=== PATIENT | female | born 1945 | race Caucasian/White ===

== ENCOUNTER 2017-09-24 14:22 | Emergency (ER) | payer OTHER, SELFPAY ==
[2017-09-24 14:41] VITALS: BP 136/58; PULSE 63; RESP 16; TEMP 36.3; O2SAT 96; BMI 37.5
--- NOTE | 2017-09-24 15:21 | ED.NEUROSD ---
HPI - Neuro Symptoms/Deficit General Chief Complaint: Neuro Symptoms/Deficit Stated Complaint: EXTREME SWELLING LOWER LIMBS,SOB,DIZZY,LOSS OF BAL Time Seen by Provider: 09/24/17 15:19 Source: patient Mode of arrival: ambulatory Limitations: no limitations History of Present Illness HPI Narrative: 71-year-old female with a history of multiple medical problems here for evaluation of several issues. Patient states that over the past several days she has had increasing lower extremity swelling. She has a diagnosis of diastolic heart failure. Is on 160 mg of Lasix at bedtime. She denies any chest pain. Denies any shortness of breath. Does state that she has had a 10 lb weight gain within the past week. Patient also states that she is here for 3 separate episodes. She states that yesterday she was leaving her primary doctor's office at the [place] when she was walking around her car and felt very ?unsteady ?unsure whether not she was having vertigo at that time. She states that she felt like she was going to fall over. Did not fall. Recorded no other symptoms at the time. Unsure exactly how long the symptoms lasted. She states that this morning she had 1 further episode very similar to this 1 and also had 1 other episodes where she did have vertigo. Related Data Home Medications Medication Instructions Recorded Confirmed insulin glargine [Lantus U-100 30 unit SQ HS #0 08/18/11 09/24/17 Insulin] lisinopril 20 mg PO QDAY #0 08/18/11 09/24/17 Lubricant Eye 1 applic OPHTHALMIC (EYE) BEDTIME 09/24/17 09/24/17 acetaminophen 650 mg PO Q4H PRN MDD 4000 mg 09/24/17 09/24/17 albuterol sulfate 2 puff INHALATION Q4H PRN 09/24/17 09/24/17 apixaban 5 mg PO BID 09/24/17 09/24/17 chlorhexidine gluconate 15 ml PO BID 09/24/17 09/24/17 clindamycin HCl 600 mg PO .ONCE 09/24/17 09/24/17 clobetasol 1 applic TOPICAL BID PRN 09/24/17 09/24/17 diltiazem HCl 30 mg PO Q6H 09/24/17 09/24/17 ferrous sulfate 7.5 ml PO QPM 09/24/17 09/24/17 fluoride (sodium) 1 applic DENTAL BEDTIME 09/24/17 09/24/17 folic acid 1 mg PO QPM 09/24/17 09/24/17 furosemide 160 mg PO QPM 09/24/17 09/24/17 hydrophilic 1 applic TOPICAL QID PRN 09/24/17 09/24/17 hydroxyzine pamoate 25 mg PO Q4H PRN 09/24/17 09/24/17 lansoprazole 1 tab PO BIDAC 09/24/17 09/24/17 loperamide 1 dose PO PRN PRN MDD 8 caps 09/24/17 09/24/17 magnesium oxide 420 mg PO QPM 09/24/17 09/24/17 methotrexate sodium (PF) 0.3 ml SUB-Q WEEKLY 09/24/17 09/24/17 polyvinyl alcohol [Artificial 1 - 2 drp OPHTHALMIC (EYE) QID PRN 09/24/17 09/24/17 Tears (polyvin alc)] tacrolimus 1 applic TOPICAL BID 09/24/17 09/24/17 vits A and D-white pet-lanolin [A 1 applic TOPICAL DAILY PRN 09/24/17 09/24/17 and D (willie, pet)] Allergies Allergy/AdvReac Type Severity Reaction Status Date / Time adhesive [ADHESIVE] Allergy Mild Unverified 07/16/17 12:18 aspirin [ASPIRIN] Allergy Mild Unverified 07/16/17 12:18 meperidine [From DEMEROL] Allergy Mild Unverified 07/16/17 12:18 metoprolol [METOPROLOL] Allergy Mild Unverified 07/16/17 12:18 pioglitazone [From ACTOS] Allergy Mild Unverified 07/16/17 12:18 prochlorperazine Allergy Mild Unverified 07/16/17 12:18 [From COMPAZINE] rosiglitazone [From AVANDIA] Allergy Mild Unverified 07/16/17 12:18 sulfamethoxazole Allergy Mild Unverified 07/16/17 12:18 [From BACTRIM] trimethoprim [From BACTRIM] Allergy Mild Unverified 07/16/17 12:18 venom-honey bee Allergy Mild Unverified 07/16/17 12:18 [BEE VENOM (HONEY BEE)] pseudoephedrine Allergy Unknown Unverified 07/16/17 12:18 [From ACTIFED] triprolidine [From ACTIFED] Allergy Unknown Unverified 07/16/17 12:18 PORK Allergy Unknown Uncoded 07/16/17 12:18 Review of Systems Constitutional Denies chills, Denies fever(s), Denies headache(s), Denies lethargy and Denies weakness ENT Ears, Nose, Mouth, and Throat: Reports vertigo, Reports dizziness, Denies headache(s), Reports tinnitus (Chronic), Denies sinus pressure, Denies sore throat and Denies throat swelling Cardiovascular Denies chest pain, Reports pedal edema, Reports edema, Denies irregular heart rhythm, Denies leg ulcers, Reports leg edema, Denies palpitations and Denies dyspnea Respiratory Denies chest congestion, Denies cough, Denies dyspnea and Denies wheezing Gastrointestinal Gastrointestinal: Denies constipation, Denies diarrhea, Denies nausea and Denies vomiting Neurologic Reports vertigo, Reports dizziness, Denies headache(s) and Denies weakness Endocrine Denies palpitations Allergic/Immunologic Denies throat swelling and Denies wheezing [facility] Social History Smoking Status: Never smoker Exam Initial Vital Signs Initial Vital Signs: Vital Signs Temperature 97.4 F L 09/24/17 14:41 Pulse Rate 63 09/24/17 14:41 Respiratory Rate 16 09/24/17 14:41 Blood Pressure 136/58 H 09/24/17 14:41 Pulse Oximetry 96 09/24/17 14:41 Const General: cooperative and well developed Nutritional Appearance: well nourished Orientation: alert, awake, oriented x3 and not confused [facility] Head: normocephalic and atraumatic Ears: external ears normal and TM's normal bilaterally Nose: external nose normal and No nasal discharge Face and sinus: sinuses nontender, face symmetric, no sinus tenderness and No dry mucous membranes Mouth: oral mucosae normal and moist mucous membranes Teeth and gingiva: dentition normal Throat: tonsils normal and uvula midline Resp Effort & Inspection: normal respiratory effort, able to speak in complete sentences, no respiratory distress and no use of accessory muscles Auscultation: clear to auscultation bilaterally, no rales, no rhonchi and no wheezes Cardio Rate: regular rate Rhythm: regular rhythm Heart Sounds: no click, no gallops, no murmurs and no rubs Pulses: normal peripheral pulses Back/Spine/Pelvis Back: No CVA tenderness Neuro General: alert, oriented x3, gait normal and no focal motor deficits Cranial Nerves: CN's II-XI intact bilaterally Cognition: normal cognition Speech: speech normal Gait: normal gait Motor: muscle tone normal throughout Sensory Exam: no sensory deficits noted Extrem Other: Patient with 3+ bilateral pitting edema right greater than left from toes to knees Course Orders Ordered: ED Orders 09/24/17 15:19 EKG-12 Lead Stat 09/24/17 15:23 XR chest 1V Stat 09/24/17 15:31 B Type Natriuretic Peptide Stat Basic Metabolic Panel Stat Complete Blood Count AUTO DIFF Stat Troponin I Stat Vital Signs - 8 hr 09/24/17 14:41 09/24/17 15:46 09/24/17 16:05 Temperature 97.4 F L Pulse Rate 63 58 L 60 Respiratory Rate 16 11 L 15 Blood Pressure 136/58 H Blood Pressure [Right Arm] 129/53 H 144/60 H Pulse Oximetry 96 99 99 09/24/17 17:00 Temperature Pulse Rate 55 L Respiratory Rate 12 Blood Pressure Blood Pressure [Right Arm] 120/50 L Pulse Oximetry 97 MDM - Neuro Symptoms/Deficit Lab Data Attestation: I reviewed the patient's lab results. Result diagrams: 09/24/17 15:31 09/24/17 15:31 Lab Results 09/24/17 09/24/17 Range/Units 15:31 15:31 WBC 6.6 (4.5-11.0) X10^3/uL RBC 3.37 L (4.0-5.2) X10^6/uL Hgb 9.3 L (12.0-16.0) g/dL Hct 29.1 L (36-46) % MCV 86.3 (80-100) fL MCH 27.7 (26-34) PG MCHC 32.1 (30-36) % RDW 14.9 H (11.6-14.8) % Plt Count 290 (150-400) X10^3/uL Neut % (Auto) 52.5 (50-75) % Lymph % (Auto) 36.9 (25-40) % [place] % (Auto) 8.1 (3-14) % Eos % (Auto) 2.0 (2-4) % Baso % (Auto) 0.5 (0-2) % Neut # (Auto) 3400 (7679-9056) /uL Sodium 133 L (137-145) mmol/L Potassium 4.8 (3.4-5.1) mmol/L Chloride 96 L (98-107) mmol/L Carbon Dioxide 26 (22-32) mmol/L BUN 46 H (7-17) mg/dL Creatinine 1.20 H (0.52-1.04) mg/dL Estimated GFR 44.2 L (>60) mL/min BUN/Creatinine Ratio 38.3 H (6-22) Glucose 139 H (80-110) mg/dL Calcium 9.2 (8.4-10.2) mg/dL Troponin I < 0.012 (0.01-0.034) ng/mL B-Natriuretic Peptide 159.0 H (<100) Imaging Data Chest x-ray: Radiologist's impression: PROCEDURE: XR CHEST 1V INDICATIONS: Shortness of breath history of congestive heart failure TECHNIQUE: One view of the chest was acquired. COMPARISON: [facility], CHEST 1 VIEW, 04/04/2017, 10:10. FINDINGS: Surgical changes and devices: None. Lungs and pleura: No pleural effusions or pneumothorax. Lungs are free of pneumonia but there is a chronic mild degree of interstitial prominence. Mediastinum: Mediastinal contours appear normal. Heart size is normal. Bones and chest wall: No suspicious bony lesions. Overlying soft tissues appear unremarkable. IMPRESSION: Mild interstitial prominence, no pneumonia found. Dictated by: Erik Nelson M.D. on 09/24/2017 at 15:44 ECG Data Attestation: I personally reviewed and interpreted this ECG as follows: Prior ECG tracings: available for review Interpretation: Time 1519 hr Sinus rhythm First degree AV block Ventricular rate is 61 Normal axis Normal interval Normal QRS No ST T wave changes Unchanged from comparison EKG dated 04/04/2017 MDM Narrative Medical decision making narrative: Patient with a normal neurologic exam here in the emergency department. Does have bilateral lower extremity swelling which she reports as a 10 lb weight gain over the past week however has no respiratory distress and no chest pain clinically is not in heart failure. We did discuss this with the patient. Decision was made to increase the patient's Lasix to 40 mg in the morning in her normal 160 mg in the evening. Her neurologic symptoms are not consistent with a CVA. Not consistent with a TIA. Had a normal neurologic exam here. Do suspect vertigo since she clearly describes this as 1 of her episodes that she had. She does have a follow-up appoint with her primary doctor on Friday. She was given return precautions. She expressed understanding and agreement with plan. Discharge Plan Departure Patient Disposition: Home, Self-Care Clinical Impression: Edema, Vertigo, Lightheadedness Discharge Date/Time: 09/24/17 17:46 Interventions: ED Discharge Assessment Last Done: 09/24/17 17:41 Instructions: Edema (Alternative Therapy), DI for Dependent Edema Activity Restrictions/Additional Instructions: Recommend that you increase her Lasix to 40 mg in the morning and 160 mg in the evening like we discussed. Keep your appointment that she have with her primary doctor on Friday. Return to the emergency department for any new or worsening symptoms Prescriptions: No Action lisinopril 20 MG tablet 20 mg PO QDAY Qty: 0 RF: 0 insulin glargine [Lantus U-100 Insulin] 100 UNIT/1 ML solution 30 unit SQ HS Qty: 0 RF: 0 acetaminophen 325 mg Tablet 650 mg PO Q4H MDD 4000 mg PRN (Reason: Pain, Moderate) RF: 0 magnesium oxide 420 mg Tablet 420 mg PO QPM RF: 0 clindamycin HCl 300 mg Capsule 600 mg PO .ONCE RF: 0 loperamide 2 mg Capsule 1 dose PO PRN MDD 8 caps PRN (Reason: Diarrhea) RF: 0 hydrophilic Ointment 1 applic TOPICAL QID PRN (Reason: Dry Skin) RF: 0 polyvinyl alcohol [Artificial Tears (polyvin alc)] 1.4 % Drops 1 - 2 drp ophthalmic (eye) QID PRN (Reason: Dry Eyes) RF: 0 furosemide 80 mg Tablet 160 mg PO QPM RF: 0 tacrolimus 0.1 % Ointment 1 applic TOPICAL BID RF: 0 folic acid 1 mg Tablet 1 mg PO QPM RF: 0 clobetasol 0.05 % Ointment 1 applic TOPICAL BID PRN (Reason: Rash) RF: 0 albuterol sulfate 90 mcg/actuation Hfa Aerosol Inhaler 2 puff Inhalation Q4H PRN (Reason: Shortness Of Breath) RF: 0 diltiazem HCl 30 mg Tablet 30 mg PO Q6H RF: 0 fluoride (sodium) 1.1 % Gel 1 applic Dental BEDTIME RF: 0 hydroxyzine pamoate 25 mg Capsule 25 mg PO Q4H PRN (Reason: anxiety or sleep) RF: 0 methotrexate sodium (PF) 25 mg/mL Solution 0.3 ml Sub-Q WEEKLY RF: 0 lansoprazole 30 mg Tablet,Disintegrat, Delay Rel 1 tab PO BIDAC RF: 0 chlorhexidine gluconate 0.12 % Mouthwash 15 ml PO BID RF: 0 vits A and D-white pet-lanolin [A and D (willie, pet)] Ointment 1 applic Topical DAILY PRN (Reason: Dry Skin) RF: 0 apixaban 5 mg Tablet 5 mg PO BID RF: 0 ferrous sulfate 220 mg (44 mg iron)/5 mL Elixir 7.5 ml PO QPM RF: 0 Lubricant Eye ointment 1 applic ophthalmic (eye) BEDTIME RF: 0
[2017-09-24 15:46] VITALS: BP 129/53; PULSE 58; RESP 11; O2SAT 99
[2017-09-24 15:50] LABS: Add Manual Diff / Slide Review NO; Basophils Percent Auto 0.5 % (0-2); Hematocrit 29.1 % (36-46); Hemoglobin 9.3 g/dL (12.0-16.0); Lymphocytes Percent Auto 36.9 % (25-40); Mean Corpuscular HGB Conc 32.1 % (30-36); Mean Corpuscular Hemoglobin 27.7 PG (26-34); Mean Corpuscular Volume 86.3 fL (80-100); Monocytes Percent Auto 8.1 % (3-14); Neutrophils Absolute Auto 3400 /uL (3000-5900); Neutrophils Percent Auto 52.5 % (50-75); Platelet Count 290 X10^3/uL (150-400); Red Blood Cell Count 3.37 X10^6/uL (4.0-5.2); Red Cell Distribution Width 14.9 % (11.6-14.8); White Blood Cell Count 6.6 X10^3/uL (4.5-11.0)
--- NOTE | 2017-09-24 15:54 | PC.NURSE ---
Pt recently dx'd with afib and pneumonia. Yesterday began to feel dizzy. This morning woke up with room spinning and increased difficulty with gait. She has an abnormal gait as baseline, which she uses a walker for. However, she states today it is worse and she almost fell in the bathroom. She also reports a 6lb weight gain overnight and SOB yesterday. Today she does have SOB with exertion and cough.
[2017-09-24 15:56] LABS: BUN Creatinine Ratio 38.3 (6-22); Blood Urea Nitrogen 46 mg/dL (7-17); Calcium 9.2 mg/dL (8.4-10.2); Carbon Dioxide 26 mmol/L (22-32); Chloride 96 mmol/L (98-107); Estimated Glomerular Filt Rate 44.2 mL/min (>60); Glucose 139 mg/dL (80-110); HEMOLYSIS < 15 (0-50); Potassium 4.8 mmol/L (3.4-5.1); Sodium 133 mmol/L (137-145)
[2017-09-24 16:05] VITALS: BP 144/60; PULSE 60; RESP 15; O2SAT 99
[2017-09-24 16:08] LABS: Troponin I < 0.012 ng/mL (0.01-0.034)
[2017-09-24 17:00] VITALS: BP 120/50; PULSE 55; RESP 12; O2SAT 97
== END 2017-09-24 17:46 | disposition home or self-care (01) ==
PROVIDERS: Emergency Provider Emergency Medicine; PCP Internal Medicine
DX: R60.9 Edema, unspecified (principal); R42 Dizziness and giddiness
CPT/HCPCS: 36591; 71045; 80048; 83880; 84484; 85025; 93005; 93010; 99283; 99285; 99291

== ENCOUNTER 2017-11-05 13:48 | Emergency (ER) | payer OTHER, SELFPAY ==
[2017-11-05] VITALS (8 sets, daily range): BP systolic 102–123; BP diastolic 41–60; PULSE 65–129; RESP 16–18; O2SAT 96–99; BMI 36.3
--- NOTE | 2017-11-05 13:58 | ED_ITS ---
HPI - General Adult General Chief complaint: Arrhythmia/Palpitations Stated complaint: HEART AND AFIB ISSUES Time Seen by Provider: 11/05/17 13:57 Source: patient Mode of arrival: ambulatory Limitations: no limitations History of Present Illness HPI narrative: 72-year-old female here for evaluation of palpitations and not feeling well. States that this is been off and on for some time but worsening over the past day or so. No chest pain but does have some shortness of breath. States she does have a history of atrial fibrillation. Has been on diltiazem in the past but has stopped secondary to swelling in her lower extremities. She is on anticoagulation states she does take it 2 times a day and has been taking it has not missed a dose. She stated that she did take her diltiazem this morning because she was feeling the palpitations. Came into the emergency department for evaluation. Related Data Home Medications Medication Instructions Recorded Confirmed insulin glargine [Lantus U-100 30 unit SQ HS #0 08/18/11 11/05/17 Insulin] lisinopril 20 mg PO QDAY #0 08/18/11 11/05/17 Lubricant Eye 1 applic OPHTHALMIC (EYE) BEDTIME 09/24/17 11/05/17 acetaminophen 650 mg PO Q4H PRN MDD 4000 mg 09/24/17 11/05/17 albuterol sulfate 2 puff INHALATION Q4H PRN 09/24/17 11/05/17 apixaban 5 mg PO BID 09/24/17 11/05/17 chlorhexidine gluconate 15 ml PO BID 09/24/17 11/05/17 clindamycin HCl 600 mg PO .ONCE 09/24/17 11/05/17 clobetasol 1 applic TOPICAL BID PRN 09/24/17 11/05/17 diltiazem HCl 30 mg PO Q6H 09/24/17 11/05/17 ferrous sulfate 7.5 ml PO QPM 09/24/17 11/05/17 fluoride (sodium) 1 applic DENTAL BEDTIME 09/24/17 11/05/17 folic acid 1 mg PO DAILY 09/24/17 11/05/17 furosemide 160 mg PO QAM 09/24/17 11/05/17 lansoprazole 1 tab PO BIDAC 09/24/17 11/05/17 magnesium oxide 420 mg PO QPM 09/24/17 11/05/17 tacrolimus 1 applic TOPICAL BID 09/24/17 11/05/17 vits A and D-white pet-lanolin [A 1 applic TOPICAL DAILY PRN 09/24/17 11/05/17 and D (willie, pet)] carboxymethylcellulose sodium 1 - 2 drp OPHTHALMIC (EYE) QID 11/05/17 11/05/17 cholecalciferol (vitamin D3) 4,000 unit PO DAILY 11/05/17 11/05/17 [Vitamin D3] coenzyme Q10 1 cap PO DAILY 11/05/17 11/05/17 cyanocobalamin (vitamin B-12) 5,000 mcg PO DAILY 11/05/17 11/05/17 cyclosporine 5 ml PO TID 11/05/17 11/05/17 dextrose 15 g PO PRN PRN 11/05/17 11/05/17 metformin 500 mg PO BID 11/05/17 11/05/17 methotrexate sodium 7.5 mg PO QWEEK 11/05/17 11/05/17 metronidazole 500 mg PO BID 11/05/17 11/05/17 multivitamin with minerals 1 cap PO DAILY 11/05/17 11/05/17 nitroglycerin [Nitrostat] 0.4 mg SUBLINGUAL Q5-15M PRN 11/05/17 11/05/17 Allergies Allergy/AdvReac Type Severity Reaction Status Date / Time adhesive [ADHESIVE] Allergy Mild Verified 11/05/17 17:49 aspirin [ASPIRIN] Allergy Mild Verified 11/05/17 17:49 meperidine [From DEMEROL] Allergy Mild Verified 11/05/17 17:49 metoprolol [METOPROLOL] Allergy Mild Verified 11/05/17 17:49 pioglitazone [From ACTOS] Allergy Mild Verified 11/05/17 17:49 prochlorperazine Allergy Mild Verified 11/05/17 17:49 [From COMPAZINE] rosiglitazone [From AVANDIA] Allergy Mild Verified 11/05/17 17:49 sulfamethoxazole Allergy Mild Verified 11/05/17 17:49 [From BACTRIM] trimethoprim [From BACTRIM] Allergy Mild Verified 11/05/17 17:49 venom-honey bee Allergy Mild Verified 11/05/17 17:49 [BEE VENOM (HONEY BEE)] pseudoephedrine Allergy Unknown Verified 11/05/17 17:49 [From ACTIFED] triprolidine [From ACTIFED] Allergy Unknown Verified 11/05/17 17:49 PORK Allergy Unknown Uncoded 11/05/17 17:49 iv contrast Allergy Uncoded 11/05/17 17:49 Review of Systems Constitutional Denies chills and Reports fatigue ENT Ears, Nose, Mouth, and Throat: Denies vertigo and Denies dizziness Cardiovascular Denies chest pain, Reports rapid heart rate, Reports palpitations and Reports dyspnea Respiratory Denies chest congestion, Denies cough and Reports dyspnea Gastrointestinal Gastrointestinal: Denies diarrhea, Denies nausea and Denies vomiting Genitourinary Denies difficulty voiding and Denies dysuria Musculoskeletal Denies myalgias and Denies arthralgias Integumentary/Breasts Denies lesions and Denies rash Neurologic Denies vertigo and Denies dizziness Endocrine Reports fatigue and Reports palpitations Hematologic/Lymphatic Reports easy bleeding ( On anticoagulation) and Denies easy bruising [facility] Medical History Atrial fibrillation (Acute) Social History Smoking Status: Never smoker Comment: reviewed patient's past medical surgical family and social history Exam Initial Vital Signs Initial Vital Signs: Vital Signs Pulse Rate 74 11/05/17 13:48 Respiratory Rate 18 11/05/17 13:48 Blood Pressure 123/60 H 11/05/17 13:48 Pulse Oximetry 96 11/05/17 13:48 Const General: cooperative, healthy appearing, comfortable, well developed, well groomed and No acute distress Orientation: alert, awake and oriented x3 HENNM Head: normal to inspection and normocephalic Resp Effort & Inspection: normal respiratory effort Auscultation: clear to auscultation bilaterally Cardio Rate: tachycardic Rhythm: regular rhythm Pulses: radial pulses present GI Inspection: non-distended Palpation: soft Skin Lesions: no lesions Rashes: no rashes Neuro General: alert, awake and oriented x3 Cognition: normal cognition Speech: speech normal Motor: muscle tone normal throughout Sensory Exam: no sensory deficits noted Extrem Other: bilateral lower extremity swelling otherwise no gross deformities Psych Appearance: grossly normal and well kempt Course Orders Ordered: ED Orders 11/05/17 14:05 B Type Natriuretic Peptide Stat Complete Blood Count AUTO DIFF Stat Comprehensive Metabolic Panel Stat Lipase Stat Magnesium Stat Partial Thromboplastin Time Stat Phosphorous Stat Prothrombin Time INR Stat Troponin I Stat 11/05/17 14:12 XR chest 1V Stat Discontinued Medications Diltiazem HCl (Cardizem) 10 mg IV NOW ONE Stop: 11/05/17 14:28 Last Admin: 11/05/17 16:22 Dose: Sodium Chloride (Normal Saline 0.9%) 1,000 mls @ 500 mls/hr IV BOLUS ONE Stop: 11/05/17 16:08 Last Infusion: 11/05/17 16:31 Dose: 0 mls/hr Admin: 11/05/17 14:23 Dose: 500 mls/hr Diltiazem HCl 125 mg/ Dextrose 125 mls @ 5 mls/hr IV TITRATE URVASHI; Protocol Last Admin: 11/05/17 16:23 Dose: Vital Signs - 8 hr 11/05/17 13:48 11/05/17 14:00 11/05/17 15:09 Pulse Rate 74 129 H 74 Respiratory Rate 18 18 18 Blood Pressure 123/60 H Blood Pressure [Left Arm] 123/60 H 116/43 L Pulse Oximetry 96 99 96 11/05/17 16:22 11/05/17 16:23 11/05/17 16:33 Pulse Rate 67 67 68 Respiratory Rate 16 Blood Pressure 116/52 L 116/57 L Blood Pressure [Left Arm] 104/54 L Pulse Oximetry 97 11/05/17 16:49 11/05/17 17:51 Pulse Rate 84 65 Respiratory Rate 18 16 Blood Pressure 102/41 L Blood Pressure [Left Arm] 104/54 L Pulse Oximetry 98 97 Medical Decision Making [facility] Narrative Medical decision making narrative: Patient with a history of atrial fibrillation. She is on anticoagulation. She did take a diltiazem pill before arriving here to the emergency department. Initial EKG shows atrial flutter versus sinus tachycardia. It was a regular rhythm. Chest x-ray is unremarkable. Prior to administration of any medication here in the emergency department the patient converted back to sinus rhythm. This was confirmed the repeat EKG. Patient states she felt much better after converting. Will discharge the patient home. She will take her diltiazem every 6 hr as directed by her allocations clerk. She is also going to continue on her anticoagulation. She was given return precautions. She was instructed she needed to contact her primary doctor and her allocations clerk for follow-up. She expressed understanding and agreement with plan. Lab Data Lab results reviewed: Yes I reviewed the patient's lab results. Result diagrams: 11/05/17 14:05 11/05/17 14:05 Lab Results 11/05/17 11/05/17 11/05/17 Range/Units 14:05 14:05 14:05 WBC 10.1 (4.5-11.0) X10^3/uL RBC 4.04 (4.0-5.2) X10^6/uL Hgb 11.3 L (12.0-16.0) g/dL Hct 34.2 L (36-46) % MCV 84.6 (80-100) fL MCH 28.1 (26-34) PG MCHC 33.2 (30-36) % RDW 14.8 (11.6-14.8) % Plt Count 307 (150-400) X10^3/uL Neut % (Auto) 65.9 (50-75) % Lymph % (Auto) 27.7 (25-40) % Crosby % (Auto) 5.2 (3-14) % Eos % (Auto) 0.7 L (2-4) % Baso % (Auto) 0.5 (0-2) % Neut # (Auto) 6600 H (2274-8455) /uL PT 14.9 H (10.1-12.7) SECONDS INR 1.4 H (0.9-1.3) APTT 30 (26.4-36.2) SECONDS Sodium (137-145) mmol/L Potassium (3.4-5.1) mmol/L Chloride (98-107) mmol/L Carbon Dioxide (22-32) mmol/L BUN (7-17) mg/dL Creatinine (0.52-1.04) mg/dL Estimated GFR (>60) mL/min BUN/Creatinine Ratio (6-22) Glucose (80-110) mg/dL Calcium (8.4-10.2) mg/dL Phosphorus (2.8-4.1) mg/dL Magnesium (1.6-2.3) mg/dL Total Bilirubin (0.2-1.3) mg/dL AST (14-36) IU/L ALT (9-52) IU/L Alkaline Phosphatase (38-126) U/L Troponin I (0.01-0.034) ng/mL B-Natriuretic Peptide 169.0 H (<100) Total Protein (6.3-8.2) g/dL Albumin (3.5-5.0) g/dL Globulin (1.7-4.1) g/dL Albumin/Globulin Ratio (1.0-2.8) Lipase (23-300) U/L 11/05/17 Range/Units 14:05 WBC (4.5-11.0) X10^3/uL RBC (4.0-5.2) X10^6/uL Hgb (12.0-16.0) g/dL Hct (36-46) % MCV (80-100) fL MCH (26-34) PG MCHC (30-36) % RDW (11.6-14.8) % Plt Count (150-400) X10^3/uL Neut % (Auto) (50-75) % Lymph % (Auto) (25-40) % Crosby % (Auto) (3-14) % Eos % (Auto) (2-4) % Baso % (Auto) (0-2) % Neut # (Auto) (2631-9342) /uL PT (10.1-12.7) SECONDS INR (0.9-1.3) APTT (26.4-36.2) SECONDS Sodium 137 (137-145) mmol/L Potassium 3.4 (3.4-5.1) mmol/L Chloride 96 L (98-107) mmol/L Carbon Dioxide 27 (22-32) mmol/L BUN 31 H (7-17) mg/dL Creatinine 1.10 H (0.52-1.04) mg/dL Estimated GFR 48.7 L (>60) mL/min BUN/Creatinine Ratio 28.2 H (6-22) Glucose 229 H (80-110) mg/dL Calcium 9.6 (8.4-10.2) mg/dL Phosphorus 4.7 H (2.8-4.1) mg/dL Magnesium 1.4 L (1.6-2.3) mg/dL Total Bilirubin 0.4 (0.2-1.3) mg/dL AST 23 (14-36) IU/L ALT 19 (9-52) IU/L Alkaline Phosphatase 60 (38-126) U/L Troponin I < 0.012 (0.01-0.034) ng/mL B-Natriuretic Peptide (<100) Total Protein 7.5 (6.3-8.2) g/dL Albumin 4.3 (3.5-5.0) g/dL Globulin 3.2 (1.7-4.1) g/dL Albumin/Globulin Ratio 1.3 (1.0-2.8) Lipase 148 (23-300) U/L Imaging Data Chest x-ray: Radiologist's impression: PROCEDURE: XR CHEST 1V INDICATIONS: palpitations TECHNIQUE: One view of the chest was acquired. COMPARISON: [facility], , XR CHEST 1V, 09/24/2017, 15:32. [facility], , CHEST 1 VIEW, 04/04/2017, 10:10. FINDINGS: Surgical changes and devices: None. Lungs and pleura: No pleural effusions or pneumothorax. Lungs are clear except for mild interstitial prominence previously present. Mediastinum: Mediastinal contours appear normal. Heart size is normal. Bones and chest wall: No suspicious bony lesions. Overlying soft tissues appear unremarkable. IMPRESSION: No sign of CHF, mild chronic interstitial prominence within the lung parenchyma which may reflect prior smoking history. Dictated by: Erik Nelson M.D. on 11/05/2017 at 14:40 Approved by: Erik Nelson M.D. on 11/05/2017 at 14:40 ECG Data Attestation: I personally reviewed and interpreted this ECG as follows: Prior ECG tracings: not available for review Interpretation: EKG time 1354 hr atrial flutter ventricular rate of 124 Normal axis Normal QRS QTC [address] T wave changes repeat EKG timed 1514 hr sinus rhythm ventricular rate is 66 normal axis Normal QRS QTC of 416 milliseconds first degree AV block Discharge Plan Departure Patient Disposition: Home, Self-Care Clinical Impression: Atrial flutter Discharge Date/Time: 11/05/17 17:52 Interventions: ED Discharge Assessment Last Done: 11/05/17 17:51 Instructions: Atrial Flutter Activity Restrictions/Additional Instructions: continue all of your medications likely discussed. Contact your primary care doctor and/or allocations clerk to discuss continued medications. Return to the emergency department for any new or worsening symptoms Prescriptions: No Action lisinopril 20 MG tablet 20 mg PO QDAY Qty: 0 RF: 0 insulin glargine [Lantus U-100 Insulin] 100 UNIT/1 ML solution 30 unit SQ HS Qty: 0 RF: 0 acetaminophen 325 mg Tablet 650 mg PO Q4H MDD 4000 mg PRN (Reason: Pain, Moderate) RF: 0 magnesium oxide 420 mg Tablet 420 mg PO QPM RF: 0 clindamycin HCl 300 mg Capsule 600 mg PO .ONCE RF: 0 furosemide 80 mg Tablet 160 mg PO QAM RF: 0 tacrolimus 0.1 % Ointment 1 applic TOPICAL BID RF: 0 folic acid 1 mg Tablet 1 mg PO DAILY RF: 0 clobetasol 0.05 % Ointment 1 applic TOPICAL BID PRN (Reason: Rash) RF: 0 albuterol sulfate 90 mcg/actuation Hfa Aerosol Inhaler 2 puff Inhalation Q4H PRN (Reason: Shortness Of Breath) RF: 0 diltiazem HCl 30 mg Tablet 30 mg PO Q6H RF: 0 fluoride (sodium) 1.1 % Gel 1 applic Dental BEDTIME RF: 0 lansoprazole 30 mg Tablet,Disintegrat, Delay Rel 1 tab PO BIDAC RF: 0 chlorhexidine gluconate 0.12 % Mouthwash 15 ml PO BID RF: 0 vits A and D-white pet-lanolin [A and D (willie, pet)] Ointment 1 applic Topical DAILY PRN (Reason: Dry Skin) RF: 0 apixaban 5 mg Tablet 5 mg PO BID RF: 0 ferrous sulfate 220 mg (44 mg iron)/5 mL Elixir 7.5 ml PO QPM RF: 0 Lubricant Eye ointment 1 applic ophthalmic (eye) BEDTIME RF: 0 dextrose 40 % Gel 15 g PO PRN PRN (Reason: BS<70) RF: 0 cyclosporine 100 mg/mL Solution 5 ml PO TID RF: 0 carboxymethylcellulose sodium 0.5 % Dropperette 1 - 2 drp ophthalmic (eye) QID RF: 0 metformin 500 mg Tablet 500 mg PO BID RF: 0 cyanocobalamin (vitamin B-12) 1,000 mcg Tablet 5,000 mcg PO DAILY RF: 0 metronidazole 500 mg Tablet 500 mg PO BID RF: 0 methotrexate sodium 2.5 mg Tablet 7.5 mg PO QWEEK RF: 0 nitroglycerin [Nitrostat] 0.4 mg Tablet, Sublingual 0.4 mg SUBLINGUAL Q5-15M PRN (Reason: Chest Pain) RF: 0 multivitamin with minerals Capsule 1 cap PO DAILY RF: 0 cholecalciferol (vitamin D3) [Vitamin D3] 4,000 unit Capsule 4,000 unit PO DAILY RF: 0 coenzyme Q10 1 cap PO DAILY RF: 0
--- NOTE | 2017-11-05 14:12 | DI.RAD.S_ITS ---
PROCEDURE: XR CHEST 1V INDICATIONS: palpitations TECHNIQUE: One view of the chest was acquired. COMPARISON: [facility], , XR CHEST 1V, 09/24/2017, 15:32. [facility], CR, CHEST 1 VIEW, 04/04/2017, 10:10. FINDINGS: Surgical changes and devices: None. Lungs and pleura: No pleural effusions or pneumothorax. Lungs are clear except for mild interstitial prominence previously present. Mediastinum: Mediastinal contours appear normal. Heart size is normal. Bones and chest wall: No suspicious bony lesions. Overlying soft tissues appear unremarkable. IMPRESSION: No sign of CHF, mild chronic interstitial prominence within the lung parenchyma which may reflect prior smoking history. Dictated by: Erik Nelson M.D. on 11/05/2017 at 14:40 Approved by: Erik Nelson M.D. on 11/05/2017 at 14:40
[2017-11-05 14:23] LABS: Add Manual Diff / Slide Review NO; Basophils Percent Auto 0.5 % (0-2); Eosinophils Percent Auto 0.7 % (2-4); Hematocrit 34.2 % (36-46); Hemoglobin 11.3 g/dL (12.0-16.0); Lymphocytes Percent Auto 27.7 % (25-40); Mean Corpuscular HGB Conc 33.2 % (30-36); Mean Corpuscular Hemoglobin 28.1 PG (26-34); Mean Corpuscular Volume 84.6 fL (80-100); Monocytes Percent Auto 5.2 % (3-14); Neutrophils Absolute Auto 6600 /uL (3000-5900); Neutrophils Percent Auto 65.9 % (50-75); Platelet Count 307 X10^3/uL (150-400); Red Blood Cell Count 4.04 X10^6/uL (4.0-5.2); Red Cell Distribution Width 14.8 % (11.6-14.8); White Blood Cell Count 10.1 X10^3/uL (4.5-11.0)
[2017-11-05] MEDS: SODIUM CHLORIDE 0.9% 1,000 ML 500 ML IV (14:23)
[2017-11-05 14:28] LABS: INR 1.4 (0.9-1.3); Prothrombin Time 14.9 SECONDS (10.1-12.7)
[2017-11-05 14:29] LABS: PTT Partial Thromboplastin Tim 30 SECONDS (26.4-36.2)
[2017-11-05 14:31] LABS: Alanine Aminotransferase 19 IU/L (9-52); Albumin 4.3 g/dL (3.5-5.0); Albumin Globulin Ratio 1.3 (1.0-2.8); Alkaline Phosphatase 60 U/L (38-126); Aspartate Aminotransferase 23 IU/L (14-36); BUN Creatinine Ratio 28.2 (6-22); Bilirubin Total 0.4 mg/dL (0.2-1.3); Blood Urea Nitrogen 31 mg/dL (7-17); Calcium 9.6 mg/dL (8.4-10.2); Carbon Dioxide 27 mmol/L (22-32); Chloride 96 mmol/L (98-107); Estimated Glomerular Filt Rate 48.7 mL/min (>60); Globulin 3.2 g/dL (1.7-4.1); Glucose 229 mg/dL (80-110); HEMOLYSIS < 15 (0-50); Lipase 148 U/L (23-300); Magnesium 1.4 mg/dL (1.6-2.3); Phosphorous 4.7 mg/dL (2.8-4.1); Potassium 3.4 mmol/L (3.4-5.1); Sodium 137 mmol/L (137-145); Total Protein 7.5 g/dL (6.3-8.2)
[2017-11-05 14:47] LABS: Troponin I < 0.012 ng/mL (0.01-0.034)
--- NOTE | 2017-11-05 16:35 | PC.NURSE ---
went to give the patient diltiazem and checked patients heart rate, rhythm and blood pressure and noticed that she converted to a NSR before the medication was given. EKG was ordered to confirm.
== END 2017-11-05 17:52 | disposition home or self-care (01) ==
PROVIDERS: Emergency Provider Emergency Medicine; PCP Internal Medicine
DX: I48.92 Unspecified atrial flutter (principal)
CPT/HCPCS: 36591; 71045; 80053; 83690; 83735; 83880; 84100; 84484; 85025; 85610; 85730; 93005; 93010; 96360; 96361; 99283; 99285

== ENCOUNTER → 2017-12-05 13:56 | Outpatient (CLI) | payer OTHER, SELFPAY ==
--- NOTE | 2017-12-05 | DI.MG.S_ITS ---
BILATERAL DIGITAL SCREENING MAMMOGRAM 3D/2D WITH CAD: 12/05/2017 CLINICAL: Routine screening. Family history of breast cancer. Comparison is made to exams dated: 08/09/2016 mammogram, 03/21/2015 mammogram, and 01/07/2013 mammogram - [facility]. The tissue of both breasts is predominantly fatty. Current study was also evaluated with a Computer Aided Detection (CAD) system. No significant masses, calcifications, or other findings are seen in either breast. There has been no significant interval change. IMPRESSION: NEGATIVE There is no mammographic evidence of malignancy. A 1 year screening mammogram is recommended. This exam was interpreted at Station ID: [id number]. NOTE: For mammograms, a report in lay terms will be sent to the patient. Approximately 15% of breast malignancies will not be visualized mammographically. In the management of a palpable breast mass, a negative mammogram must not discourage biopsy of a clinically suspicious lesion. Electronically Signed By: Thomas mina/erica:12/05/2017 16:34:41 letter sent: Normal Exam ACR BI-RADS Category 1: Negative [id number]
== END ==
PROVIDERS: PCP Internal Medicine; Visit Provider Internal Medicine
DX: Z12.31 Encounter for screening mammogram for malignant neoplasm of breast (principal); Z80.3 Family history of malignant neoplasm of breast
CPT/HCPCS: 77063; 77067

== ENCOUNTER 2018-04-15 19:56 | Emergency (ER) | payer OTHER, SELFPAY ==
[2018-04-15 20:00] VITALS: BP 127/56; PULSE 70; RESP 20; TEMP 36.7; O2SAT 96
[2018-04-15 20:32] VITALS: BP 135/52; PULSE 71; RESP 13; O2SAT 96
[2018-04-15 20:33] VITALS: BP 127/56; PULSE 71; RESP 13; TEMP 36.7; O2SAT 96
[2018-04-15 20:34] LABS: Add Manual Diff / Slide Review NO; Basophils Percent Auto 0.4 % (0-2); Eosinophils Percent Auto 1.7 % (2-4); Hematocrit 31.3 % (36-46); Hemoglobin 10.4 g/dL (12.0-16.0); Lymphocytes Percent Auto 27.3 % (25-40); Mean Corpuscular HGB Conc 33.3 % (30-36); Mean Corpuscular Hemoglobin 30.8 PG (26-34); Mean Corpuscular Volume 92.4 fL (80-100); Monocytes Percent Auto 6.4 % (3-14); Neutrophils Absolute Auto 5300 /uL (1500-7000); Neutrophils Percent Auto 64.2 % (50-75); Platelet Count 296 X10^3/uL (150-400); Red Blood Cell Count 3.39 X10^6/uL (4.0-5.2); Red Cell Distribution Width 17.5 % (11.6-14.8); White Blood Cell Count 8.3 X10^3/uL (4.5-11.0)
[2018-04-15 20:39] LABS: INR 1.2 (0.9-1.3); Prothrombin Time 14.1 SECONDS (10.1-12.7)
[2018-04-15 20:44] LABS: Alanine Aminotransferase 21 IU/L (9-52); Albumin 4.5 g/dL (3.5-5.0); Albumin Globulin Ratio 1.3 (1.0-2.8); Alkaline Phosphatase 55 U/L (38-126); Aspartate Aminotransferase 24 IU/L (14-36); BUN Creatinine Ratio 39.2 (6-22); Bilirubin Total 0.4 mg/dL (0.2-1.3); Blood Urea Nitrogen 51 mg/dL (7-17); Calcium 9.2 mg/dL (8.4-10.2); Carbon Dioxide 26 mmol/L (22-32); Chloride 82 mmol/L (98-107); Estimated Glomerular Filt Rate 40.2 mL/min (>60); Globulin 3.4 g/dL (1.7-4.1); Glucose 181 mg/dL (80-110); HEMOLYSIS < 15 (0-50); Potassium 3.7 mmol/L (3.4-5.1); Sodium 122 mmol/L (137-145); Total Protein 7.9 g/dL (6.3-8.2)
[2018-04-15 21:00] VITALS: BP 124/49; PULSE 70; RESP 12; O2SAT 100
[2018-04-15 22:00] VITALS: BP 151/48; PULSE 68; RESP 17; O2SAT 98
[2018-04-15 23:00] VITALS: BP 127/71; PULSE 70; RESP 15; O2SAT 98
--- NOTE | 2018-04-18 18:13 | ED_ITS ---
HPI - Recheck/Abnormal Lab/Rx General Chief Complaint: Recheck/Abnormal Lab/Rx Stated Complaint: ABNORMAL LAB RESULTS Time Seen by Provider: 04/15/18 20:24 Source: patient and family Mode of arrival: ambulatory Limitations: no limitations History of Present Illness HPI narrative: Patient comes to the emergency department after being sent by her primary care physician for hyponatremia. Patient has been on metolazone for diuresis, and her primary care physician, with whom I spoke prior to the patient's arrival, believes is the culprit. Patient had a normal sodium about a month ago, but levels were found to be steadily dropping over the last month to their the level yesterday of 121. Patient's primary care physician stated to me that she spoke with the patient on the phone earlier, the patient seems somewhat confused, and she was concerned that this may be from the hyponatremia. Patient states that when her primary care physician called, she had been in the middle of a nap and was soundly asleep prior to answering the phone. The patient's brother, who is present, states the patient does not seem confused at this time. Patient states that she has been on the metolazone because of refractory lower extremity edema. Patient states that she has not had any trouble with pulmonary edema, and has not had any shortness of breath or chest pain. Patient denies seizure activity. She states she has felt somewhat tired lately, but does have her live-in granddaughter at home to help her. Patient states that she did hold her dose of metolazone today, and that the levels of sodium were drawn yesterday. Patient denies any other recent signs of illness. She states she has not felt any worse since holding the metolazone. She states her edema is about as it has been. No other complaints at this time. Patient does note that she has an appointment with her electronic resources librarian tomorrow morning. Related Data Home Medications Medication Instructions Recorded Confirmed insulin glargine [Lantus U-100 30 unit SQ HS #0 08/18/11 11/05/17 Insulin] lisinopril 20 mg PO QDAY #0 08/18/11 11/05/17 Lubricant Eye 1 applic OPHTHALMIC (EYE) BEDTIME 09/24/17 11/05/17 acetaminophen 650 mg PO Q4H PRN MDD 4000 mg 09/24/17 11/05/17 albuterol sulfate 2 puff INHALATION Q4H PRN 09/24/17 11/05/17 apixaban 5 mg PO BID 09/24/17 11/05/17 chlorhexidine gluconate 15 ml PO BID 09/24/17 11/05/17 clindamycin HCl 600 mg PO .ONCE 09/24/17 11/05/17 clobetasol 1 applic TOPICAL BID PRN 09/24/17 11/05/17 diltiazem HCl 30 mg PO Q6H 09/24/17 11/05/17 ferrous sulfate 7.5 ml PO QPM 09/24/17 11/05/17 fluoride (sodium) 1 applic DENTAL BEDTIME 09/24/17 11/05/17 folic acid 1 mg PO DAILY 09/24/17 11/05/17 furosemide 160 mg PO QAM 09/24/17 11/05/17 lansoprazole 1 tab PO BIDAC 09/24/17 11/05/17 magnesium oxide 420 mg PO QPM 09/24/17 11/05/17 tacrolimus 1 applic TOPICAL BID 09/24/17 11/05/17 vits A and D-white pet-lanolin [A 1 applic TOPICAL DAILY PRN 09/24/17 11/05/17 and D (willie, pet)] carboxymethylcellulose sodium 1 - 2 drp OPHTHALMIC (EYE) QID 11/05/17 11/05/17 cholecalciferol (vitamin D3) 4,000 unit PO DAILY 11/05/17 11/05/17 [Vitamin D3] coenzyme Q10 1 cap PO DAILY 11/05/17 11/05/17 cyanocobalamin (vitamin B-12) 5,000 mcg PO DAILY 11/05/17 11/05/17 cyclosporine 5 ml PO TID 11/05/17 11/05/17 dextrose 15 g PO PRN PRN 11/05/17 11/05/17 metformin 500 mg PO BID 11/05/17 11/05/17 methotrexate sodium 7.5 mg PO QWEEK 11/05/17 11/05/17 metronidazole 500 mg PO BID 11/05/17 11/05/17 multivitamin with minerals 1 cap PO DAILY 11/05/17 11/05/17 nitroglycerin [Nitrostat] 0.4 mg SUBLINGUAL Q5-15M PRN 11/05/17 11/05/17 Allergies Allergy/AdvReac Type Severity Reaction Status Date / Time adhesive [ADHESIVE] Allergy Mild Verified 11/05/17 17:49 aspirin [ASPIRIN] Allergy Mild Verified 11/05/17 17:49 meperidine [From DEMEROL] Allergy Mild Verified 11/05/17 17:49 metoprolol [METOPROLOL] Allergy Mild Verified 11/05/17 17:49 pioglitazone [From ACTOS] Allergy Mild Verified 11/05/17 17:49 prochlorperazine Allergy Mild Verified 11/05/17 17:49 [From COMPAZINE] rosiglitazone [From AVANDIA] Allergy Mild Verified 11/05/17 17:49 sulfamethoxazole Allergy Mild Verified 11/05/17 17:49 [From BACTRIM] trimethoprim [From BACTRIM] Allergy Mild Verified 11/05/17 17:49 venom-honey bee Allergy Mild Verified 11/05/17 17:49 [BEE VENOM (HONEY BEE)] pseudoephedrine Allergy Unknown Verified 11/05/17 17:49 [From ACTIFED] triprolidine [From ACTIFED] Allergy Unknown Verified 11/05/17 17:49 PORK Allergy Unknown Uncoded 11/05/17 17:49 iv contrast Allergy Uncoded 11/05/17 17:49 Review of Systems Constitutional Denies chills, Denies fever(s), Denies lethargy and Denies weakness Eyes Denies change in vision, Denies eye discharge, Denies irritation and Denies loss of vision ENT Ears, Nose, Mouth, and Throat: Denies change in voice, Denies neck pain and Denies sore throat Cardiovascular Denies chest pain, Denies irregular heart rhythm, Denies lightheadedness, Denies palpitations, Denies dyspnea, Denies dyspnea on exertion and Denies orthopnea Respiratory Denies cough, Denies dyspnea, Denies dyspnea on exertion and Denies wheezing Gastrointestinal Gastrointestinal: Denies abdominal pain, Denies change in bowel habits, Denies diarrhea, Denies nausea and Denies vomiting Genitourinary Denies hematuria, Denies flank pain, Denies urinary incontinence and Denies urinary urgency Musculoskeletal Denies neck pain Comments: Lower extremity edema Integumentary/Breasts Denies pruritus, Denies erythema, Denies rash and Denies wounds Neurologic Denies confusion, Denies loss of vision and Denies weakness Psychiatric Denies anxiety, Denies confusion, Denies depression, Denies homicidal ideation and Denies suicidal ideation Endocrine Denies palpitations Hematologic/Lymphatic Denies easy bruising Allergic/Immunologic Denies wheezing [facility] Medical History Hyponatremia (Acute) Atrial fibrillation (Acute) Viral gastroenteritis (Acute) Diarrhea (Acute) Laceration of right great toe (Acute) Palpitations (Acute) Surgical History No pertinent past surgical history (Acute) Social History Smoking Status: Never smoker Exam Initial Vital Signs Initial Vital Signs: Vital Signs Temperature 98.0 F 04/15/18 20:00 Pulse Rate 70 04/15/18 20:00 Respiratory Rate 20 04/15/18 20:00 Blood Pressure 127/56 L 04/15/18 20:00 Pulse Oximetry 96 04/15/18 20:00 Const General: cooperative and well developed Nutritional Appearance: well nourished Orientation: alert, awake, oriented x3 and not confused [facility] Head: normocephalic and atraumatic Ears: external ears normal Nose: external nose normal and No nasal discharge Face and sinus: face symmetric and No dry mucous membranes Mouth: oral mucosae normal and moist mucous membranes Teeth and gingiva: dentition normal Eyes General: appearance normal, both eyes and all related structures Eyelids: eyelids normal Conjunctivae: conjunctivae normal Sclera: sclerae normal Pupils: PERRL EOM: EOM intact bilaterally Neck Neck: normal visual inspection, trachea midline, No lymphadenopathy, No midline deformity and No JVD Lymphatic: No lymphedema Chest Chest: normal inspection of the chest Resp Effort & Inspection: normal respiratory effort, able to speak in complete sentences, no respiratory distress and no use of accessory muscles Auscultation: clear to auscultation bilaterally, no rales, no rhonchi and no wheezes Cardio Rate: regular rate Rhythm: regular rhythm Heart Sounds: no click, no gallops, no murmurs and no rubs Pulses: normal peripheral pulses GI Inspection: non-distended Palpation: soft, no hepatosplenomegaly, No guarding, No pulsatile mass and No tender Auscultation: normal bowel sounds Back/Spine/Pelvis Back: No CVA tenderness Cervical Spine: cervical ROM normal and No pain with cervical ROM Thoracic/Lumbar Spine: thoracic and lumbar spine normal to inspection Skin General: no rashes or lesions noted, No jaundice and No petechiae Neuro General: alert, oriented x3, gait normal and no focal motor deficits Speech: speech normal Extrem General: full ROM and no calf tenderness Other: Patient has marked, mildly pitting edema of her bilateral lower extremities. No erythema. Psych Appearance: well kempt Mental Status: mental status grossly normal Attitude: cooperative Thought Content: normal and suicidality Judgment: judgment good Course Course Narrative: Patient was fairly well-appearing at the time of her visit to the emergency department, and was alert and appropriate on my exam. She was able to give a very clear and coherent history of symptoms and other issues. She I did review her past medical records, and found that it had been noted before that the patient was not able to get down to appointments with her primary care physician very often, secondary to the driving distance. As such, the patient's electronic resources librarian, Dr. Hodan Leiva, was handling much of her care. I did recheck the patient's BMP here in the emergency department, and her sodium was found to have come up to 122. Patient's creatinine was slightly higher at 1.3 than her usual levels around 1.1, but I did not feel that this was a significant elevation, as long as it does not continue to trend up. I discussed with the patient that at this point, although she is quite hyponatremic, she is not having seizures, and her sodium is coming up with the withholding of metolazone. As such, I do feel it would be reasonable for her to go home tonight, under the supervision of her granddaughter, and be seen by her electronic resources librarian tomorrow. In fact, given all the circumstances, I feel this would be most appropriate, and she can discuss with the electronic resources librarian other options for management of her edema, and can have her sodium rechecked then. However, I have left the door open for admission, should the patient feel uncomfortable with this plan. The patient and her brother discussed the situation, and they both felt that home management was the option they preferred at this time, as patient would like to go see her electronic resources librarian tomorrow. We have discussed that she should continue to hold her medicines until further notice, and we have also discussed the usual indications for return. Orders Ordered: ED Orders 04/15/18 20:10 CMP [Comprehensive Metabolic Panel] Stat Complete Blood Count AUTO DIFF Stat PT [Prothrombin Time INR] Stat Vital Signs - 8 hr 04/15/18 20:00 04/15/18 20:32 04/15/18 20:33 Temperature 98.0 F 98.0 F Pulse Rate 70 71 71 Respiratory Rate 20 13 13 Blood Pressure 127/56 L 127/56 L Blood Pressure [Left Arm] 135/52 L Pulse Oximetry 96 96 96 04/15/18 21:00 04/15/18 22:00 Temperature Pulse Rate 70 68 Respiratory Rate 12 17 Blood Pressure Blood Pressure [Left Arm] 124/49 L 151/48 H Pulse Oximetry 100 98 MDM - Recheck/Abnormal Lab/Rx Medical Records Attestation: I reviewed the patient's medical records. Lab Data Attestation: I reviewed the patient's lab results. Result diagrams: 04/15/18 20:10 04/15/18 20:10 Lab Results 04/15/18 04/15/18 04/15/18 Range/Units 20:10 20:10 20:10 WBC 8.3 (4.5-11.0) X10^3/uL RBC 3.39 L (4.0-5.2) X10^6/uL Hgb 10.4 L (12.0-16.0) g/dL Hct 31.3 L (36-46) % MCV 92.4 (80-100) fL MCH 30.8 (26-34) PG MCHC 33.3 (30-36) % RDW 17.5 H (11.6-14.8) % Plt Count 296 (150-400) X10^3/uL Neut % (Auto) 64.2 (50-75) % Lymph % (Auto) 27.3 (25-40) % [place] % (Auto) 6.4 (3-14) % Eos % (Auto) 1.7 L (2-4) % Baso % (Auto) 0.4 (0-2) % Neut # (Auto) 5300 (3681-3663) /uL PT 14.1 H (10.1-12.7) SECONDS INR 1.2 (0.9-1.3) Sodium 122 L (137-145) mmol/L Potassium 3.7 (3.4-5.1) mmol/L Chloride 82 L (98-107) mmol/L Carbon Dioxide 26 (22-32) mmol/L BUN 51 H (7-17) mg/dL Creatinine 1.30 H (0.52-1.04) mg/dL Estimated GFR 40.2 L (>60) mL/min BUN/Creatinine Ratio 39.2 H (6-22) Glucose 181 H (80-110) mg/dL Calcium 9.2 (8.4-10.2) mg/dL Total Bilirubin 0.4 (0.2-1.3) mg/dL AST 24 (14-36) IU/L ALT 21 (9-52) IU/L Alkaline Phosphatase 55 (38-126) U/L Total Protein 7.9 (6.3-8.2) g/dL Albumin 4.5 (3.5-5.0) g/dL Globulin 3.4 (1.7-4.1) g/dL Albumin/Globulin Ratio 1.3 (1.0-2.8) Discharge Plan Departure Patient Disposition: Home Clinical Impression: Hyponatremia Discharge Date/Time: 04/15/18 23:00 Interventions: ED Discharge Assessment Last Done: 04/15/18 23:00 Instructions: DI for Hyponatremia Prescriptions: No Action lisinopril 20 MG tablet 20 mg PO QDAY Qty: 0 RF: 0 insulin glargine [Lantus U-100 Insulin] 100 UNIT/1 ML solution 30 unit SQ HS Qty: 0 RF: 0 acetaminophen 325 mg Tablet 650 mg PO Q4H MDD 4000 mg PRN (Reason: Pain, Moderate) RF: 0 magnesium oxide 420 mg Tablet 420 mg PO QPM RF: 0 clindamycin HCl 300 mg Capsule 600 mg PO .ONCE RF: 0 furosemide 80 mg Tablet 160 mg PO QAM RF: 0 tacrolimus 0.1 % Ointment 1 applic TOPICAL BID RF: 0 folic acid 1 mg Tablet 1 mg PO DAILY RF: 0 clobetasol 0.05 % Ointment 1 applic TOPICAL BID PRN (Reason: Rash) RF: 0 albuterol sulfate 90 mcg/actuation Hfa Aerosol Inhaler 2 puff Inhalation Q4H PRN (Reason: Shortness Of Breath) RF: 0 diltiazem HCl 30 mg Tablet 30 mg PO Q6H RF: 0 fluoride (sodium) 1.1 % Gel 1 applic Dental BEDTIME RF: 0 lansoprazole 30 mg Tablet,Disintegrat, Delay Rel 1 tab PO BIDAC RF: 0 chlorhexidine gluconate 0.12 % Mouthwash 15 ml PO BID RF: 0 vits A and D-white pet-lanolin [A and D (willie, pet)] Ointment 1 applic Topical DAILY PRN (Reason: Dry Skin) RF: 0 apixaban 5 mg Tablet 5 mg PO BID RF: 0 ferrous sulfate 220 mg (44 mg iron)/5 mL Elixir 7.5 ml PO QPM RF: 0 Lubricant Eye ointment 1 applic ophthalmic (eye) BEDTIME RF: 0 dextrose 40 % Gel 15 g PO PRN PRN (Reason: BS<70) RF: 0 cyclosporine 100 mg/mL Solution 5 ml PO TID RF: 0 carboxymethylcellulose sodium 0.5 % Dropperette 1 - 2 drp ophthalmic (eye) QID RF: 0 metformin 500 mg Tablet 500 mg PO BID RF: 0 cyanocobalamin (vitamin B-12) 1,000 mcg Tablet 5,000 mcg PO DAILY RF: 0 metronidazole 500 mg Tablet 500 mg PO BID RF: 0 methotrexate sodium 2.5 mg Tablet 7.5 mg PO QWEEK RF: 0 nitroglycerin [Nitrostat] 0.4 mg Tablet, Sublingual 0.4 mg SUBLINGUAL Q5-15M PRN (Reason: Chest Pain) RF: 0 multivitamin with minerals Capsule 1 cap PO DAILY RF: 0 cholecalciferol (vitamin D3) [Vitamin D3] 4,000 unit Capsule 4,000 unit PO DAILY RF: 0 coenzyme Q10 1 cap PO DAILY RF: 0 Referrals: Geri Herrera MD [Primary Care Provider] - Hodan Leiva MD [Physician] -
== END 2018-04-15 23:00 | disposition home or self-care (01) ==
PROVIDERS: Emergency Provider Emergency Medicine; Family Provider Internal Medicine; PCP Internal Medicine
DX: E87.1 Hypo-osmolality and hyponatremia (principal)
CPT/HCPCS: 36591; 80053; 85025; 85610; 99283

== ENCOUNTER → 2018-04-27 12:30 | Outpatient (CLI) | payer OTHER, SELFPAY ==
[2018-04-27 13:33] LABS: Blood Urea Nitrogen 21 mg/dL (7-17); Calcium 9.6 mg/dL (8.4-10.2); Carbon Dioxide 27 mmol/L (22-32); Chloride 106 mmol/L (98-107); Estimated Glomerular Filt Rate 54.3 mL/min (>60); Glucose 136 mg/dL (80-110); HEMOLYSIS < 15 (0-50); Potassium 4.8 mmol/L (3.4-5.1); Sodium 141 mmol/L (137-145)
== END ==
PROVIDERS: PCP Internal Medicine; Visit Provider Physician Assistant
DX: N17.9 Acute kidney failure, unspecified (principal)
CPT/HCPCS: 36415; 80048

== ENCOUNTER → 2018-05-19 13:59 | Outpatient (CLI) | payer OTHER, SELFPAY ==
[2018-05-19 15:02] LABS: Blood Urea Nitrogen 20 mg/dL (7-17); Calcium 9.5 mg/dL (8.4-10.2); Carbon Dioxide 30 mmol/L (22-32); Chloride 98 mmol/L (98-107); Estimated Glomerular Filt Rate 54.3 mL/min (>60); Glucose 200 mg/dL (80-110); HEMOLYSIS < 15 (0-50); Potassium 4.9 mmol/L (3.4-5.1); Sodium 139 mmol/L (137-145)
[2018-05-19 15:04] LABS: Add Manual Diff / Slide Review NO; Basophils Absolute Auto 0 /uL (0-100); Basophils Percent Auto 0.4 % (0-2); Eosinophils Absolute Auto 100 /uL (0-450); Eosinophils Percent Auto 2.1 % (2-4); Hematocrit 29.3 % (36-46); Hemoglobin 9.6 g/dL (12.0-16.0); Lymphocytes Absolute Auto 1800 /uL (1100-4500); Lymphocytes Percent Auto 26.3 % (25-40); Mean Corpuscular HGB Conc 32.7 % (30-36); Mean Corpuscular Hemoglobin 30.4 PG (26-34); Mean Corpuscular Volume 92.9 fL (80-100); Monocytes Absolute Auto 300 /uL (0-900); Monocytes Percent Auto 4.9 % (3-14); Neutrophils Absolute Auto 4600 /uL (1500-7000); Neutrophils Percent Auto 66.3 % (50-75); Platelet Count 259 X10^3/uL (150-400); Red Blood Cell Count 3.16 X10^6/uL (4.0-5.2); Red Cell Distribution Width 16.7 % (11.6-14.8); White Blood Cell Count 6.9 X10^3/uL (4.5-11.0)
== END ==
PROVIDERS: PCP Internal Medicine; Visit Provider Nurse Practitioner
DX: E22.2 Syndrome of inappropriate secretion of antidiuretic hormone (principal); T50.1X5 Adverse effect of loop [high-ceiling] diuretics
CPT/HCPCS: 36415; 80048; 85025

== ENCOUNTER → 2018-05-29 10:34 | Outpatient (CLI) | payer OTHER, SELFPAY ==
[2018-05-29 12:51] LABS: Blood Urea Nitrogen 20 mg/dL (7-17); Calcium 9.6 mg/dL (8.4-10.2); Carbon Dioxide 28 mmol/L (22-32); Chloride 97 mmol/L (98-107); Estimated Glomerular Filt Rate 54.3 mL/min (>60); Glucose 191 mg/dL (80-110); HEMOLYSIS < 15 (0-50); Sodium 135 mmol/L (137-145)
[2018-05-29 12:55] LABS: Potassium 5.4 mmol/L (3.4-5.1)
== END ==
PROVIDERS: PCP Internal Medicine; Visit Provider Nurse Practitioner
DX: E87.1 Hypo-osmolality and hyponatremia (principal)
CPT/HCPCS: 36415; 80048

== ENCOUNTER → 2018-06-11 14:00 | Outpatient (CLI) | payer OTHER, SELFPAY ==
[2018-06-11 16:10] LABS: Blood Urea Nitrogen 22 mg/dL (7-17); Calcium 9.6 mg/dL (8.4-10.2); Carbon Dioxide 29 mmol/L (22-32); Chloride 99 mmol/L (98-107); Estimated Glomerular Filt Rate 48.7 mL/min (>60); Glucose 179 mg/dL (80-110); HEMOLYSIS < 15 (0-50); Sodium 138 mmol/L (137-145)
[2018-06-11 16:14] LABS: Potassium 5.4 mmol/L (3.4-5.1)
== END ==
PROVIDERS: PCP Internal Medicine; Visit Provider Internal Medicine
DX: I10 Essential (primary) hypertension (principal)
CPT/HCPCS: 36415; 80048

== ENCOUNTER → 2019-04-06 13:45 | Outpatient (CLI) | payer OTHER, SELFPAY ==
--- NOTE | 2019-04-06 | DI.MG.S_ITS ---
BILATERAL DIGITAL SCREENING MAMMOGRAM 3D/2D WITH CAD: 04/06/2019 CLINICAL: Routine screening. Family history of breast cancer. Comparison is made to exams dated: 12/05/2017 mammogram, 08/09/2016 mammogram, 03/21/2015 mammogram, 01/07/2013 mammogram, and 02/13/2011 mammogram - [facility]. The tissue of both breasts is predominantly fatty. Current study was also evaluated with a Computer Aided Detection (CAD) system. There are benign vascular calcifications in both breasts. There also is a biopsy clip in the right breast. No significant masses, calcifications, or other findings are seen in either breast. There has been no significant interval change. IMPRESSION: There is no mammographic evidence of malignancy. A 1 year screening mammogram is recommended. This exam was interpreted at Station ID: [id number]. NOTE: For mammograms, a report in lay terms will be sent to the patient. Approximately 15% of breast malignancies will not be visualized mammographically. In the management of a palpable breast mass, a negative mammogram must not discourage biopsy of a clinically suspicious lesion. Electronically Signed By: Dylan lynn/erica:04/09/2019 08:33:19 letter sent: Normal Exam ACR BI-RADS Category 2: Benign Finding(s) 3342F
== END ==
PROVIDERS: PCP Internal Medicine; Visit Provider Internal Medicine
DX: Z12.31 Encounter for screening mammogram for malignant neoplasm of breast (principal); Z80.3 Family history of malignant neoplasm of breast
CPT/HCPCS: 77063; 77067

== ENCOUNTER → 2019-05-13 13:05 | Outpatient (CLI) | payer OTHER, SELFPAY ==
--- NOTE | 2019-05-13 13:11 | DI.RAD.S_ITS ---
PROCEDURE: XR WRIST RT MIN 3V INDICATIONS: R wrist injury TECHNIQUE: 4 views of the wrist were acquired. COMPARISON: None. FINDINGS: Bones: No fractures or dislocations. No suspicious bony lesions. Diffuse degenerative changes and sclerosing throughout the carpus. First MCP joint degeneration. Periarticular calcific foci adjacent to the third metacarpal head, and ulnocarpal chondrocalcinosis. IMPRESSION: No acute fracture. Chronic periarticular calcifications which could be related to gout, among other possibilities Chondrocalcinosis, and with marginal lucencies seen at the MCP joints raises the possibility of CPPD arthropathy Dictated by: Harrison Osborn M.D. on 05/13/2019 at 14:23 Approved by: Harrison Osborn M.D. on 05/13/2019 at 14:26
== END ==
PROVIDERS: PCP Internal Medicine; Referring Provider Nurse Practitioner; Visit Provider Nurse Practitioner
DX: S69.91XA Unspecified injury of right wrist, hand and finger(s), initial encounter (principal); M11.231 Other chondrocalcinosis, right wrist; X58.XXXA Exposure to other specified factors, initial encounter
CPT/HCPCS: 73110

== ENCOUNTER → 2019-06-20 16:12 | Outpatient (CLI) | payer OTHER, SELFPAY ==
[2019-06-20 17:12] LABS: Influenza A - CEPHEID Flu A NEGATIVE (NEGATIVE); Influenza B - CEPHEID Flu B NEGATIVE (NEGATIVE)
[2019-06-27 12:22] LABS: COVID19 Sendout Not Detected (Not Detected)
== END ==
PROVIDERS: PCP Internal Medicine; Visit Provider Physician Assistant
DX: R68.89 Other general symptoms and signs (principal)
CPT/HCPCS: 87502; 87635

== ENCOUNTER → 2019-09-13 15:08 | Outpatient (CLI) | payer OTHER, SELFPAY ==
[2019-09-13 16:04] LABS: Add Manual Diff / Slide Review NO; Basophils Absolute Auto 0 /uL (0-100); Basophils Percent Auto 0.5 % (0-2); Eosinophils Absolute Auto 100 /uL (0-450); Eosinophils Percent Auto 1.5 % (2-4); Hematocrit 34.8 % (36-46); Hemoglobin 11.6 g/dL (12.0-16.0); Lymphocytes Absolute Auto 3200 /uL (1100-4500); Mean Corpuscular HGB Conc 33.4 % (30-36); Mean Corpuscular Hemoglobin 28.9 PG (26-34); Mean Corpuscular Volume 86.7 fL (80-100); Monocytes Absolute Auto 800 /uL (0-900); Monocytes Percent Auto 8.3 % (3-14); Neutrophils Absolute Auto 5100 /uL (1500-7000); Neutrophils Percent Auto 54.7 % (50-75); Platelet Count 272 X10^3/uL (150-400); Red Blood Cell Count 4.02 X10^6/uL (4.0-5.2); Red Cell Distribution Width 14.3 % (11.6-14.8); White Blood Cell Count 9.3 X10^3/uL (4.5-11.0)
[2019-09-13 16:28] LABS: Creatinine Urine Random 133.1 mg/dL
[2019-09-13 16:32] LABS: Albumin 4.3 g/dL (3.5-5.0); BUN Creatinine Ratio 26.6 (6-22); Blood Urea Nitrogen 37 mg/dL (7-17); Calcium 9.8 mg/dL (8.4-10.2); Carbon Dioxide 26 mmol/L (22-32); Chloride 102 mmol/L (98-107); Estimated Glomerular Filt Rate 37.1 mL/min (>60); Glucose 157 mg/dL (80-110); HEMOLYSIS < 15 (0-50); Phosphorous 4.7 mg/dL (2.8-4.1); Potassium 5.3 mmol/L (3.4-5.1); Sodium 136 mmol/L (137-145); Uric Acid 7.6 mg/dL (2.5-6.2)
[2019-09-13 16:34] LABS: Microalbumi Creatinin Ratio Ur 22.5 ug/mg CR (<30)
[2019-09-13 16:46] LABS: Vitamin D 25 Hydroxy (D3) 39.1 ng/mL (30.0-100.0)
[2019-09-14 10:40] LABS: Parathyroid Hormone Int 78 pg/mL (15-65)
== END ==
PROVIDERS: PCP Internal Medicine; Referring Provider Internal Medicine Nephrology; Visit Provider Internal Medicine Nephrology
DX: N18.3 Chronic kidney disease, stage 3 (moderate) (principal)
CPT/HCPCS: 36415; 80069; 82043; 82306; 82570; 83970; 84550; 85025

== ENCOUNTER → 2020-02-09 09:19 | Outpatient (CLI) | payer OTHER, SELFPAY ==
[2020-02-09 16:22] LABS: COVID19 -Nasal RAPID Negative (Negative)
== END ==
PROVIDERS: PCP Internal Medicine; Referring Provider Family Medicine Sleep Medicine; Visit Provider Family Medicine Sleep Medicine
DX: Z11.59 Encounter for screening for other viral diseases (principal); G47.33 Obstructive sleep apnea (adult) (pediatric); R06.83 Snoring; E66.9 Obesity, unspecified
CPT/HCPCS: 87635; C9803

== ENCOUNTER → 2020-03-01 11:35 | Outpatient (CLI) | payer OTHER, SELFPAY ==
[2020-03-01 12:20] LABS: COVID19 -Nasal RAPID Negative (Negative)
== END ==
PROVIDERS: PCP Internal Medicine; Visit Provider Family Medicine Sleep Medicine
DX: Z11.59 Encounter for screening for other viral diseases (principal)
CPT/HCPCS: 87635; C9803

== ENCOUNTER → 2020-03-16 13:21 | Outpatient (CLI) | payer OTHER, SELFPAY ==
[2020-03-16 16:06] LABS: COVID19 -Nasal RAPID Negative (Negative)
== END ==
PROVIDERS: PCP Internal Medicine; Visit Provider Family Medicine Sleep Medicine
DX: Z01.812 Encounter for preprocedural laboratory examination (principal); Z20.828 Contact with and (suspected) exposure to other viral communicable diseases
CPT/HCPCS: 87635; C9803

== ENCOUNTER → 2020-03-23 13:28 | Outpatient (CLI) | payer OTHER, SELFPAY ==
[2020-03-23 15:45] LABS: COVID19 -Nasal RAPID Negative (Negative)
== END ==
PROVIDERS: PCP Internal Medicine; Visit Provider Nurse Practitioner Family
DX: Z01.812 Encounter for preprocedural laboratory examination (principal); Z20.828 Contact with and (suspected) exposure to other viral communicable diseases
CPT/HCPCS: 87635; C9803

== ENCOUNTER 2020-06-20 22:42 | Emergency (ER) | payer OTHER, SELFPAY ==
--- NOTE | 2020-06-20 22:48 | ED_ITS ---
HPI - Extremity Problem General Chief complaint: Extremity Problem,Nontraumatic Stated complaint: CELLULITIS RIGHT LEG EDEMA BOTH LEGS Time Seen by Provider: 06/20/20 22:48 Source: patient Mode of arrival: Ambulatory Limitations: no limitations History of Present Illness HPI Narrative: 74-year-old female nonsmoker with a history of obesity, sleep apnea, atrial fibrillation, lower extremity edema and 1 prior episode of right lower extremity cellulitis presents with a chief complaint of pain and redness of her right lower extremity over the course of the day. She denies any systemic findings such as fever, chills, nausea or vomiting. She denies any chest pain or shortness of breath. She does state that she has been taking all of her medications as directed but over the past few weeks she has started devel oping the swelling in her lower extremities again. She did not take her diuretic this evening. She called her primary care provider who instructed her to present to the walk-in clinic, which she did over in [place]. They took 1 look and sent her to the ER. She's not dizzy, weak, or lightheaded. She denies any injury. MD Complaint: extremity pain and extremity swelling Onset (ago): hour(s) Pain Consistency: constant Location: right Quality: burning and aching Radiation: none Relieving factors: nothing Exacerbating factors: walking Associated symptoms: denies other symptoms Related Data Home Medications Medication Instructions Recorded Confirmed Lubricant Eye 1 applic OPHTHALMIC (EYE) BEDTIME 09/24/17 02/01/20 acetaminophen 650 mg PO Q4H PRN MDD 4000 mg 09/24/17 04/05/20 apixaban 5 mg PO BID 09/24/17 04/05/20 clobetasol 1 applic TOPICAL BID PRN 09/24/17 04/05/20 folic acid 1 mg PO DAILY 09/24/17 04/05/20 magnesium oxide 420 mg PO QPM 09/24/17 02/01/20 vits A and D-white pet-lanolin [A 1 applic TOPICAL DAILY PRN 09/24/17 04/05/20 and D (willie, pet)] cholecalciferol (vitamin D3) 4,000 unit PO DAILY 11/05/17 04/05/20 [Vitamin D3] coenzyme Q10 1 cap PO DAILY 11/05/17 02/01/20 cyanocobalamin (vitamin B-12) 5,000 mcg PO DAILY 11/05/17 04/05/20 multivitamin with minerals 1 cap PO DAILY 11/05/17 04/05/20 nitroglycerin [Nitrostat] 0.4 mg SUBLINGUAL Q5-15M PRN 11/05/17 04/05/20 diltiazem HCl 30 mg tablet 15 mg PO BID tab 04/05/20 04/05/20 insulin glargine 100 unit/mL 23 unit SUBCUT HS #0 ml 04/05/20 04/05/20 subcutaneous solution lansoprazole 30 mg delayed 30 mg PO DAILY tab 04/05/20 04/05/20 release,disintegrating tablet lisinopril 20 mg tablet 40 mg PO QDAY #0 tab 04/05/20 04/05/20 tacrolimus 0.1 % topical ointment 1 applic TOPICAL DAILY g 04/05/20 04/05/20 torsemide 20 mg tablet 40 mg PO DAILY tab 04/05/20 04/05/20 Previous Rx's Medication Instructions Recorded doxycycline hyclate 100 mg PO BID #14 tab 06/21/20 Allergies Allergy/AdvReac Type Severity Reaction Status Date / Time adhesive [ADHESIVE] Allergy Mild Verified 06/20/19 16:23 aspirin [ASPIRIN] Allergy Mild Verified 06/20/19 16:23 meperidine [From DEMEROL] Allergy Mild Verified 06/20/19 16:23 metoprolol [METOPROLOL] Allergy Mild Verified 06/20/19 16:23 pioglitazone [From ACTOS] Allergy Mild Verified 06/20/19 16:23 prochlorperazine Allergy Mild Verified 06/20/19 16:23 [From COMPAZINE] rosiglitazone [From AVANDIA] Allergy Mild Verified 06/20/19 16:23 sulfamethoxazole Allergy Mild Verified 06/20/19 16:23 [From BACTRIM] trimethoprim [From BACTRIM] Allergy Mild Verified 06/20/19 16:23 venom-honey bee Allergy Mild Verified 06/20/19 16:23 [BEE VENOM (HONEY BEE)] pseudoephedrine Allergy Unknown Verified 06/20/19 16:23 [From ACTIFED] triprolidine [From ACTIFED] Allergy Unknown Verified 06/20/19 16:23 PORK Allergy Unknown Uncoded 11/05/17 17:49 iv contrast Allergy Uncoded 11/05/17 17:49 Review of Systems Constitutional Constitutional: Denies chills, Denies fatigue, Denies fever(s), Denies frequent falls, Denies lethargy and Denies weakness Eyes Eyes: Denies change in vision, Denies eye discharge, Denies irritation and Denies loss of vision ENT Ears, Nose, Mouth, and Throat: Denies change in voice, Denies dizziness, Denies neck pain, Denies sore throat and Denies throat swelling Cardiovascular Cardiovascular: Denies chest pain, Denies irregular heart rhythm, Reports leg edema, Denies lightheadedness, Denies palpitations, Denies dyspnea, Denies dyspnea on exertion and Denies orthopnea Respiratory Respiratory: Denies cough, Denies dyspnea, Denies dyspnea on exertion and Denies wheezing Gastrointestinal Gastrointestinal: Denies abdominal pain, Denies change in bowel habits, Denies diarrhea, Denies nausea and Denies vomiting Musculoskeletal Musculoskeletal: Denies neck pain and Denies numbness Integumentary/Breasts Skin/Breast: Denies pruritus, Reports erythema, Denies rash, Reports skin pain, Reports skin swelling and Denies wounds Neurologic Neurologic: Denies behavioral changes, Denies confusion, Denies dizziness, Denies frequent falls, Denies loss of vision, Denies numbness and Denies weakness Psychiatric Psychiatric: Denies anxiety, Denies behavioral changes, Denies confusion, Denies depression, Denies homicidal ideation and Denies suicidal ideation Endocrine Endocrine: Denies fatigue, Denies flushing and Denies palpitations Hematologic/Lymphatic Hematologic/Lymphatic: Denies easy bruising Allergic/Immunologic Allergic/Immunologic: Denies urticaria, Denies throat swelling and Denies wheez ing Patient History Medical History Atrial fibrillation Diarrhea Hyponatremia Laceration of right great toe Obesity (BMI 30-39.9) Obstructive sleep apnea Palpitations Snoring Viral gastroenteritis Surgical History No pertinent past surgical history Family History Family/Other Hypertension Diabetes mellitus Heart disease Alcohol abuse Father Loud snoring Sleep apnea Hypertension Heart disease Depression Alcohol abuse Mother Hypertension Diabetes mellitus Heart disease Depression Family/Other Loud snoring Sleep apnea Insomnia Restless leg Hypertension Diabetes mellitus Heart disease Depression Alcohol abuse Social History Smoking Status: Never smoker Smoking Status: Never smoker alcohol intake frequency: other Substance Use Type: does not use Exam Narrative Exam Narrative: GENERAL: [74] year old patient appears stated age. Well- nourished, well-developed patient, in mild distress. HEAD: Atraumatic. Normocephalic. EYES: Pupils equal round and reactive. Extraocular motions intact. No scleral icterus. No injection or drainage. ENT: Nose without bleeding, purulent drainage. Throat without erythema, t onsillar hypertrophy or exudate. Airway patent. NECK: Trachea midline. Non tender CARDIOVASCULAR: Regular rate and rhythm without murmurs, gallops, or rubs. RESPIRATORY: Clear to auscultation. Breath sounds equal bilaterally. No wheezes, rales, or rhonchi. No increased work of breathing. GASTROINTESTINAL: Abdomen soft, non-tender, nondistended. EXTREMITIES: 3+ pitting edema bilateral lower extremities. Right lower extremity with erythema, warmth and tenderness circumferentially around the lower right leg. No wounds or drainage noted BACK: Nontender without deformity or crepitance. No flank tenderness. NEURO: AOx3. SKIN: No rash or erythema of visible areas Initial Vital Signs Initial Vital Signs: Vital Signs Temperature 97.8 F 06/20/20 22:52 Pulse Rate 79 06/20/20 22:52 Respiratory Rate 22 06/20/20 22:52 Blood Pressure 190/97 H 06/20/20 22:52 Pulse Oximetry 97 06/20/20 22:52 Course Orders Ordered: ED Orders 06/20/20 22:56 XR chest 1V Stat 06/20/20 23:10 Complete Blood Count AUTO DIFF Stat Comprehensive Metabolic Panel Stat D Dimer Stat NT-proBNP (BNP-Adult 18+) Stat Troponin & CK Cardiac Panel Stat 06/20/20 23:45 Blood Culture Stat Discontinued Medications Doxycycline Hyclate (Doxycycline Hyclate 100 Mg Tablet) 100 mg PO NOW ONE Stop: 06/21/20 00:33 Last Admin: 06/21/20 00:46 Dose: 100 mg Documented by: ARIADNA Vital Signs Vital signs: Vital Signs - 8 hr 06/20/20 22:52 Temperature 97.8 F Pulse Rate 79 Respiratory Rate 22 Blood Pressure 190/97 H Pulse Oximetry 97 MDM - Extremity (Nontraumatic) Lab Data Result diagrams: 06/20/20 23:10 06/20/20 23:10 Labs: Lab Results 06/20/20 06/20/20 06/20/20 Range/Units 23:10 23:10 23:10 WBC 8.3 (4.5-11.0) X10^3/uL RBC 3.58 L (4.0-5.2) X10^6/uL Hgb 10.3 L (12.0-16.0) g/dL Hct 31.2 L (36-46) % MCV 87.3 (80-100) fL MCH 28.7 (26-34) PG MCHC 32.9 (30-36) % RDW 14.0 (11.6-14.8) % Plt Count 259 (150-400) X10^3/uL Neut % (Auto) 56.6 (50-75) % Lymph % (Auto) 34.1 (25-40) % [place] % (Auto) 7.5 (3-14) % Eos % (Auto) 1.3 L (2-4) % Baso % (Auto) 0.5 (0-2) % Neut # (Auto) 4700 (0291-5600) /uL Lymph # (Auto) 2800 (6509-1688) /uL [place] # (Auto) 600 (0-900) /uL Eos # (Auto) 100 (0-450) /uL Baso # (Auto) 0 (0-100) /uL D-Dimer 213 (<230) ng/mL Sodium 126 L (137-145) mmol/L Potassium 4.3 (3.4-5.1) mmol/L Chloride 95 L (98-107) mmol/L Carbon Dioxide 28 (22-32) mmol/L BUN 22 H (7-17) mg/dL Creatinine 1.17 H (0.52-1.04) mg/dL Estimated GFR 45.1 L (>60) mL/min BUN/Creatinine Ratio 18.8 (6-22) Glucose 180 H (80-110) mg/dL Calcium 9.3 (8.4-10.2) mg/dL Total Bilirubin 0.4 (0.2-1.3) mg/dL AST 21 (14-36) IU/L ALT 11 (<35) IU/L Alkaline Phosphatase 67 (38-126) U/L Total Creatine Kinase (30-135) U/L CK-MB (CK-2) (<2.37) ng/mL CK-MB (CK-2) Rel Index (1.5-5.0) % Troponin I (0.01-0.034) ng/mL NT-Pro-B Natriuret Pep 500 H (<450) pg/mL Total Protein 7.3 (6.3-8.2) g/dL Albumin 4.1 (3.5-5.0) g/dL Globulin 3.2 (1.7-4.1) g/dL Albumin/Globulin Ratio 1.3 (1.0-2.8) 06/20/20 Range/Units 23:10 WBC (4.5-11.0) X10^3/uL RBC (4.0-5.2) X10^6/uL Hgb (12.0-16.0) g/dL Hct (36-46) % MCV (80-100) fL MCH (26-34) PG MCHC (30-36) % RDW (11.6-14.8) % Plt Count (150-400) X10^3/uL Neut % (Auto) (50-75) % Lymph % (Auto) (25-40) % [place] % (Auto) (3-14) % Eos % (Auto) (2-4) % Baso % (Auto) (0-2) % Neut # (Auto) (3192-2294) /uL Lymph # (Auto) (7333-5242) /uL [place] # (Auto) (0-900) /uL Eos # (Auto) (0-450) /uL Baso # (Auto) (0-100) /uL D-Dimer (<230) ng/mL Sodium (137-145) mmol/L Potassium (3.4-5.1) mmol/L Chloride (98-107) mmol/L Carbon Dioxide (22-32) mmol/L BUN (7-17) mg/dL Creatinine (0.52-1.04) mg/dL Estimated GFR (>60) mL/min BUN/Creatinine Ratio (6-22) Glucose (80-110) mg/dL Calcium (8.4-10.2) mg/dL Total Bilirubin (0.2-1.3) mg/dL AST (14-36) IU/L ALT (<35) IU/L Alkaline Phosphatase (38-126) U/L Total Creatine Kinase 137 H (30-135) U/L CK-MB (CK-2) 1.71 (<2.37) ng/mL CK-MB (CK-2) Rel Index 1.2 L (1.5-5.0) % Troponin I < 0.012 (0.01-0.034) ng/mL NT-Pro-B Natriuret Pep (<450) pg/mL Total Protein (6.3-8.2) g/dL Albumin (3.5-5.0) g/dL Globulin (1.7-4.1) g/dL Albumin/Globulin Ratio (1.0-2.8) Imaging Data Chest x-ray: Attestation: I personally reviewed and interpreted this imaging study as follows: My Impression: NAP Radiologist's Impression: No acute cardiopulmonary process MDM Narrative Medical decision making narrative: Patient with increased lower extremity swelling over the past few weeks in the absence of any fatigue, dizziness, lightheadedness, shortness of breath or supplemental oxygen requirements. Her renal function is actually slightly improved over prior evaluations here. She has known chronic kidney disease and current GFR is in the mid 40s. Also considered acute CHF, there are no findings on chest x-ray or supplemental o xygen requirements. Patient has had pain and redness and a small area of her right lower extremity and cellulitis as well as DVT are considered. Patient is on apixaban and has a D-dimer which is negative when age corrected making clot unlikely. Her story and exam are most consistent with infection, her labs and vitals are reassuring and there is no evidence of sepsis. Finally she is noted to have sodium of 126. She's routinely in the low 130s and upper 120s, and was admitted at 122 a few years ago. Her exam is most consistent with hypervolemic hyponatremia. She is not dizzy, weak or lightheaded. She has no neurologic symptoms such is dizziness, numbness or tingling and demonstrates no obvious symptoms related to her sodium. We discussed fluid restriction, use of chronic meds, close follow up and return precautions. She's had her questions answered to her apparent satisfaction Discharge Plan Departure Patient Disposition: Home Clinical Impression: Acute hyponatremia, Cellulitis of leg, right Instructions: DI for Cellulitis -- Adult Activity Restrictions/Additional Instructions: *You have been diagnosed with [bilateral lower extremity edema, mild cellulitis right lower extremity, mild low sodium. No evidence of blood clot or findings to suggest admission is required at this time] *What to do: *Take medications as directed: Antibiotics sent to [facility] at your request *Follow up with your primary care provider in 2-3 days, call for an appointment. Let them know you were seen in the Emergency Department and that we ask that you be seen in follow up *Your sodium is low, but not critically low and you have no symptoms obviously linked to this. Please limit fluid intake to 1500mL daily until follow up. *Return to ER if you should have any new, worsening or concerning symptoms, such as [fever greater than 101 F, shaking chills, chest pain, shortness of breath, persistent vomiting, weakness or other bothersome symptoms] Prescriptions: New doxycycline hyclate 100 mg tablet 100 mg PO BID Qty: 14 RF: 0 No Action Lantus U-100 Insulin 100 unit/mL solution 23 unit SUBCUT HS Qty: 0 RF: 0 lisinopril 20 mg tablet 40 mg PO QDAY Qty: 0 RF: 0 acetaminophen 325 mg Tablet 650 mg PO Q4H MDD 4000 mg PRN (Reason: Pain, Moderate) RF: 0 magnesium oxide 420 mg Tablet 420 mg PO QPM RF: 0 folic acid 1 mg Tablet 1 mg PO DAILY RF: 0 clobetasol 0.05 % Ointment 1 applic TOPICAL BID PRN (Reason: Rash) RF: 0 vits A and D-white pet-lanolin [A and D (willie, pet)] Ointment 1 applic Topical DAILY PRN (Reason: Dry Skin) RF: 0 apixaban 5 mg Tablet 5 mg PO BID RF: 0 Lubricant Eye ointment 1 applic ophthalmic (eye) BEDTIME RF: 0 diltiazem HCl 30 mg tablet 15 mg PO BID RF: 0 lansoprazole 30 mg tablet,disintegrat, delay rel 30 mg PO DAILY RF: 0 tacrolimus 0.1 % ointment 1 applic TOPICAL DAILY RF: 0 cyanocobalamin (vitamin B-12) 1,000 mcg Tablet 5,000 mcg PO DAILY RF: 0 nitroglycerin [Nitrostat] 0.4 mg Tablet, Sublingual 0.4 mg SUBLINGUAL Q5-15M PRN (Reason: Chest Pain) RF: 0 multivitamin with minerals Capsule 1 cap PO DAILY RF: 0 cholecalciferol (vitamin D3) [Vitamin D3] 4,000 unit Capsule 4,000 unit PO DAILY RF: 0 coenzyme Q10 1 cap PO DAILY RF: 0 torsemide 20 mg tablet 40 mg PO DAILY RF: 0 Referrals: Geri Herrera MD [Primary Care Provider] -
[2020-06-20 22:52] VITALS: BP 190/97; PULSE 79; RESP 22; TEMP 36.6; O2SAT 97
--- NOTE | 2020-06-20 22:56 | DI.RAD.S_ITS ---
PROCEDURE: XR CHEST 1V INDICATIONS: fall, trauma, preop TECHNIQUE: One view of the chest was acquired. COMPARISON: [facility], CR, XR CHEST 1V, 11/05/2017, 14:20. FINDINGS: Surgical changes and devices: None. Lungs and pleura: Lungs are clear. No pleural effusions or pneumothorax. Mediastinum: Mediastinal contours appear normal. Heart size is normal. Bones and chest wall: No suspicious bony lesions. Overlying soft tissues appear unremarkable. IMPRESSION: No acute disease. Dictated by: Harrison Osborn M.D. on 06/21/2020 at 8:52 Approved by: Harrison Osborn M.D. on 06/21/2020 at 9:07
[2020-06-20 23:41] LABS: Add Manual Diff / Slide Review NO; Basophils Absolute Auto 0 /uL (0-100); Basophils Percent Auto 0.5 % (0-2); Eosinophils Absolute Auto 100 /uL (0-450); Eosinophils Percent Auto 1.3 % (2-4); Hematocrit 31.2 % (36-46); Hemoglobin 10.3 g/dL (12.0-16.0); Lymphocytes Absolute Auto 2800 /uL (1100-4500); Lymphocytes Percent Auto 34.1 % (25-40); Mean Corpuscular HGB Conc 32.9 % (30-36); Mean Corpuscular Hemoglobin 28.7 PG (26-34); Mean Corpuscular Volume 87.3 fL (80-100); Monocytes Absolute Auto 600 /uL (0-900); Monocytes Percent Auto 7.5 % (3-14); Neutrophils Absolute Auto 4700 /uL (1500-7000); Neutrophils Percent Auto 56.6 % (50-75); Platelet Count 259 X10^3/uL (150-400); Red Blood Cell Count 3.58 X10^6/uL (4.0-5.2); White Blood Cell Count 8.3 X10^3/uL (4.5-11.0)
[2020-06-20 23:50] LABS: Creatine Kinase 137 U/L (30-135)
[2020-06-20 23:51] LABS: Alanine Aminotransferase 11 IU/L (<35); Albumin 4.1 g/dL (3.5-5.0); Albumin Globulin Ratio 1.3 (1.0-2.8); Alkaline Phosphatase 67 U/L (38-126); Aspartate Aminotransferase 21 IU/L (14-36); BUN Creatinine Ratio 18.8 (6-22); Bilirubin Total 0.4 mg/dL (0.2-1.3); Blood Urea Nitrogen 22 mg/dL (7-17); Calcium 9.3 mg/dL (8.4-10.2); Carbon Dioxide 28 mmol/L (22-32); Chloride 95 mmol/L (98-107); Estimated Glomerular Filt Rate 45.1 mL/min (>60); Globulin 3.2 g/dL (1.7-4.1); Glucose 180 mg/dL (80-110); HEMOLYSIS < 15 (0-50); Potassium 4.3 mmol/L (3.4-5.1); Sodium 126 mmol/L (137-145); Total Protein 7.3 g/dL (6.3-8.2)
[2020-06-21] LABS: NT-proBNP (BNP-Adult 18+) 500 pg/mL (<450)
[2020-06-21 00:03] LABS: Troponin I < 0.012 ng/mL (0.01-0.034)
[2020-06-21 00:05] LABS: CKMB % Relative Index 1.2 % (1.5-5.0); Creatine Kinase MB 1.71 ng/mL (<2.37)
[2020-06-21 00:31] LABS: D Dimer 213 ng/mL (<230)
[2020-06-21] MEDS: DOXYCYCLINE HYCLATE 100 MG TABLET PO (00:46)
[2020-06-21 00:59] VITALS: BP 184/80; PULSE 76; RESP 20; O2SAT 97
[2020-06-21 01:13] LABS: Bacteria Urine Occasional (0-1); Culture Indicated Urine Specimen Cultured; RBC Urine 0-1/HPF (0-5/HPF); WBC Urine 1-5/HPF (0-5/HPF)
== END 2020-06-21 01:00 | disposition home or self-care (01) ==
PROVIDERS: Emergency Provider Emergency Medicine; PCP Internal Medicine
DX: E87.1 Hypo-osmolality and hyponatremia (principal); L03.115 Cellulitis of right lower limb
CPT/HCPCS: 36415; 71045; 80053; 81003; 81015; 82550; 82553; 83880; 84484; 85025; 85379; 87040; 87086; 99283; 99284

== ENCOUNTER → 2021-05-07 15:48 | Outpatient (CLI) | payer OTHER, SELFPAY ==
--- NOTE | 2021-05-07 15:51 | DI.MG.S_ITS ---
BILATERAL DIGITAL SCREENING MAMMOGRAM 3D/2D WITH CAD: 05/07/2021 CLINICAL: Routine screening. Comparison is made to exams dated: 12/05/2017 mammogram, 08/09/2016 mammogram, and 03/21/2015 mammogram - [facility]. The tissue of both breasts is predominantly fatty. Current study was also evaluated with a Computer Aided Detection (CAD) system. There are benign vascular calcifications in both breasts. There also is a biopsy clip in the right breast. No significant masses, calcifications, or other findings are seen in either breast. There has been no significant interval change. IMPRESSION: BENIGN There is no mammographic evidence of malignancy. A 1 year screening mammogram is recommended. This exam was interpreted at Station ID: [id number]. NOTE: For mammograms, a report in lay terms will be sent to the patient. Approximately 15% of breast malignancies will not be visualized mammographically. In the management of a palpable breast mass, a negative mammogram must not discourage biopsy of a clinically suspicious lesion. Electronically Signed By: Jony morris/erica:05/08/2021 10:21:02 letter sent: Normal Exam ACR BI-RADS Category 2: Benign Finding(s) 3342F
== END ==
PROVIDERS: PCP Internal Medicine; Referring Provider Internal Medicine; Visit Provider Internal Medicine
DX: Z12.31 Encounter for screening mammogram for malignant neoplasm of breast (principal)
CPT/HCPCS: 77063; 77067

== ENCOUNTER 2022-02-06 22:02 | Emergency (ER) | payer OTHER, SELFPAY ==
[2022-02-06 22:15] VITALS: BP 196/77; PULSE 65; RESP 18; TEMP 36.6; O2SAT 99; BMI 38.9
[2022-02-06 23:19] VITALS: PULSE 62; O2SAT 98
--- NOTE | 2022-02-07 00:29 | ED.SKABFB ---
HPI - Skin/Abscess/Foreign Bdy General Chief complaint: Skin/Abscess/Foreign Body Stated complaint: Poss. cellulitis bilat Time Seen by Provider: 02/07/22 00:29 Source: patient Mode of arrival: Ambulatory Limitations: no limitations History of Present Illness HPI narrative: Patient is a 76-year-old female history of obesity, sleep apnea, atrial fibrillation on Eliquis, lower extremity edema and swelling presents today with this pain and swelling in her legs. She says the right leg is worse than the left she is not sure exactly when it started but the pain is becoming much worse. She denies any fever or chills. A looks is though she was seen here in 2020 for the same. She denies any chest pain shortness of breath is or any other symptoms. Related Data Home Medications Medication Instructions Recorded Confirmed Lubricant Eye 1 applic ophthalmic (eye) BEDTIME 09/24/17 02/01/20 acetaminophen 325 mg tablet 650 mg PO Q4H PRN Pain, Moderate 09/24/17 04/05/20 apixaban 5 mg tablet 5 mg PO BID 09/24/17 04/05/20 clobetasol 0.05 % topical ointment 1 applic topical BID PRN Rash 09/24/17 04/05/20 folic acid 1 mg tablet 1 mg PO DAILY 09/24/17 04/05/20 magnesium oxide 420 mg tablet 420 mg PO QPM 09/24/17 02/01/20 vitamins A and D-white 1 applic topical DAILY PRN Dry Skin 09/24/17 04/05/20 petrolatum-lanolin topical ointment (A and D (willie, pet) topical ointment) cholecalciferol (vitamin D3) 100 4,000 unit PO DAILY 11/05/17 04/05/20 mcg (4,000 unit) capsule (Vitamin D3) coenzyme Q10 1 cap PO DAILY 11/05/17 02/01/20 cyanocobalamin (vitamin B-12) 5,000 mcg PO DAILY 11/05/17 04/05/20 1,000 mcg tablet multivitamin with minerals 1 cap PO DAILY 11/05/17 04/05/20 nitroglycerin 0.4 mg sublingual 0.4 mg sublingual Q5-15M PRN Chest 11/05/17 04/05/20 tablet (Nitrostat) Pain diltiazem HCl 30 mg tablet 15 mg PO BID 04/05/20 04/05/20 insulin glargine 100 unit/mL 23 unit SUBCUT HS #0 mL 04/05/20 04/05/20 subcutaneous solution (Lantus U-100 Insulin) lansoprazole 30 mg delayed 30 mg PO DAILY 04/05/20 04/05/20 release,disintegrating tablet lisinopril 20 mg tablet 40 mg PO QDAY #0 tabs 04/05/20 04/05/20 tacrolimus 0.1 % topical ointment 1 applic topical DAILY 04/05/20 04/05/20 torsemide 20 mg tablet 40 mg PO DAILY 04/05/20 04/05/20 Previous Rx's Medication Instructions Recorded doxycycline hyclate 100 mg tablet 100 mg PO BID #14 tabs 06/21/20 doxycycline hyclate 100 mg capsule 100 mg PO BID #20 caps 02/07/22 Allergies Allergy/AdvReac Type Severity Reaction Status Date / Time adhesive [ADHESIVE] Allergy Mild Verified 06/20/19 16:23 aspirin [ASPIRIN] Allergy Mild Verified 06/20/19 16:23 meperidine [From DEMEROL] Allergy Mild Verified 06/20/19 16:23 metoprolol [METOPROLOL] Allergy Mild Verified 06/20/19 16:23 pioglitazone [From ACTOS] Allergy Mild Verified 06/20/19 16:23 prochlorperazine Allergy Mild Verified 06/20/19 16:23 [From COMPAZINE] rosiglitazone [From AVANDIA] Allergy Mild Verified 06/20/19 16:23 sulfamethoxazole Allergy Mild Verified 06/20/19 16:23 [From BACTRIM] trimethoprim [From BACTRIM] Allergy Mild Verified 06/20/19 16:23 venom-honey bee Allergy Mild Verified 06/20/19 16:23 [BEE VENOM (HONEY BEE)] pseudoephedrine Allergy Unknown Verified 06/20/19 16:23 [From ACTIFED] triprolidine [From ACTIFED] Allergy Unknown Verified 06/20/19 16:23 PORK Allergy Unknown Uncoded 11/05/17 17:49 iv contrast Allergy Uncoded 11/05/17 17:49 Review of Systems Review of Systems Narrative: GENERAL: Denies chills, fatigue, malaise, fever, sweats, travel HEENT: Denies sinus pain, ear pain, sore throat, difficulty swallowing, neck pain RESPIRATORY: Denies dyspnea, cough, wheezing, hemoptysis, sputum. CARDIOVASCULAR: Denies chest pain, palpitations, orthopnea, edema GASTROINTESTINAL: Denies nausea, vomiting, abdominal pain, diarrhea, constipation, melena. : Denies dysuria, frequency, incontinence, hematuria, urinary retention, flank pain. MUSCULOSKELETAL: Denies weakness, joint pain, or bony pain SKIN: See HPI NEUROLOGIC: Denies weakness, dizziness, headache, numbness, change in speech, confusion PSYCHIATRIC: No concerning psychosocial issues. 12 point review of systems is negative except for those stated above and HPI Patient History Medical History Atrial fibrillation Diarrhea Hyponatremia Laceration of right great toe Obesity (BMI 30-39.9) Obstructive sleep apnea Palpitations Snoring Viral gastroenteritis Surgical History No pertinent past surgical history Family History Family/Other Hypertension Diabetes mellitus Heart disease Alcohol abuse Father Loud snoring Sleep apnea Hypertension Heart disease Depression Alcohol abuse Mother Hypertension Diabetes mellitus Heart disease Depression Family/Other Loud snoring Sleep apnea Insomnia Restless leg Hypertension Diabetes mellitus Heart disease Depression Alcohol abuse Social History Smoking Status: Never smoker Smoking Status: Never smoker alcohol intake frequency: other Substance Use Type: does not use Exam Initial Vital Signs Initial Vital Signs: Vital Signs Temperature 98 F 02/06/22 22:15 Pulse Rate 65 02/06/22 22:15 Respiratory Rate 18 02/06/22 22:15 Blood Pressure 196/77 H 02/06/22 22:15 Pulse Oximetry 99 02/06/22 22:15 Oxygen Delivery Method 02/06/22 22:15 GENERAL: Alert well-appearing very pleasant 76-year-old female and in no acute distress. HEENT: Head atraumatic,EOMI, pupils reactive, face symmetric, moist mucous membranes CARDIOVASCULAR: Regular rate and rhythm without murmurs, rubs or gallops. RESPIRATORY: Breath sounds equal bilaterally, no wheezes rales or rhonchi. ABDOMEN: Soft, nontender. Normoactive bowel sounds all 4 quadrants. No guarding or rebound. : No CVA tenderness EXTREMITIES: Normal range of motion, no clubbing or edema. Neurovascularly intact Bilateral lower extremity swelling NEUROLOGICAL: Alert and oriented x4. SKIN: Erythema right lower extremity left just above the ankle blanchable. Left leg last erythema but still there. Course Orders Ordered: ED Orders 02/07/22 01:05 CBC Auto Diff [Complete Blood Count AUTO DIFF] Stat CMP [Comprehensive Metabolic Panel] Stat Procalcitonin Stat Discontinued Medications Ceftriaxone Sodium 2,000 mg/ (Sodium Chloride) 100 mls @ 200 mls/hr IV NOW ONE Stop: 02/07/22 00:39 Last Infusion: 02/07/22 01:44 Dose: 0 mls/hr Documented By: Admin: 02/07/22 01:11 Dose: 200 mls/hr Documented By: ANDI Vital Signs Vital signs: Vital Signs - 8 hr 02/06/22 22:15 02/06/22 23:19 02/07/22 02:13 Temperature 98 F Pulse Rate 65 62 74 Respiratory Rate 18 Blood Pressure 196/77 H Pulse Oximetry 99 98 98 Oxygen Delivery Method Room Air 02/07/22 02:14 02/07/22 02:14 Temperature Pulse Rate 74 Respiratory Rate Blood Pressure 160/70 H Pulse Oximetry 98 Oxygen Delivery Method MDM - Skin/Abscess/Foreign Bdy Lab Data Result diagrams: 02/07/22 01:05 02/07/22 01:05 Labs: Lab Results 02/07/22 02/07/22 02/07/22 Range/Units 01:05 01:05 01:05 WBC 10.8 (4.5-11.0) X10^3/uL RBC 3.99 L (4.0-5.2) X10^6/uL Hgb 11.4 L (12.0-16.0) g/dL Hct 35.0 L (36-46) % MCV 87.5 (80-100) fL MCH 28.5 (26-34) PG MCHC 32.6 (30-36) % RDW 14.7 (11.6-14.8) % Plt Count 264 (150-400) X10^3/uL Neut % (Auto) 56.1 (50-75) % Lymph % (Auto) 35.0 (25-40) % [place] % (Auto) 7.3 (3-14) % Eos % (Auto) 1.4 L (2-4) % Baso % (Auto) 0.2 (0-2) % Neut # (Auto) 6000 (0481-1109) /uL Lymph # (Auto) 3800 (9498-0817) /uL [place] # (Auto) 800 (0-900) /uL Eos # (Auto) 200 (0-450) /uL Baso # (Auto) 0 (0-100) /uL Sodium 137 (137-145) mmol/L Potassium 4.2 (3.4-5.1) mmol/L Chloride 102 (98-107) mmol/L Carbon Dioxide 26 (22-32) mmol/L BUN 21 H (7-17) mg/dL Creatinine 1.14 H (0.52-1.04) mg/dL Estimated GFR 50 L (>60) mL/min BUN/Creatinine Ratio 18.4 (6-22) Glucose 121 H (80-110) mg/dL Calcium 9.3 (8.4-10.2) mg/dL Total Bilirubin 0.5 (0.2-1.3) mg/dL AST 22 (14-36) IU/L ALT 18 (<35) IU/L Alkaline Phosphatase 74 (38-126) U/L Total Protein 8.0 (6.3-8.2) g/dL Albumin 4.1 (3.5-5.0) g/dL Globulin 3.9 (1.7-4.1) g/dL Albumin/Globulin Ratio 1.1 (1.0-2.8) Procalcitonin 0.08 (<0.5) ng/mL MDM Narrative Medical decision making narrative: The patient is here for worsening redness or lower extremities. She is afebrile not tachycardic vitals are stable no signs of sepsis. She does look like there is quite a bit of erythema in the right lower leg she is given 1 dose of Rocephin here in the ER. Will discharge her home at this time no need for admission criteria. She is erythema bilaterally just around her ankles more on right than left. This is highly unlikely to be DVT, although it was considered. Discharge Plan Departure Patient Disposition: Home Clinical Impression: Cellulitis Activity Restrictions/Additional Instructions: *You have been diagnosed with cellulitis of lower extremity *What to do: At this time your blood work looks good. Continue to monitor *Continue to take medications as directed Doxycycline 100 mg twice a day for 10 days -- SENT TO [facility] *Follow up with your primary care provider in 2-3 days or call [phone] *Return to ER if you should have increasing redness pain swelling or any new, worsening or concerning symptoms Prescriptions: New doxycycline hyclate 100 mg capsule 100 mg PO BID Qty: 20 0RF No Action Lantus U-100 Insulin 100 unit/mL solution 23 unit SUBCUT HS Qty: 0 lisinopril 20 mg tablet 40 mg PO QDAY Qty: 0 acetaminophen 325 mg Tablet 650 mg PO Q4H MDD 4000 mg PRN (Reason: Pain, Moderate) magnesium oxide 420 mg Tablet 420 mg PO QPM folic acid 1 mg Tablet 1 mg PO DAILY clobetasol 0.05 % Ointment 1 applic TOPICAL BID PRN (Reason: Rash) vits A and D-white pet-lanolin [A and D (willie, pet)] Ointment 1 applic Topical DAILY PRN (Reason: Dry Skin) apixaban 5 mg Tablet 5 mg PO BID Lubricant Eye ointment 1 applic ophthalmic (eye) BEDTIME diltiazem HCl 30 mg tablet 15 mg PO BID lansoprazole 30 mg tablet,disintegrat, delay rel 30 mg PO DAILY tacrolimus 0.1 % ointment 1 applic TOPICAL DAILY doxycycline hyclate 100 mg tablet 100 mg PO BID Qty: 14 0RF cyanocobalamin (vitamin B-12) 1,000 mcg Tablet 5,000 mcg PO DAILY nitroglycerin [Nitrostat] 0.4 mg Tablet, Sublingual 0.4 mg SUBLINGUAL Q5-15M PRN (Reason: Chest Pain) multivitamin with minerals Capsule 1 cap PO DAILY cholecalciferol (vitamin D3) [Vitamin D3] 4,000 unit Capsule 4,000 unit PO DAILY coenzyme Q10 1 cap PO DAILY torsemide 20 mg tablet 40 mg PO DAILY Referrals: Geri Herrera MD [Primary Care Provider] - Visit Report Forms: Patient Portal/API
[2022-02-07] MEDS: cefTRIAXone 2,000 MG in SODIUM CHLORIDE 0.9% 100 ML 200 MG IV (01:11)
[2022-02-07 01:29] LABS: Add Manual Diff / Slide Review NO; Basophils Absolute Auto 0 /uL (0-100); Basophils Percent Auto 0.2 % (0-2); Eosinophils Absolute Auto 200 /uL (0-450); Eosinophils Percent Auto 1.4 % (2-4); Hemoglobin 11.4 g/dL (12.0-16.0); Lymphocytes Absolute Auto 3800 /uL (1100-4500); Mean Corpuscular HGB Conc 32.6 % (30-36); Mean Corpuscular Hemoglobin 28.5 PG (26-34); Mean Corpuscular Volume 87.5 fL (80-100); Monocytes Absolute Auto 800 /uL (0-900); Monocytes Percent Auto 7.3 % (3-14); Neutrophils Absolute Auto 6000 /uL (1500-7000); Neutrophils Percent Auto 56.1 % (50-75); Platelet Count 264 X10^3/uL (150-400); Red Blood Cell Count 3.99 X10^6/uL (4.0-5.2); Red Cell Distribution Width 14.7 % (11.6-14.8); White Blood Cell Count 10.8 X10^3/uL (4.5-11.0)
[2022-02-07 01:38] LABS: Alanine Aminotransferase 18 IU/L (<35); Albumin 4.1 g/dL (3.5-5.0); Albumin Globulin Ratio 1.1 (1.0-2.8); Alkaline Phosphatase 74 U/L (38-126); Aspartate Aminotransferase 22 IU/L (14-36); BUN Creatinine Ratio 18.4 (6-22); Bilirubin Total 0.5 mg/dL (0.2-1.3); Blood Urea Nitrogen 21 mg/dL (7-17); Calcium 9.3 mg/dL (8.4-10.2); Carbon Dioxide 26 mmol/L (22-32); Chloride 102 mmol/L (98-107); Estimated Glomerular Filt Rate 50 mL/min (>60); Globulin 3.9 g/dL (1.7-4.1); Glucose 121 mg/dL (80-110); HEMOLYSIS 19 (0-50); Potassium 4.2 mmol/L (3.4-5.1); Sodium 137 mmol/L (137-145)
[2022-02-07 01:55] LABS: Procalcitonin 0.08 ng/mL (<0.5)
[2022-02-07 02:13] VITALS: PULSE 74; O2SAT 98
[2022-02-07 02:14] VITALS: BP 160/70; PULSE 74; O2SAT 98
== END 2022-02-07 02:28 | disposition home or self-care (01) ==
PROVIDERS: Emergency Provider Emergency Medicine; PCP Internal Medicine
DX: L03.115 Cellulitis of right lower limb (principal); Z79.899 Other long term (current) drug therapy
CPT/HCPCS: 36415; 80053; 84145; 85025; 96365; 99284; J0696

== ENCOUNTER 2022-03-13 17:44 | Emergency (ER) | payer OTHER, SELFPAY ==
[2022-03-13 17:52] VITALS: BP 180/77; PULSE 69; RESP 15; TEMP 36.6; O2SAT 98; BMI 39.3
--- NOTE | 2022-03-13 18:00 | DI.RAD.S_ITS ---
PROCEDURE: XR WRIST LT MIN 3V INDICATIONS: wrist injury TECHNIQUE: 4 views of the wrist were acquired. COMPARISON: [facility], CR, XR WRIST RT MIN 3V, 05/13/2019, 13:06. FINDINGS: Bones: No fractures or dislocations. No suspicious bony lesions. Generalized degenerative changes are seen, which are worst involving the 1st carpometacarpal joint. Scaphoid view: No navicular fractures are seen. Soft tissues: No suspicious soft tissue calcifications. IMPRESSION: Negative for acute fracture by plain film. If there is snuffbox tenderness (or other clinical suspicion for a fracture not seen on these images) then a repeat examination would be recommended in 10 to 14 days, following splinting. Dictated by: Butch Alberts M.D. on 03/13/2022 at 17:46 Approved by: Butch Alberts M.D. on 03/13/2022 at 17:47
--- NOTE | 2022-03-13 19:51 | ED.SKABFB ---
HPI - Skin/Abscess/Foreign Bdy General Chief complaint: Skin/Abscess/Foreign Body Stated complaint: rt arm pain, now cellulitis starting Time Seen by Provider: 03/13/22 19:51 Source: patient Mode of arrival: Ambulatory Limitations: no limitations History of Present Illness HPI narrative: 76-year-old woman with history of chronic atrial fibrillation anticoagulated on apixaban, chronic pain taking narcotics 4 times a day on a scheduled basis, hypertension lower extremity edema and diabetes who presents with left wrist injury. She was about to take her dog out and the dog pulled on the leash pulling on her left wrist causing significant pain on the volar aspect. Neurovascularly intact however over the last 24 hours the pain has increased and she is developed some redness on the volar aspect that she is concerned as infection. She is having no fevers, cough or chills. No recent palpitations, vomiting nausea, abdominal pain or diarrhea. No headaches reported. Related Data Home Medications Medication Instructions Recorded Confirmed Lubricant Eye 1 applic ophthalmic (eye) BEDTIME 09/24/17 02/01/20 acetaminophen 325 mg tablet 650 mg PO Q4H PRN Pain, Moderate 09/24/17 04/05/20 apixaban 5 mg tablet 5 mg PO BID 09/24/17 04/05/20 clobetasol 0.05 % topical ointment 1 applic topical BID PRN Rash 09/24/17 04/05/20 folic acid 1 mg tablet 1 mg PO DAILY 09/24/17 04/05/20 magnesium oxide 420 mg tablet 420 mg PO QPM 09/24/17 02/01/20 vitamins A and D-white 1 applic topical DAILY PRN Dry Skin 09/24/17 04/05/20 petrolatum-lanolin topical ointment (A and D (willie, pet) topical ointment) cholecalciferol (vitamin D3) 100 4,000 unit PO DAILY 11/05/17 04/05/20 mcg (4,000 unit) capsule (Vitamin D3) coenzyme Q10 1 cap PO DAILY 11/05/17 02/01/20 cyanocobalamin (vitamin B-12) 5,000 mcg PO DAILY 11/05/17 04/05/20 1,000 mcg tablet multivitamin with minerals 1 cap PO DAILY 11/05/17 04/05/20 nitroglycerin 0.4 mg sublingual 0.4 mg sublingual Q5-15M PRN Chest 11/05/17 04/05/20 tablet (Nitrostat) Pain diltiazem HCl 30 mg tablet 15 mg PO BID 04/05/20 04/05/20 insulin glargine 100 unit/mL 23 unit SUBCUT HS #0 mL 04/05/20 04/05/20 subcutaneous solution (Lantus U-100 Insulin) lansoprazole 30 mg delayed 30 mg PO DAILY 04/05/20 04/05/20 release,disintegrating tablet lisinopril 20 mg tablet 40 mg PO QDAY #0 tabs 04/05/20 04/05/20 tacrolimus 0.1 % topical ointment 1 applic topical DAILY 04/05/20 04/05/20 torsemide 20 mg tablet 40 mg PO DAILY 04/05/20 04/05/20 Previous Rx's Medication Instructions Recorded doxycycline hyclate 100 mg tablet 100 mg PO BID #14 tabs 06/21/20 doxycycline hyclate 100 mg capsule 100 mg PO BID #20 caps 02/07/22 hydrocodone 7.5 mg-acetaminophen 2 tab PO Q6H PRN pain #12 tabs 03/13/22 325 mg tablet Allergies Allergy/AdvReac Type Severity Reaction Status Date / Time adhesive [ADHESIVE] Allergy Mild Verified 03/13/22 17:57 aspirin [ASPIRIN] Allergy Mild Verified 03/13/22 17:57 meperidine [From DEMEROL] Allergy Mild Verified 03/13/22 17:57 metoprolol [METOPROLOL] Allergy Mild Verified 03/13/22 17:57 pioglitazone [From ACTOS] Allergy Mild Verified 03/13/22 17:57 prochlorperazine Allergy Mild Verified 03/13/22 17:57 [From COMPAZINE] rosiglitazone [From AVANDIA] Allergy Mild Verified 03/13/22 17:57 sulfamethoxazole Allergy Mild Verified 03/13/22 17:57 [From BACTRIM] trimethoprim [From BACTRIM] Allergy Mild Verified 03/13/22 17:57 venom-honey bee Allergy Mild Verified 03/13/22 17:57 [BEE VENOM (HONEY BEE)] pseudoephedrine Allergy Unknown Verified 03/13/22 17:57 [From ACTIFED] triprolidine [From ACTIFED] Allergy Unknown Verified 03/13/22 17:57 PORK Allergy Unknown Uncoded 11/05/17 17:49 iv contrast Allergy Uncoded 11/05/17 17:49 Review of Systems Review of Systems Narrative: Remainder of complete review of systems is otherwise unremarkable except for that included in the HPI. Patient History Medical History Atrial fibrillation Diarrhea Hyponatremia Laceration of right great toe Obesity (BMI 30-39.9) Obstructive sleep apnea Palpitations Snoring Viral gastroenteritis Surgical History No pertinent past surgical history Family History Family/Other Hypertension Diabetes mellitus Heart disease Alcohol abuse Father Loud snoring Sleep apnea Hypertension Heart disease Depression Alcohol abuse Mother Hypertension Diabetes mellitus Heart disease Depression Family/Other Loud snoring Sleep apnea Insomnia Restless leg Hypertension Diabetes mellitus Heart disease Depression Alcohol abuse Social History Smoking Status: Never smoker Smoking Status: Never smoker alcohol intake frequency: other Substance Use Type: does not use Exam Initial Vital Signs Initial Vital Signs: Vital Signs Temperature 97.9 F 03/13/22 17:52 Pulse Rate 69 03/13/22 17:52 Respiratory Rate 15 03/13/22 17:52 Blood Pressure 180/77 H 03/13/22 17:52 Pulse Oximetry 98 03/13/22 17:52 Oxygen Delivery Method 03/13/22 17:52 General: Alert appropriate in no acute distress Respiratory: Able to speak in full sentences, no obvious respiratory distress Skin: No obvious rashes, warm and dry Neurologic: Grossly intact no obvious asymmetries or abnormalities Psych: appropriate insight and affect, cooperative Extremity: Left wrist with moderate amount of bruising on the volar aspect with the subdermal blood beginning to track up her arm which is the redness of which she was concerned. Significant tenderness over the bruised area but no particularly tender bony tenderness. Wrist range of motion is limited secondary to the bruising and volar tenderness. She is neurovascularly intact. Procedures Orthopedic Splinting/Casting Left wrist: Time of procedure: 20:24 Side: left Upper Extremity Injury Location: wrist Additional Comments: Manufactured universal wrist splint, left is applied. Some adjustment was required as her forearm is significantly larger than her wrist. Once the splint was applied she was neurovascularly intact and pain was significantly improved. Course Orders Ordered: ED Orders 03/13/22 18:00 XR wrist LT min 3V Stat Discontinued Medications Hydrocodone Bitart/Acetaminophen (Hydrocodone/Acet 5/325 Tablet) 2 tab PO NOW ONE Stop: 03/13/22 20:21 Vital Signs Vital signs: Vital Signs - 8 hr 03/13/22 17:52 Temperature 97.9 F Pulse Rate 69 Respiratory Rate 15 Blood Pressure 180/77 H Pulse Oximetry 98 Oxygen Delivery Method Room Air MDM - Skin/Abscess/Foreign Bdy Imaging Data Left wrist: Radiologist's Impression: FINDINGS:? ? Bones:? No fractures or dislocations.? No suspicious bony lesions.? Generalized degenerative changes are seen, which are worst involving the 1st carpometacarpal joint. ? Scaphoid view:? No navicular fractures are seen. ? Soft tissues:? No suspicious soft tissue calcifications.? ? ? IMPRESSION:? Negative for acute fracture by plain film. ? If there is snuffbox tenderness (or other clinical suspicion for a fracture not seen on these images) then a repeat examination would be recommended in 10 to 14 days, following splinting. ? ? ? Dictated by: Butch Alberts M.D. on 03/13/2022 at 17:46 ? ? MDM Narrative Medical decision making narrative: 76-year-old woman who had some soft tissue injury to the volar surface of her wrist after being pulled with a dog leash. She does not have any snuffbox tenderness majority of the pain is more over the distal ulna with no evidence of fracture. She is on Eliquis and has a moderate amount of bruising. The bruising is beginning to resolve and extend up her arm with some redness. There is no sign of infection. Discussed the difference between redness shades typically associated with infection versus readiness shades typically associated with bruising resolution. She has significant improvement in pain with immobilization with a wrist splint placed. Did let her know that she could take extra Vicodin over the next 1-3 days an additional 12 tablets is given to her should she run out of her prescription early. Encouraged her to make sure that her [facility] is aware of this additional medication. Questions are answered, clearly reviewed reasons to return to the emergency department and signs of cellulitis. She is safe for discharge home Discharge Plan Departure Patient Disposition: Home Clinical Impression: Hematoma Left wrist sprain Qualifiers: Encounter type: initial encounter Qualified Code(s): S63.502A - Unspecified sprain of left wrist, initial encounter Instructions: DI for Wrist Sprain Activity Restrictions/Additional Instructions: Thank you for coming in today The x-rays of your wrist do not show any broken bones. Clearly you do have some soft tissue injury and broke some blood vessels. The redness that you are noticing looks very much like bleeding rather than infection. The actual bruising you can see at the base of your wrist is likely going to get worse and I suspect that the red coloration that your seeing is going to turn more bluish and then purplish and then the rainbow of colors of healing bruises. It is okay to use extra Vicodin for 2-3 days to help with the severe pain. I will give you a prescription for 12 additional pills. Please let your regular doctor know that you were prescribed these from the emergency department to use for an acute injury. If you notice fever, that deep bright red color we talked about or lines streaking up from the injury than I would be more concerned about infection. If you notice that, pain that can not be controlled with Vicodin, cold fingers that can not be warmed up or other findings that concern you, please return to the ER Prescriptions: New hydrocodone-acetaminophen 7.5-325 mg tablet 2 tab PO Q6H PRN (Reason: pain) Qty: 12 0RF Rx Instructions: in addition to chronic hydrocodone. For acute wrist injury No Action Lantus U-100 Insulin 100 unit/mL solution 23 unit SUBCUT HS Qty: 0 lisinopril 20 mg tablet 40 mg PO QDAY Qty: 0 acetaminophen 325 mg Tablet 650 mg PO Q4H MDD 4000 mg PRN (Reason: Pain, Moderate) magnesium oxide 420 mg Tablet 420 mg PO QPM folic acid 1 mg Tablet 1 mg PO DAILY clobetasol 0.05 % Ointment 1 applic TOPICAL BID PRN (Reason: Rash) vits A and D-white pet-lanolin [A and D (willie, pet)] Ointment 1 applic Topical DAILY PRN (Reason: Dry Skin) apixaban 5 mg Tablet 5 mg PO BID Lubricant Eye ointment 1 applic ophthalmic (eye) BEDTIME diltiazem HCl 30 mg tablet 15 mg PO BID lansoprazole 30 mg tablet,disintegrat, delay rel 30 mg PO DAILY tacrolimus 0.1 % ointment 1 applic TOPICAL DAILY doxycycline hyclate 100 mg tablet 100 mg PO BID Qty: 14 0RF cyanocobalamin (vitamin B-12) 1,000 mcg Tablet 5,000 mcg PO DAILY nitroglycerin [Nitrostat] 0.4 mg Tablet, Sublingual 0.4 mg SUBLINGUAL Q5-15M PRN (Reason: Chest Pain) multivitamin with minerals Capsule 1 cap PO DAILY cholecalciferol (vitamin D3) [Vitamin D3] 4,000 unit Capsule 4,000 unit PO DAILY coenzyme Q10 1 cap PO DAILY doxycycline hyclate 100 mg capsule 100 mg PO BID Qty: 20 0RF torsemide 20 mg tablet 40 mg PO DAILY Referrals: Geri Herrera MD [Primary Care Provider] -
[2022-03-13] MEDS: HYDROCODONE/ACET 5/325 TABLET 2 TAB PO (20:30)
[2022-03-13 20:32] VITALS: BP 142/78; PULSE 68; RESP 16; O2SAT 98
== END 2022-03-13 20:32 | disposition home or self-care (01) ==
PROVIDERS: Emergency Provider Emergency Medicine; PCP Internal Medicine
DX: S63.502A Unspecified sprain of left wrist, initial encounter (principal); S60.212A Contusion of left wrist, initial encounter; X58.XXXA Exposure to other specified factors, initial encounter
CPT/HCPCS: 73110; 99283

== ENCOUNTER 2022-09-12 17:27 | Emergency (ER) | payer OTHER, SELFPAY ==
[2022-09-12 17:33] VITALS: BP 189/75; PULSE 66; RESP 18; TEMP 36.3; BMI 39.4
--- NOTE | 2022-09-12 18:06 | ED_ITS ---
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 Patient states she will often have a little bit of bleeding but today would not stop. Started about 12 30 this afternoon after brushing her teeth and has been slow but persistent. She is not sure the exact location. She is tried rinsing her mouth with usually works. She states she has poor dentition she is been told it would be 30,000 dollars to fix her teeth, she also notes she is lichen planus in her mouth. Patient states no other symptoms. She called [facility]. Related Data Home Medications Medication Instructions Recorded Confirmed Lubricant Eye 1 applic ophthalmic (eye) BEDTIME 09/24/17 02/01/20 acetaminophen 325 mg tablet 650 mg PO Q4H PRN Pain, Moderate 09/24/17 04/05/20 apixaban 5 mg tablet 5 mg PO BID 09/24/17 04/05/20 clobetasol 0.05 % topical ointment 1 applic topical BID PRN Rash 09/24/17 04/05/20 folic acid 1 mg tablet 1 mg PO DAILY 09/24/17 04/05/20 magnesium oxide 420 mg tablet 420 mg PO QPM 09/24/17 02/01/20 vitamins A and D-white 1 applic topical DAILY PRN Dry Skin 09/24/17 04/05/20 petrolatum-lanolin topical ointment (A and D (willie, pet) topical ointment) cholecalciferol (vitamin D3) 100 4,000 unit PO DAILY 11/05/17 04/05/20 mcg (4,000 unit) capsule (Vitamin D3) coenzyme Q10 1 cap PO DAILY 11/05/17 02/01/20 cyanocobalamin (vitamin B-12) 5,000 mcg PO DAILY 11/05/17 04/05/20 1,000 mcg tablet multivitamin with minerals 1 cap PO DAILY 11/05/17 04/05/20 nitroglycerin 0.4 mg sublingual 0.4 mg sublingual Q5-15M PRN Chest 11/05/17 04/05/20 tablet (Nitrostat) Pain diltiazem HCl 30 mg tablet 15 mg PO BID 04/05/20 04/05/20 insulin glargine 100 unit/mL 23 unit SUBCUT HS #0 mL 04/05/20 04/05/20 subcutaneous solution (Lantus U-100 Insulin) lansoprazole 30 mg delayed 30 mg PO DAILY 04/05/20 04/05/20 release,disintegrating tablet lisinopril 20 mg tablet 40 mg PO QDAY #0 tabs 04/05/20 04/05/20 tacrolimus 0.1 % topical ointment 1 applic topical DAILY 04/05/20 04/05/20 torsemide 20 mg tablet 40 mg PO DAILY 04/05/20 04/05/20 Previous Rx's Medication Instructions Recorded doxycycline hyclate 100 mg tablet 100 mg PO BID #14 tabs 06/21/20 doxycycline hyclate 100 mg capsule 100 mg PO BID #20 caps 02/07/22 hydrocodone 7.5 mg-acetaminophen 2 tab PO Q6H PRN pain #12 tabs 03/13/22 325 mg tablet Allergies Allergy/AdvReac Type Severity Reaction Status Date / Time adhesive [ADHESIVE] Allergy Mild Verified 09/12/22 17:37 aspirin [ASPIRIN] Allergy Mild Verified 09/12/22 17:37 meperidine [From DEMEROL] Allergy Mild Verified 09/12/22 17:37 metoprolol [METOPROLOL] Allergy Mild Verified 09/12/22 17:37 pioglitazone [From ACTOS] Allergy Mild Verified 09/12/22 17:37 prochlorperazine Allergy Mild Verified 09/12/22 17:37 [From COMPAZINE] rosiglitazone [From AVANDIA] Allergy Mild Verified 09/12/22 17:37 sulfamethoxazole Allergy Mild Verified 09/12/22 17:37 [From BACTRIM] trimethoprim [From BACTRIM] Allergy Mild Verified 09/12/22 17:37 venom-honey bee Allergy Mild Verified 09/12/22 17:37 [BEE VENOM (HONEY BEE)] pseudoephedrine Allergy Unknown Verified 09/12/22 17:37 [From ACTIFED] triprolidine [From ACTIFED] Allergy Unknown Verified 09/12/22 17:37 PORK Allergy Unknown Uncoded 11/05/17 17:49 iv contrast Allergy Uncoded 11/05/17 17:49 Review of Systems Review of Systems ROS Unobtainable: All systems reviewed & are unremarkable except as noted in HPI and below Patient History Medical History Atrial fibrillation Diarrhea Hyponatremia Laceration of right great toe Obesity (BMI 30-39.9) Obstructive sleep apnea Palpitations Snoring Viral gastroenteritis Surgical History No pertinent past surgical history Family History Family/Other Hypertension Diabetes mellitus Heart disease Alcohol abuse Father Loud snoring Sleep apnea Hypertension Heart disease Depression Alcohol abuse Mother Hypertension Diabetes mellitus Heart disease Depression Family/Other Loud snoring Sleep apnea Insomnia Restless leg Hypertension Diabetes mellitus Heart disease Depression Alcohol abuse Social History Smoking Status: Never smoker Smoking Status: Never smoker alcohol intake frequency: other Substance Use Type: does not use Exam Narrative Exam Narrative: GEN: well nourished, well appearing elderly if you, alert and oriented x 3, patient appears to be in mild distress. HEENT: Atraumatic, pupils are equal round reactive to light, extraocular movements are intact, nares are clear, there is no conjunctival pallor. Throat is clear without any exudates, erythema, tonsillar enlargement or uvular deviation, patient has poor dentition throughout. Patient is found to have quite recessed gingiva at tooth 19, tooth 17 and 18 appear to be gone. There is a slow ooze from this edge where it is receded as well as area of what appears to be slight ulceration small amount of whitish discoloration proximally he .75cm in circumference on the internal cheek just adjacent to that area, there is persistent ooze of blood. No cut or laceration is appreciated. HEART: Regular rate and rhythm without murmur, clicks, rubs. LUNGS:Lungs clear to auscultation, no wheezes, rales, crackles, chest moves symmetrically ABD:bowel sounds normal, soft, non-tender, no guarding, rebound, rigidity, no masses noted, no hepatosplenomegaly MSCL: Non-tender, no muscle atrophy, muscles strength 5/5 upper and lower extremities, full range of motion, normal gait NEURO:CN 2-12 intact, sensation normal SKIN: No rash, erythema or other skin changes Initial Vital Signs Initial Vital Signs: Vital Signs Temperature 97.3 F L 09/12/22 17:33 Pulse Rate 66 09/12/22 17:33 Respiratory Rate 18 09/12/22 17:33 Blood Pressure 189/75 H 09/12/22 17:33 Oxygen Delivery Method Room Air 09/12/22 17:33 Course Orders Ordered: ED Orders 09/12/22 20:05 Type and Screen Stat 09/13/22 02:45 Hemoglobin and Hematocrit Stat Discontinued Medications Lidocaine HCl 20 ml/ (Epinephrine HCl 0.2 mg) 0 ml INJ INTRA-OP ONE Stop: 09/12/22 19:41 Last Admin: 09/12/22 20:26 Dose: Not Given Documented By: ANDI Tranexamic Acid 1,000 mg/ (Sodium Chloride) 100 mls @ 200 mls/hr IV NOW ONE Stop: 09/13/22 00:42 Last Infusion: 09/13/22 01:05 Dose: 0 mls/hr Documented By: Admin: 09/13/22 00:23 Dose: 200 mls/hr Documented By: RALEIGH Tranexamic Acid (Tranexamic Acid 1,000 Mg Vial) 1,000 mg TOP NOW ONE Stop: 09/12/22 18:25 Last Admin: 09/12/22 18:33 Dose: 1,000 mg Documented By: NR Tranexamic Acid (Tranexamic Acid 1,000 Mg Vial) 500 mg INH NOW ONE Stop: 09/12/22 19:43 Last Admin: 09/12/22 20:14 Dose: 500 mg Documented By: ANDI Tranexamic Acid (Tranexamic Acid 1,000 Mg Vial) 1,000 mg INH NOW ONE Stop: 09/12/22 21:04 Last Admin: 09/13/22 00:50 Dose: Not Given Documented By: SB Vital Signs Vital signs: Vital Signs - 8 hr 09/12/22 17:33 Temperature 97.3 F L Pulse Rate 66 Respiratory Rate 18 Blood Pressure 189/75 H Oxygen Delivery Method Room Air MDM - Dental/Oral Lab Data 09/13/22 02:45 09/12/22 19:45 Labs: Lab Results 09/12/22 09/12/22 09/12/22 Range/Units 19:45 19:45 19:45 WBC 9.9 (4.5-11.0) X10^3/uL RBC 3.80 L (4.0-5.2) X10^6/uL Hgb 10.5 L (12.0-16.0) g/dL Hct 32.2 L (36-46) % MCV 84.7 (80-100) fL MCH 27.7 (26-34) PG MCHC 32.7 (30-36) % RDW 15.6 H (11.6-14.8) % Plt Count 278 (150-400) X10^3/uL Neut % (Auto) 56.6 (50-75) % Lymph % (Auto) 32.9 (25-40) % Orange % (Auto) 7.4 (3-14) % Eos % (Auto) 2.2 (2-4) % Baso % (Auto) 0.9 (0-2) % Neut # (Auto) 5600 (8020-8216) /uL Lymph # (Auto) 3300 (8268-2476) /uL Orange # (Auto) 700 (0-900) /uL Eos # (Auto) 200 (0-450) /uL Baso # (Auto) 100 (0-100) /uL PT 15.0 H (10.1-12.7) SECONDS INR 1.3 (0.9-1.3) APTT 32 (26-36) SECONDS Sodium 136 L (137-145) mmol/L Potassium 4.1 (3.4-5.1) mmol/L Chloride 99 (98-107) mmol/L Carbon Dioxide 30 (22-32) mmol/L BUN 24 H (7-17) mg/dL Creatinine 1.01 (0.52-1.04) mg/dL Estimated GFR 57 L (>60) mL/min BUN/Creatinine Ratio 23.8 H (6-22) Glucose 154 H (80-110) mg/dL Calcium 9.4 (8.4-10.2) mg/dL Total Bilirubin 0.3 (0.2-1.3) mg/dL AST 19 (14-36) IU/L ALT 14 (<35) IU/L Alkaline Phosphatase 65 (38-126) U/L Total Protein 8.1 (6.3-8.2) g/dL Albumin 4.3 (3.5-5.0) g/dL Globulin 3.8 (1.7-4.1) g/dL Albumin/Globulin Ratio 1.1 (1.0-2.8) Blood Type Antibody Screen 09/12/22 09/13/22 Range/Units 20:05 02:45 WBC (4.5-11.0) X10^3/uL RBC (4.0-5.2) X10^6/uL Hgb 10.3 L (12.0-16.0) g/dL Hct 32.1 L (36-46) % MCV (80-100) fL MCH (26-34) PG MCHC (30-36) % RDW (11.6-14.8) % Plt Count (150-400) X10^3/uL Neut % (Auto) (50-75) % Lymph % (Auto) (25-40) % Orange % (Auto) (3-14) % Eos % (Auto) (2-4) % Baso % (Auto) (0-2) % Neut # (Auto) (3923-4907) /uL Lymph # (Auto) (2535-4627) /uL Orange # (Auto) (0-900) /uL Eos # (Auto) (0-450) /uL Baso # (Auto) (0-100) /uL PT (10.1-12.7) SECONDS INR (0.9-1.3) APTT (26-36) SECONDS Sodium (137-145) mmol/L Potassium (3.4-5.1) mmol/L Chloride (98-107) mmol/L Carbon Dioxide (22-32) mmol/L BUN (7-17) mg/dL Creatinine (0.52-1.04) mg/dL Estimated GFR (>60) mL/min BUN/Creatinine Ratio (6-22) Glucose (80-110) mg/dL Calcium (8.4-10.2) mg/dL Total Bilirubin (0.2-1.3) mg/dL AST (14-36) IU/L ALT (<35) IU/L Alkaline Phosphatase (38-126) U/L Total Protein (6.3-8.2) g/dL Albumin (3.5-5.0) g/dL Globulin (1.7-4.1) g/dL Albumin/Globulin Ratio (1.0-2.8) Blood Type A Positive Antibody Screen Negative MDM Narrative Medical decision making narrative: 76-year-old female on Eliquis with recurrent dental bleeding that would not stop today. Patient is on Eliquis. Patient had persistent bleeding throughout her stay, labs were obtained hemoglobin is 10 which is stable compared to her baseline ranging from 10-11 as far back as 2020. Creatinine is 1.01 normal electrolytes. Glucose is 154. Patient's LFTs are otherwise normal. Patient has had slow persistent ooze throughout her stay. Difficult to ascertain exact amount as patient often swishes with water and spits and then suctioned but has been persistent throughout stay with ooze but not brisk. Patient had rinse and spit with ice water without improvement. I am able to see a small area on the posterior that is slightly ulcerated she does have a history of lichen planus. Could possibly be cancer. Not brisk but actively oozing. Patient had local pressure with TXA topically, we attempted Surgicel, attempted injection of lidocaine with epi. Attempted inhaled Tx a which seemed to be helpful patient had stop the bleeding for about half an hour and then restarted. Patient then had Gelfoam locally another injection of lidocaine little bit more adjacent to the other area. This still was unsuccessful after multiple hours continues to just have a slow ooze despite direct pressure by myself for at least 15-20 minutes in between multiple procedures. Discussed with Dr. Thomas Browning, ENT he would recommend attempting IV TXA, and topical epinephrine with direct pressure. We discussed she is on Eliquis there is some increased for stroke risk. I discussed this with the patient. She is agreeable for attempt despite risks. We did discuss that this medication does not work through the exact same path wheezes apixaban and may not be successful. Discussed with Dr. Browning if unsuccessful he would ask for transfer to [facility]. Dr. Browning did ask about reversal agents for apixaban but we do not carry this at our facility. Patient was given IV TXA after discussion with Dr. Browning, 1000 mg. Topical epinephrine. Bleeding has slightly improved but is still quite regular. Is not brisk but is persistent felt not appropriate to discharge home. I spoke with Dr. Browning he asked for transfer to [facility] to ED to ED. will see patient there. Spoke with Dr. Urban at [facility]. Accepts for transfer. Discussed plan for patient to be seen by ENT after arrival. Dr. Thomas Browning request for transfer. Patient transport not available until 0445am. Repeat hemoglobin 10.3 with a crit of 32 at 0245am with prior at 7:45 p.m. was 10.5 with a crit of 32 (7 hours apart). Discharge Plan Departure Patient Disposition: [facility] Clinical Impression: Bleeding from mouth Prescriptions: No Action Lantus U-100 Insulin 100 unit/mL solution 23 unit SUBCUT HS Qty: 0 lisinopril 20 mg tablet 40 mg PO QDAY Qty: 0 acetaminophen 325 mg Tablet 650 mg PO Q4H MDD 4000 mg PRN (Reason: Pain, Moderate) magnesium oxide 420 mg Tablet 420 mg PO QPM folic acid 1 mg Tablet 1 mg PO DAILY clobetasol 0.05 % Ointment 1 applic TOPICAL BID PRN (Reason: Rash) vits A and D-white pet-lanolin [A and D (willie, pet)] Ointment 1 applic Topical DAILY PRN (Reason: Dry Skin) apixaban 5 mg Tablet 5 mg PO BID Lubricant Eye ointment 1 applic ophthalmic (eye) BEDTIME diltiazem HCl 30 mg tablet 15 mg PO BID lansoprazole 30 mg tablet,disintegrat, delay rel 30 mg PO DAILY tacrolimus 0.1 % ointment 1 applic TOPICAL DAILY doxycycline hyclate 100 mg tablet 100 mg PO BID Qty: 14 0RF hydrocodone-acetaminophen 7.5-325 mg tablet 2 tab PO Q6H PRN (Reason: pain) Qty: 12 0RF Rx Instructions: in addition to chronic hydrocodone. For acute wrist injury cyanocobalamin (vitamin B-12) 1,000 mcg Tablet 5,000 mcg PO DAILY nitroglycerin [Nitrostat] 0.4 mg Tablet, Sublingual 0.4 mg SUBLINGUAL Q5-15M PRN (Reason: Chest Pain) multivitamin with minerals Capsule 1 cap PO DAILY cholecalciferol (vitamin D3) [Vitamin D3] 4,000 unit Capsule 4,000 unit PO DAILY coenzyme Q10 1 cap PO DAILY doxycycline hyclate 100 mg capsule 100 mg PO BID Qty: 20 0RF torsemide 20 mg tablet 40 mg PO DAILY Referrals: Geri Herrera MD [Primary Care Provider] -
--- NOTE | 2022-09-12 18:09 | PC.NURSE ---
pt presents with blood in her mouth. first exam, hard to visualize gums due to blood clots. pt given water and suction to swish and spit. provider notified that mouth is clearer to visualize
[2022-09-12] MEDS: TRANEXAMIC ACID 1,000 MG VIAL 1000 MG TOP (18:33)
[2022-09-12 19:58] LABS: Add Manual Diff / Slide Review NO; Basophils Absolute Auto 100 /uL (0-100); Basophils Percent Auto 0.9 % (0-2); Eosinophils Absolute Auto 200 /uL (0-450); Eosinophils Percent Auto 2.2 % (2-4); Hematocrit 32.2 % (36-46); Hemoglobin 10.5 g/dL (12.0-16.0); Lymphocytes Absolute Auto 3300 /uL (1100-4500); Lymphocytes Percent Auto 32.9 % (25-40); Mean Corpuscular HGB Conc 32.7 % (30-36); Mean Corpuscular Hemoglobin 27.7 PG (26-34); Mean Corpuscular Volume 84.7 fL (80-100); Monocytes Absolute Auto 700 /uL (0-900); Monocytes Percent Auto 7.4 % (3-14); Neutrophils Absolute Auto 5600 /uL (1500-7000); Neutrophils Percent Auto 56.6 % (50-75); Platelet Count 278 X10^3/uL (150-400); Red Cell Distribution Width 15.6 % (11.6-14.8); White Blood Cell Count 9.9 X10^3/uL (4.5-11.0)
[2022-09-12 20:06] LABS: INR 1.3 (0.9-1.3)
[2022-09-12 20:08] LABS: PTT Partial Thromboplastin Tim 32 SECONDS (26-36)
[2022-09-12 20:09] LABS: Alanine Aminotransferase 14 IU/L (<35); Albumin 4.3 g/dL (3.5-5.0); Albumin Globulin Ratio 1.1 (1.0-2.8); Alkaline Phosphatase 65 U/L (38-126); Aspartate Aminotransferase 19 IU/L (14-36); BUN Creatinine Ratio 23.8 (6-22); Bilirubin Total 0.3 mg/dL (0.2-1.3); Blood Urea Nitrogen 24 mg/dL (7-17); Calcium 9.4 mg/dL (8.4-10.2); Carbon Dioxide 30 mmol/L (22-32); Chloride 99 mmol/L (98-107); Estimated Glomerular Filt Rate 57 mL/min (>60); Globulin 3.8 g/dL (1.7-4.1); Glucose 154 mg/dL (80-110); HEMOLYSIS < 15 (0-50); Potassium 4.1 mmol/L (3.4-5.1); Sodium 136 mmol/L (137-145); Total Protein 8.1 g/dL (6.3-8.2)
[2022-09-12] MEDS: TRANEXAMIC ACID 1,000 MG VIAL 500 MG INH (20:14)
--- NOTE | 2022-09-12 20:29 | PC.NURSE ---
Lidocaine 2% with epi already in med pulled from [facility] by Terese Whaley
[2022-09-13] MEDS: TRANEXAMIC ACID 1,000 MG in SODIUM CHLORIDE 0.9% 100 ML 200 MG IV (00:23)
[2022-09-13 02:51] LABS: Hematocrit 32.1 % (36-46); Hemoglobin 10.3 g/dL (12.0-16.0)
[2022-09-13 04:53] VITALS: BP 164/74; PULSE 70; RESP 16; TEMP 36.4; O2SAT 97
== END 2022-09-13 04:54 | disposition short-term general hospital (02) ==
PROVIDERS: Emergency Provider Emergency Medicine; PCP Internal Medicine
DX: K13.79 Other lesions of oral mucosa (principal); Z79.01 Long term (current) use of anticoagulants; Z79.899 Other long term (current) drug therapy
CPT/HCPCS: 36415; 80053; 85014; 85018; 85025; 85610; 85730; 86850; 86900; 86901; 96365; 99284; J0171

== ENCOUNTER 2023-05-28 01:03 | Observation (INO) | payer OTHER, SELFPAY ==
[2023-05-28] VITALS (23 sets, daily range): BP systolic 114–169; BP diastolic 37–67; PULSE 66–102; RESP 14–24; TEMP 36.2–37.2; O2SAT 92–100; BMI 41.7; BMI 40.1
--- NOTE | 2023-05-28 | DI.CT.S_ITS ---
PROCEDURE: CT LE LT W CON INDICATIONS: FALL/KNEE PAIN TECHNIQUE: Noncontrast 1-1.5 mm axial sections acquired from the mid-patella to the proximal tibia, with coronal and sagittal reformats. COMPARISON: [facility], CR, XR KNEE LT 3V, 05/28/2023, 1:42. FINDINGS: Image quality: Image quality is mildly degraded due to patient body habitus and streak artifact related to the contralateral right knee arthroplasty. Diagnostic information is obtained. Bones: No definite osseous fracture is seen. Osseous structures are normally aligned. There is severe joint space narrowing at the medial femorotibial compartment with subchondral sclerosis and marginal osteophyte formation. Marginal osteophyte formation is seen at the lateral and anterior compartments. Soft tissues: There is a small joint effusion. Ossified intra-articular loose body is seen anterior to the medial femorotibial compartment joint line. Mild nonspecific subcutaneous edema is seen throughout the left lower extremity. The articular cartilages, menisci, ligaments, tendons are not well evaluated with CT. There is generalized fatty infiltration of the visualized musculature. IMPRESSION: 1. No definite fracture line is visualized on CT. If there is continued clinical concern for occult fracture, osseous contusion, or soft tissue injury, then MRI could be performed for further evaluation. 2. 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 3. Small joint effusion with a small ossified intra-articular loose body along the anterior aspect of the medial compartment. 4. Nonspecific subcutaneous edema throughout the visualized left lower extremity. Approved by: Augustus Flowers M.D. on 05/28/2023 at 8:02
--- NOTE | 2023-05-28 01:34 | ED.FALL ---
HPI - Fall General Chief Complaint: Fall Stated Complaint: GLF Time Seen by Provider: 05/28/23 01:24 Source: patient and EMS Mode of arrival: EMS History of Present Illness HPI Narrative: Patient comes to the ED by ambulance after a ground level fall in her apartment. She says she simply lost her balance and tripped over forward striking her face against a basket of goods on the floor. She ended up being in a kneeling sort of position for about 6 hours before she could alert someone to her presence. She said there is terrible pain in her left knee because she was kneeling on it for so long but there was not that much pain initially. She doubts that she is broken any bones. She did not hit her head other than her face. She had some bleeding from her nose. She has no neck pain no back pain no chest pain no abdominal pain. She does not believe she had a syncopal event. She was recently hospitalized at the [facility], [place] in [place] for cellulitis and lymphedema Related Data Home Medications Medication Instructions Recorded Confirmed Lubricant Eye 1 applic ophthalmic (eye) BEDTIME 09/24/17 02/01/20 acetaminophen 325 mg tablet 650 mg PO Q4H PRN Pain, Moderate 09/24/17 04/05/20 apixaban 5 mg tablet 5 mg PO BID 09/24/17 04/05/20 clobetasol 0.05 % topical ointment 1 applic topical BID PRN Rash 09/24/17 04/05/20 folic acid 1 mg tablet 1 mg PO DAILY 09/24/17 04/05/20 magnesium oxide 420 mg tablet 420 mg PO QPM 09/24/17 02/01/20 vitamins A and D-white 1 applic topical DAILY PRN Dry Skin 09/24/17 04/05/20 petrolatum-lanolin topical ointment (A and D (willie, pet) topical ointment) cholecalciferol (vitamin D3) 100 4,000 unit PO DAILY 11/05/17 04/05/20 mcg (4,000 unit) capsule (Vitamin D3) coenzyme Q10 1 cap PO DAILY 11/05/17 02/01/20 cyanocobalamin (vitamin B-12) 5,000 mcg PO DAILY 11/05/17 04/05/20 1,000 mcg tablet multivitamin with minerals 1 cap PO DAILY 11/05/17 04/05/20 nitroglycerin 0.4 mg sublingual 0.4 mg sublingual Q5-15M PRN Chest 11/05/17 04/05/20 tablet (Nitrostat) Pain diltiazem HCl 30 mg tablet 15 mg PO BID 04/05/20 04/05/20 insulin glargine 100 unit/mL 23 unit SUBCUT HS #0 mL 04/05/20 04/05/20 subcutaneous solution (Lantus U-100 Insulin) lansoprazole 30 mg delayed 30 mg PO DAILY 04/05/20 04/05/20 release,disintegrating tablet lisinopril 20 mg tablet 40 mg PO QDAY #0 tabs 04/05/20 04/05/20 tacrolimus 0.1 % topical ointment 1 applic topical DAILY 04/05/20 04/05/20 torsemide 20 mg tablet 40 mg PO DAILY 04/05/20 04/05/20 Previous Rx's Medication Instructions Recorded doxycycline hyclate 100 mg tablet 100 mg PO BID #14 tabs 06/21/20 doxycycline hyclate 100 mg capsule 100 mg PO BID #20 caps 02/07/22 hydrocodone 7.5 mg-acetaminophen 2 tab PO Q6H PRN pain #12 tabs 03/13/22 325 mg tablet Allergies Allergy/AdvReac Type Severity Reaction Status Date / Time adhesive [ADHESIVE] Allergy Mild Verified 09/12/22 17:37 aspirin [ASPIRIN] Allergy Mild Verified 09/12/22 17:37 meperidine [From DEMEROL] Allergy Mild Verified 09/12/22 17:37 metoprolol [METOPROLOL] Allergy Mild Verified 09/12/22 17:37 pioglitazone [From ACTOS] Allergy Mild Verified 09/12/22 17:37 prochlorperazine Allergy Mild Verified 09/12/22 17:37 [From COMPAZINE] rosiglitazone [From AVANDIA] Allergy Mild Verified 09/12/22 17:37 sulfamethoxazole Allergy Mild Verified 09/12/22 17:37 [From BACTRIM] trimethoprim [From BACTRIM] Allergy Mild Verified 09/12/22 17:37 venom-honey bee Allergy Mild Verified 09/12/22 17:37 [BEE VENOM (HONEY BEE)] pseudoephedrine Allergy Unknown Verified 09/12/22 17:37 [From ACTIFED] triprolidine [From ACTIFED] Allergy Unknown Verified 09/12/22 17:37 PORK Allergy Unknown Uncoded 11/05/17 17:49 iv contrast Allergy Uncoded 11/05/17 17:49 Patient History Medical History Atrial fibrillation Diarrhea Hyponatremia Laceration of right great toe Obesity (BMI 30-39.9) Obstructive sleep apnea Palpitations Snoring Viral gastroenteritis Surgical History No pertinent past surgical history Family History Family/Other Hypertension Diabetes mellitus Heart disease Alcohol abuse Father Loud snoring Sleep apnea Hypertension Heart disease Depression Alcohol abuse Mother Hypertension Diabetes mellitus Heart disease Depression Family/Other Loud snoring Sleep apnea Insomnia Restless leg Hypertension Diabetes mellitus Heart disease Depression Alcohol abuse Social History Smoking Status: Never smoker Smoking Status: Never smoker alcohol intake frequency: other Substance Use Type: does not use Exam Narrative Exam Narrative: GENERAL: Alert, cooperative and in no distress. HEAD: Atraumatic. Normocephalic. EYES: Sclera are clear without icterus. Extraocular movements are full. ENT: No rhinorrhea. NECK: Supple. Full range of motion. CARDIOVASCULAR: Normal rate and rhythm without murmur gallop or rub. No chest pain to palpation RESPIRATORY: Clear to auscultation. Breath sounds equal bilaterally. No wheezes, rales, or rhonchi. GASTROINTESTINAL: Abdomen soft, non-tender, nondistended. EXTREMITIES: As noted under the skin exam BACK: Normal inspection, no CVA tenderness. NEURO: Nonfocal examination, normal speech, normal gait. SKIN: Marked edema bilateral lower extremities. Significant erythema and warmth to the left knee. Limited range of motion. PSYCH: Normally oriented. Normal range of affect. Appropriate behavior Initial Vital Signs Initial Vital Signs: Vital Signs Pulse Rate 92 H 05/28/23 01:08 Respiratory Rate 15 05/28/23 01:08 Pulse Oximetry 95 05/28/23 01:08 Course Orders Ordered: ED Orders 05/28/23 01:37 CT head/brain wo con Stat XR knee LT 3V Stat UA dip and micro [Urinalysis and Microscopic] Stat EKG-12 Lead Stat 05/28/23 02:15 CBC Auto Diff [Complete Blood Count AUTO DIFF] Stat CMP [Comprehensive Metabolic Panel] Stat CPK [Creatine Kinase] Stat 05/28/23 03:06 XR hip w pel if done RT 2V Stat Discontinued Medications Acetaminophen (Acetaminophen 325 Mg Tablet) 975 mg PO NOW ONE Stop: 05/28/23 01:39 Last Admin: 05/28/23 02:19 Dose: Not Given Documented By: RALEIGH Ondansetron HCl (Ondansetron 4 Mg Odt) 4 mg SL NOW ONE Stop: 05/28/23 01:59 Last Admin: 05/28/23 02:01 Dose: 4 mg Documented By: GORDON Vital Signs Vital signs: Vital Signs - 8 hr 05/28/23 01:08 05/28/23 01:09 05/28/23 01:30 Temperature 98.1 F Pulse Rate 92 H 91 H 91 H Respiratory Rate 15 18 19 Blood Pressure 156/65 H Pulse Oximetry 95 95 97 Oxygen Delivery Method Room Air 05/28/23 01:31 05/28/23 01:31 05/28/23 02:00 Temperature Pulse Rate 90 102 H Respiratory Rate 16 20 Blood Pressure 140/56 L Pulse Oximetry 97 Oxygen Delivery Method 05/28/23 02:10 05/28/23 02:10 05/28/23 02:30 Temperature Pulse Rate 94 H 77 Respiratory Rate 18 18 Blood Pressure 156/67 H Pulse Oximetry 97 Oxygen Delivery Method 05/28/23 02:31 05/28/23 02:31 05/28/23 03:19 Temperature Pulse Rate 76 85 Respiratory Rate 17 Blood Pressure 136/61 Pulse Oximetry 96 98 Oxygen Delivery Method 05/28/23 03:21 05/28/23 03:21 Temperature Pulse Rate 83 Respiratory Rate 17 Blood Pressure 139/62 Pulse Oximetry 100 Oxygen Delivery Method MDM - Fall Lab Data 05/28/23 02:15 05/28/23 02:15 Labs: Lab Results 05/28/23 Range/Units 02:15 WBC 13.8 H (4.5-11.0) X10^3/uL RBC 3.87 L (4.0-5.2) X10^6/uL Hgb 10.6 L (12.0-16.0) g/dL Hct 32.6 L (36-46) % MCV 84.3 (80-100) fL MCH 27.4 (26-34) PG MCHC 32.5 (30-36) % RDW 14.7 (11.6-14.8) % Plt Count 333 (150-400) X10^3/uL Neut % (Auto) 82.6 H (50-75) % Lymph % (Auto) 10.8 L (25-40) % Winn % (Auto) 6.2 (3-14) % Eos % (Auto) 0.1 L (2-4) % Baso % (Auto) 0.3 (0-2) % Neut # (Auto) 33021 H (2999-1983) /uL Lymph # (Auto) 1500 (6623-1257) /uL Winn # (Auto) 900 (0-900) /uL Eos # (Auto) 0 (0-450) /uL Baso # (Auto) 0 (0-100) /uL Sodium 137 (137-145) mmol/L Potassium 3.2 L (3.4-5.1) mmol/L Chloride 101 (98-107) mmol/L Carbon Dioxide 24 (22-32) mmol/L BUN 26 H (7-17) mg/dL Creatinine 1.15 H (0.52-1.04) mg/dL Estimated GFR 49 L (>60) mL/min BUN/Creatinine Ratio 22.6 H (6-22) Glucose 218 H (80-110) mg/dL Calcium 9.6 (8.4-10.2) mg/dL Total Bilirubin 0.6 (0.2-1.3) mg/dL AST 26 (14-36) IU/L ALT 14 (<35) IU/L Alkaline Phosphatase 83 (38-126) U/L Total Creatine Kinase 265 H (30-135) U/L Total Protein 7.9 (6.3-8.2) g/dL Albumin 4.0 (3.5-5.0) g/dL Globulin 3.9 (1.7-4.1) g/dL Albumin/Globulin Ratio 1.0 (1.0-2.8) Point of Care Testing Glucose POC 226 ECG Data Interpretation: ECG obtained at 2:27 a.m. shows sinus rhythm at 77 beats per minute. Poor R-wave progression otherwise unremarkable ECG MDM Narrative Medical decision making narrative: x-rays are negative to my eye but there is some irregularity at the left knee tibial plateau. Will order CT imaging to exclude tibial plateau fracture given her pain at that location. She has profound edema of both lower extremities. Trying to get her up to stand or walk is completely untenable even with multiple assistance. The idea of sending her home independently seems out of the question at the moment. Difficulty with collecting a UA. The specimen collected on the commode was grossly contaminated. Her leg pain and body habitus make a catheter collection difficult. Spoke to the hospitalist who agreed to admit the patient. Discharge Plan Departure Patient Disposition: Admitted As Inpatient Clinical Impression: Acute pain of left knee, Generalized muscle weakness, Anasarca Fall Qualifiers: Encounter type: initial encounter Qualified Code(s): W19.XXXA - Unspecified fall, initial encounter Contusion of face Qualifiers: Encounter type: initial encounter Qualified Code(s): S00.83XA - Contusion of other part of head, initial encounter
--- NOTE | 2023-05-28 01:37 | DI.RAD.S_ITS ---
PROCEDURE: XR KNEE LT 3V INDICATIONS: trauma TECHNIQUE: 3 views of the knee were acquired. COMPARISON: [facility], , KNEE 3V LEFT, 11/11/2010, 21:13. FINDINGS: Bones: No acute fractures or dislocations. No suspicious bony lesions. Severe joint space narrowing is seen at the medial femorotibial compartment. Tricompartmental marginal osteophytes are present. Soft tissues: Small joint effusion. Nonspecific soft tissue edema is present. IMPRESSION: 1. No acute osseous abnormality. If there is continued clinical concern or persistent symptoms, repeat radiographs or cross-sectional imaging (e.g. CT, MRI) may be helpful for further evaluation. 2. 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 3. Small joint effusion. Nonspecific subcutaneous edema. There is no significant discrepancy when compared to the overnight preliminary report. Approved by: Augustus Flowers M.D. on 05/28/2023 at 8:04
--- NOTE | 2023-05-28 01:37 | DI.CT.S_ITS ---
PROCEDURE: CT HEAD/BRAIN WO CON INDICATIONS: trauma TECHNIQUE: Noncontrast 4.5 mm thick angled axial sections acquired from the foramen magnum to the vertex, with coronal and sagittal reformats. For radiation dose reduction, the following was used: automated exposure control, adjustment of mA and/or kV according to patient size. COMPARISON: None. FINDINGS: Image quality: Diagnostic. CSF spaces: Basal cisterns are patent. No extra-axial fluid collections. The ventricles are symmetric in size and shape. Brain: No acute intracranial hemorrhage or mass effect. There is cerebral volume loss for age, with resultant ventricular and sulcal prominence. There are periventricular and deep white matter chronic small vessel ischemic changes. There is intracranial internal carotid artery atherosclerosis. Skull and face: Calvarium and visualized facial bones appear intact, without suspicious lesions. Sinuses: Visualized sinuses and mastoids are clear. IMPRESSION: No acute intracranial pathology. There is no significant discrepancy when compared to the overnight preliminary report. Approved by: Augustus Flowers M.D. on 05/28/2023 at 7:51
--- NOTE | 2023-05-28 02:00 | PC.NURSE ---
Pt requested to get up to bedside commode d/t needing to urinate and have bowel movement. Pt was assisted but required 2 man assist with extensive coaching to put her on commode. Pt was sitting on toilet and became nauseated and dry heaved. Pt was asked to get back into the bed. It took 3 people with extensive coaching again to get her back into bed. Pt was unable to move her legs onto the bed, was able to move her feet on the ground but took concentration and time for the pt to move them. Pt is unable to move extremities in bed on own. Positioned for comfort to left side as per pt request. Pillow placed under right leg.
[2023-05-28] MEDS: ONDANSETRON 4 MG ODT SL (02:01)
[2023-05-28 02:26] LABS: Add Manual Diff / Slide Review NO; Basophils Absolute Auto 0 /uL (0-100); Basophils Percent Auto 0.3 % (0-2); Eosinophils Absolute Auto 0 /uL (0-450); Eosinophils Percent Auto 0.1 % (2-4); Hematocrit 32.6 % (36-46); Hemoglobin 10.6 g/dL (12.0-16.0); Lymphocytes Absolute Auto 1500 /uL (1100-4500); Lymphocytes Percent Auto 10.8 % (25-40); Mean Corpuscular HGB Conc 32.5 % (30-36); Mean Corpuscular Hemoglobin 27.4 PG (26-34); Mean Corpuscular Volume 84.3 fL (80-100); Monocytes Absolute Auto 900 /uL (0-900); Monocytes Percent Auto 6.2 % (3-14); Neutrophils Absolute Auto 11400 /uL (1500-7000); Neutrophils Percent Auto 82.6 % (50-75); Platelet Count 333 X10^3/uL (150-400); Red Blood Cell Count 3.87 X10^6/uL (4.0-5.2); Red Cell Distribution Width 14.7 % (11.6-14.8); White Blood Cell Count 13.8 X10^3/uL (4.5-11.0)
[2023-05-28 02:36] LABS: Alanine Aminotransferase 14 IU/L (<35); Alkaline Phosphatase 83 U/L (38-126); Aspartate Aminotransferase 26 IU/L (14-36); BUN Creatinine Ratio 22.6 (6-22); Bilirubin Total 0.6 mg/dL (0.2-1.3); Blood Urea Nitrogen 26 mg/dL (7-17); Calcium 9.6 mg/dL (8.4-10.2); Carbon Dioxide 24 mmol/L (22-32); Chloride 101 mmol/L (98-107); Estimated Glomerular Filt Rate 49 mL/min (>60); Globulin 3.9 g/dL (1.7-4.1); Glucose 218 mg/dL (80-110); HEMOLYSIS < 15 (0-50); Potassium 3.2 mmol/L (3.4-5.1); Sodium 137 mmol/L (137-145); Total Protein 7.9 g/dL (6.3-8.2)
[2023-05-28 02:37] LABS: Creatine Kinase 265 U/L (30-135)
--- NOTE | 2023-05-28 03:06 | DI.RAD.S_ITS ---
PROCEDURE: XR HIP W PEL IF DONE RT 2V INDICATIONS: trauma TECHNIQUE: AP pelvis with lateral view of the right hip. COMPARISON: None. FINDINGS: Bones: No acute fractures or dislocations given patient rotation resulting in overlapping osseous structures. Pelvic ring appears intact. No suspicious bony lesions. Degenerative changes are seen to the pubic symphysis and included lumbar spine. Moderate joint space narrowing seen in the right hip with subchondral cystic changes. There is mild to moderate left hip osteoarthrosis. Soft tissues: The visualized bowel gas pattern is normal. No suspicious soft tissue calcifications. IMPRESSION: No acute osseous abnormality. If there is continued clinical concern or persistent symptoms, repeat radiographs or cross-sectional imaging (e.g. CT, MRI) may be helpful for further evaluation. There is no significant discrepancy when compared to the overnight preliminary report. Approved by: Augustus Flowers M.D. on 05/28/2023 at 8:05
--- NOTE | 2023-05-28 04:49 | PC.NURSE ---
At Pts request [facility] and [facility] AOD states they have no bed availability at this time. Ahsan informed Pt and son Ole of the bed status at the [facility]. Pt agreed to admission at [facility]
--- NOTE | 2023-05-28 06:20 | PM.HP.1 ---
History of Present Illness History of Present Illness Chief complaint: GLF Narrative: CC; Ground-level fall with significant pain in the knee 77 years old obese female with a past medical history of lymphedema and recent hospitalization for lower extremity cellulitis for a week at [facility] in first week of may, atrial fibrillation, obstructive sleep apnea, diabetes mellitus type 2 and multiple other medical issues was brought to the emergency room status post ground-level fall in her apartment.? It was a mechanical fall after she lost her balance tripped and fell forward striking her face against a basket of goods on the floor.? Patient was in a kneeling position for about 6 hours before she could alert someone to her presents with significant pain in the left knee due to position on the ground for so long.? Denies any trauma to other parts of her body.? Did have some bleeding from her nose after the fall but not now.? Denies any chest pain or shortness of breath.? Denies any neck pain or tingling numbness.? No loss of consciousness.? In the ED, noted to be saturating in the 90s on room air with a blood pressure of 146/50s.? Labs revealed a white count of 13.8 and a hemoglobin of 10.6.? Electrolytes were fairly unremarkable except for a potassium of 3.2 and a CPK level of 265.? X-ray of the knee is appearing to be negative but there is some irregularity on the left tibial plateau.? X-ray of the hip and CT scan of the head shows no acute process.? Patient had significant gait instability with severe pain and was admitted for further evaluation [facility] Medical History Atrial fibrillation Diarrhea Hyponatremia Laceration of right great toe Obesity (BMI 30-39.9) Obstructive sleep apnea Palpitations Snoring Viral gastroenteritis Surgical History No pertinent past surgical history Family History Family/Other Hypertension Diabetes mellitus Heart disease Alcohol abuse Father Loud snoring Sleep apnea Hypertension Heart disease Depression Alcohol abuse Mother Hypertension Diabetes mellitus Heart disease Depression Family/Other Loud snoring Sleep apnea Insomnia Restless leg Hypertension Diabetes mellitus Heart disease Depression Alcohol abuse Social History Smoking Status: Never smoker Meds Home Medications and Allergies Home Medications Medication Instructions Recorded Confirmed Type Lubricant Eye 1 applic ophthalmic (eye) BEDTIME 09/24/17 02/01/20 History acetaminophen 325 mg tablet 650 mg PO Q4H PRN Pain, Moderate 09/24/17 04/05/20 History apixaban 5 mg tablet 5 mg PO BID 09/24/17 04/05/20 History clobetasol 0.05 % topical ointment 1 applic topical BID PRN Rash 09/24/17 04/05/20 History folic acid 1 mg tablet 1 mg PO DAILY 09/24/17 04/05/20 History magnesium oxide 420 mg tablet 420 mg PO QPM 09/24/17 02/01/20 History vitamins A and D-white 1 applic topical DAILY PRN Dry Skin 09/24/17 04/05/20 History petrolatum-lanolin topical ointment (A and D (willie, pet) topical ointment) cholecalciferol (vitamin D3) 100 4,000 unit PO DAILY 11/05/17 04/05/20 History mcg (4,000 unit) capsule (Vitamin D3) coenzyme Q10 1 cap PO DAILY 11/05/17 02/01/20 History cyanocobalamin (vitamin B-12) 5,000 mcg PO DAILY 11/05/17 04/05/20 History 1,000 mcg tablet multivitamin with minerals 1 cap PO DAILY 11/05/17 04/05/20 History nitroglycerin 0.4 mg sublingual 0.4 mg sublingual Q5-15M PRN Chest 11/05/17 04/05/20 History tablet (Nitrostat) Pain diltiazem HCl 30 mg tablet 15 mg PO BID 04/05/20 04/05/20 History insulin glargine 100 unit/mL 23 unit SUBCUT HS #0 mL 04/05/20 04/05/20 History subcutaneous solution (Lantus U-100 Insulin) lansoprazole 30 mg delayed 30 mg PO DAILY 04/05/20 04/05/20 History release,disintegrating tablet lisinopril 20 mg tablet 40 mg PO QDAY #0 tabs 04/05/20 04/05/20 History tacrolimus 0.1 % topical ointment 1 applic topical DAILY 04/05/20 04/05/20 History torsemide 20 mg tablet 40 mg PO DAILY 04/05/20 04/05/20 History doxycycline hyclate 100 mg tablet 100 mg PO BID #14 tabs 06/21/20 Rx doxycycline hyclate 100 mg capsule 100 mg PO BID #20 caps 02/07/22 Rx hydrocodone 7.5 mg-acetaminophen 2 tab PO Q6H PRN pain #12 tabs 03/13/22 Rx 325 mg tablet Allergies Allergy/AdvReac Type Severity Reaction Status Date / Time adhesive [ADHESIVE] Allergy Mild Verified 09/12/22 17:37 aspirin [ASPIRIN] Allergy Mild Verified 09/12/22 17:37 meperidine [From DEMEROL] Allergy Mild Verified 09/12/22 17:37 metoprolol [METOPROLOL] Allergy Mild Verified 09/12/22 17:37 pioglitazone [From ACTOS] Allergy Mild Verified 09/12/22 17:37 prochlorperazine Allergy Mild Verified 09/12/22 17:37 [From COMPAZINE] rosiglitazone [From AVANDIA] Allergy Mild Verified 09/12/22 17:37 sulfamethoxazole Allergy Mild Verified 09/12/22 17:37 [From BACTRIM] trimethoprim [From BACTRIM] Allergy Mild Verified 09/12/22 17:37 venom-honey bee Allergy Mild Verified 09/12/22 17:37 [BEE VENOM (HONEY BEE)] pseudoephedrine Allergy Unknown Verified 09/12/22 17:37 [From ACTIFED] triprolidine [From ACTIFED] Allergy Unknown Verified 09/12/22 17:37 PORK Allergy Unknown Uncoded 11/05/17 17:49 iv contrast Allergy Uncoded 11/05/17 17:49 Review of Systems Review of Systems Narrative: 12 point of review of system is negative unless otherwise stated in History of present illness Exam Vital Signs (past 8 hours): - 05/28/23 01:08 05/28/23 01:09 05/28/23 01:30 Temperature 98.1 F Pulse Rate 92 H 91 H 91 H Respiratory Rate 15 18 19 Blood Pressure 156/65 H Pulse Oximetry 95 95 97 Oxygen Delivery Method Room Air Oxygen Flow Rate 05/28/23 01:31 05/28/23 01:31 05/28/23 02:00 Temperature Pulse Rate 90 102 H Respiratory Rate 16 20 Blood Pressure 140/56 L Pulse Oximetry 97 Oxygen Delivery Method Oxygen Flow Rate 05/28/23 02:10 05/28/23 02:10 05/28/23 02:30 Temperature Pulse Rate 94 H 77 Respiratory Rate 18 18 Blood Pressure 156/67 H Pulse Oximetry 97 Oxygen Delivery Method Oxygen Flow Rate 05/28/23 02:31 05/28/23 02:31 05/28/23 03:19 Temperature Pulse Rate 76 85 Respiratory Rate 17 Blood Pressure 136/61 Pulse Oximetry 96 98 Oxygen Delivery Method Nasal Cannula Oxygen Flow Rate 2 05/28/23 03:21 05/28/23 03:21 05/28/23 03:30 Temperature Pulse Rate 83 Respiratory Rate 17 Blood Pressure 139/62 134/59 L Pulse Oximetry 100 Oxygen Delivery Method Oxygen Flow Rate 05/28/23 03:30 05/28/23 04:00 05/28/23 04:01 Temperature Pulse Rate 82 84 Respiratory Rate 18 18 Blood Pressure 149/63 H Pulse Oximetry 99 99 Oxygen Delivery Method Oxygen Flow Rate 05/28/23 04:01 05/28/23 04:30 05/28/23 05:03 Temperature Pulse Rate 81 76 78 Respiratory Rate 24 14 22 Blood Pressure Pulse Oximetry 97 92 99 Oxygen Delivery Method Room Air Nasal Cannula Oxygen Flow Rate 2 Oxygen Delivery Method Nasal Cannula Oxygen Flow Rate 2 Narrative Exam Narrative: patient is awake, alert and appear to be in pain Lungs: air entry decreased at base. no Wheeze CVS: S1d2 heard. no S3. functional murmur Extremity: 2-3+ Non pithing edema/ erythema Objective Labs 05/28/23 02:15 05/28/23 02:15 Labs: Laboratory Results - last 24 hr 05/28/23 02:15 WBC 13.8 H RBC 3.87 L Hgb 10.6 L Hct 32.6 L MCV 84.3 MCH 27.4 MCHC 32.5 RDW 14.7 Plt Count 333 Neut % (Auto) 82.6 H Lymph % (Auto) 10.8 L [place] % (Auto) 6.2 Eos % (Auto) 0.1 L Baso % (Auto) 0.3 Neut # (Auto) 95731 H Lymph # (Auto) 1500 [place] # (Auto) 900 Eos # (Auto) 0 Baso # (Auto) 0 Sodium 137 Potassium 3.2 L Chloride 101 Carbon Dioxide 24 BUN 26 H Creatinine 1.15 H Estimated GFR 49 L BUN/Creatinine Ratio 22.6 H Glucose 218 H Calcium 9.6 Total Bilirubin 0.6 AST 26 ALT 14 Alkaline Phosphatase 83 Total Creatine Kinase 265 H Total Protein 7.9 Albumin 4.0 Globulin 3.9 Albumin/Globulin Ratio 1.0 Assessment & Plan Assessment & Plan narrative: 77 years old obese female with a past medical history of lymphedema and recent hospitalization for lower extremity cellulitis for a week at [facility] in first week of may, atrial fibrillation, obstructive sleep apnea, diabetes mellitus type 2 and multiple other medical issues was brought to the emergency room status post ground-level fall in her apartment.? It was a mechanical fall after she lost her balance tripped and fell forward striking her face against a basket of goods on the floor.? Patient was in a kneeling position for about 6 hours before she could alert someone to her presents with significant pain in the left knee due to position on the ground for so long.? Denies any trauma to other parts of her body.? Did have some bleeding from her nose after the fall but not now.? Denies any chest pain or shortness of breath.? Denies any neck pain or tingling numbness.? No loss of consciousness.? In the ED, noted to be saturating in the 90s on room air with a blood pressure of 146/50s.? Labs revealed a white count of 13.8 and a hemoglobin of 10.6.? Electrolytes were fairly unremarkable except for a potassium of 3.2 and a CPK level of 265.? X-ray of the knee is appearing to be negative but there is some irregularity on the left tibial plateau.? X-ray of the hip and CT scan of the head shows no acute process.? Patient had significant gait instability with severe pain and was admitted for further evaluation 1. Knee pain status post fall with gait instability in the setting of significant lymphedema and poor mobility.? Check and treat for any reversible factors including infection/electrolyte imbalance.? X-ray of the knee shows no acute process but preliminary report but a Final report is pending.? Will follow-up with a CT scanof extremity to check for any occult fractures.? Pain control for now and consult physical/Occupational Therapy for further input 2. Hypertension to verify the home medications and resume the home medications including lisinopril.? In the meantime initiate as needed IV hydralazine to keep the systolic under 150? 3. Diabetes mellitus type 2 insulin-dependent.? Verify the home medications including the dose of glargine(42 units hs) and for now watch the blood sugars ACHS with insulin sliding scale.? Check an A1c level. Reports that blood sugars average around 120-140 at home 4 Lymphedema with the suspected cellulitis/stasis dermatitis with recent hospitalization.? Keep the leg elevated and use Bertram wraps.?completed a recent?course of antibiotics. Dose of Torsemide was recently increased. 5 DVT prophylaxis will be with Lovenox 6 Atrial Fibrillation.? Rate control with the home Cardizem and anticoagulation with Eliquis after verification of the home medication 7. Gait instability. Consult physical therapy. Some of it is related to?pain and poor sleep per patient on the right leg. 8. History of Esophageal motility issues: ?lichen planus per patient : need to be on a soft diet Patient will be admitted under observation status Patient was evaluated with video communication device and total time was 25 minutes. Provide location is [place], [place].
[2023-05-28] MEDS: HYDROCODONE/ACET 5/325 TABLET 1 TAB PO ×4 (06:44→21:54)
--- NOTE | 2023-05-28 06:49 | DI.US.S_ITS ---
PROCEDURE: US PERIPH VENOUS LOW EXTREM RT INDICATIONS: EDEMA TECHNIQUE: Real-time imaging, as well as color and pulse Doppler interrogation, were performed of the lower extremity deep veins from the inguinal ligament to the popliteal fossa, with documentation of the visualized calf veins. COMPARISON: [facility] Ultrasound, US, US VENOUS REFLUX DOPPLER BILATERAL, 08/31/2020, 14:00. FINDINGS: The common femoral, femoral, in the popliteal veins are normally compressible, and free of intraluminal thrombus. However, the mid to distal portions of the femoral vein are not well visualized due to patient body habitus. The calf veins are not visualized. Color and pulse Doppler demonstrate normal phasic intraluminal flow. There is normal augmentation response to distal compression maneuver. IMPRESSION: Technically limited exam demonstrates no findings of lower extremity deep venous thrombosis. Approved by: Augustus Flowers M.D. on 05/28/2023 at 7:49
--- NOTE | 2023-05-28 07:34 | P.HP_ITS ---
History of Present Illness History of Present Illness Date Patient Seen: 05/28/23 Date of Onset of Symptoms: 05/28/23 Chief complaint: GLF Narrative: From Night Doctor: 77 years old obese female with a past medical history of lymphedema and recent hospitalization for [facility] first week of may, atrial fibrillation, obstructive sleep apnea, diabetes mellitus type 2 and multiple other medical issues was brought to the emergency room status post ground-level fall in her apartment.? It was a mechanical fall after she lost her balance tripped and fell forward striking her face against a basket of goods on the floor.? Patient was in a kneeling position for about 6 hours before she could alert someone to her presents with significant pain in the left knee due to position on the ground for so long.? Denies any trauma to other parts of her body.? Did have some bleeding from her nose after the fall but not now.? Denies any chest pain or shortness of breath.? Denies any neck pain or tingling numbness.? No loss of consciousness.? In the ED, noted to be saturating in the 90s on room air with a blood pressure of 146/50s.? Labs revealed a white count of 13.8 and a hemoglobin of 10.6.? Electrolytes were fairly unremarkable except for a potassium of 3.2 and a CPK level of 265.? X-ray of the knee is appearing to be negative but there is some irregularity on the left tibial plateau.? X-ray of the hip and CT scan of the head shows no acute process.? Patient had significant gait instability with severe pain and was admitted for further evaluation Additional history: The patient became quite exhausted from working with physical therapy in his sleeping heavily. She apparently had urinary and fecal incontinence as well. I did speak with her daughter for some time her recap her recent admission [facility] the [facility]. She notes that the patient had cellulitis was treated with 2 antibiotics. She also had massive lymphedema and was diuresed. The patient lives in [place] alone but has several brothers in the area. She is 8 children, 2 of whom are in [facility] in 6 of whom are in [place] where they all grew up. She notes that the patient is quite independent but not really leaving the house lately. She has food brought to her by 1 of her brothers. She is unsure if [facility] for [facility] or not. She also recounts the patient falling and being unable to call for assistance. Ultimately the neighbor heard her calling for help and called 911. [facility] Medical History Obesity (BMI 30-39.9) Obstructive sleep apnea Snoring Hyponatremia Atrial fibrillation Palpitations Laceration of right great toe Diarrhea Viral gastroenteritis Surgical History No pertinent past surgical history Family History Family/Other Hypertension Diabetes mellitus Heart disease Alcohol abuse Father Loud snoring Sleep apnea Hypertension Heart disease Depression Alcohol abuse Mother Hypertension Diabetes mellitus Heart disease Depression Family/Other Loud snoring Sleep apnea Insomnia Restless leg Hypertension Diabetes mellitus Heart disease Depression Alcohol abuse Social History household members: children Smoking Status: Never smoker Meds Home Medications and Allergies Home Medications Medication Instructions Recorded Confirmed Type Lubricant Eye 1 applic ophthalmic (eye) BEDTIME 09/24/17 02/01/20 History acetaminophen 325 mg tablet 650 mg PO Q4H PRN Pain, Moderate 09/24/17 04/05/20 History apixaban 5 mg tablet 5 mg PO BID 09/24/17 04/05/20 History clobetasol 0.05 % topical ointment 1 applic topical BID PRN Rash 09/24/17 04/05/20 History folic acid 1 mg tablet 1 mg PO DAILY 09/24/17 04/05/20 History magnesium oxide 420 mg tablet 420 mg PO QPM 09/24/17 02/01/20 History vitamins A and D-white 1 applic topical DAILY PRN Dry Skin 09/24/17 04/05/20 History petrolatum-lanolin topical ointment (A and D (willie, pet) topical ointment) cholecalciferol (vitamin D3) 100 4,000 unit PO DAILY 11/05/17 04/05/20 History mcg (4,000 unit) capsule (Vitamin D3) coenzyme Q10 1 cap PO DAILY 11/05/17 02/01/20 History cyanocobalamin (vitamin B-12) 5,000 mcg PO DAILY 11/05/17 04/05/20 History 1,000 mcg tablet multivitamin with minerals 1 cap PO DAILY 11/05/17 04/05/20 History nitroglycerin 0.4 mg sublingual 0.4 mg sublingual Q5-15M PRN Chest 11/05/17 04/05/20 History tablet (Nitrostat) Pain diltiazem HCl 30 mg tablet 15 mg PO BID 04/05/20 04/05/20 History insulin glargine 100 unit/mL 23 unit SUBCUT HS #0 mL 04/05/20 04/05/20 History subcutaneous solution (Lantus U-100 Insulin) lansoprazole 30 mg delayed 30 mg PO DAILY 04/05/20 04/05/20 History release,disintegrating tablet lisinopril 20 mg tablet 40 mg PO QDAY #0 tabs 04/05/20 04/05/20 History tacrolimus 0.1 % topical ointment 1 applic topical DAILY 04/05/20 04/05/20 History torsemide 20 mg tablet 40 mg PO DAILY 04/05/20 04/05/20 History doxycycline hyclate 100 mg tablet 100 mg PO BID #14 tabs 06/21/20 Rx doxycycline hyclate 100 mg capsule 100 mg PO BID #20 caps 02/07/22 Rx hydrocodone 7.5 mg-acetaminophen 2 tab PO Q6H PRN pain #12 tabs 03/13/22 Rx 325 mg tablet Allergies Allergy/AdvReac Type Severity Reaction Status Date / Time adhesive [ADHESIVE] Allergy Mild Verified 09/12/22 17:37 aspirin [ASPIRIN] Allergy Mild Verified 09/12/22 17:37 meperidine [From DEMEROL] Allergy Mild Verified 09/12/22 17:37 metoprolol [METOPROLOL] Allergy Mild Verified 09/12/22 17:37 pioglitazone [From ACTOS] Allergy Mild Verified 09/12/22 17:37 prochlorperazine Allergy Mild Verified 09/12/22 17:37 [From COMPAZINE] rosiglitazone [From AVANDIA] Allergy Mild Verified 09/12/22 17:37 sulfamethoxazole Allergy Mild Verified 09/12/22 17:37 [From BACTRIM] trimethoprim [From BACTRIM] Allergy Mild Verified 09/12/22 17:37 venom-honey bee Allergy Mild Verified 09/12/22 17:37 [BEE VENOM (HONEY BEE)] pseudoephedrine Allergy Unknown Verified 09/12/22 17:37 [From ACTIFED] triprolidine [From ACTIFED] Allergy Unknown Verified 09/12/22 17:37 PORK Allergy Unknown Uncoded 11/05/17 17:49 iv contrast Allergy Uncoded 11/05/17 17:49 Review of Systems Review of Systems Narrative: All else reviewed and otherwise unremarkable. Exam Vital Signs (past 8 hours): - 05/28/23 01:08 05/28/23 01:09 05/28/23 01:30 Temperature 98.1 F Pulse Rate 92 H 91 H 91 H Respiratory Rate 15 18 19 Blood Pressure 156/65 H Pulse Oximetry 95 95 97 Oxygen Delivery Method Room Air Oxygen Flow Rate 05/28/23 01:31 05/28/23 01:31 05/28/23 02:00 Temperature Pulse Rate 90 102 H Respiratory Rate 16 20 Blood Pressure 140/56 L Pulse Oximetry 97 Oxygen Delivery Method Oxygen Flow Rate 05/28/23 02:10 05/28/23 02:10 05/28/23 02:30 Temperature Pulse Rate 94 H 77 Respiratory Rate 18 18 Blood Pressure 156/67 H Pulse Oximetry 97 Oxygen Delivery Method Oxygen Flow Rate 05/28/23 02:31 05/28/23 02:31 05/28/23 03:19 Temperature Pulse Rate 76 85 Respiratory Rate 17 Blood Pressure 136/61 Pulse Oximetry 96 98 Oxygen Delivery Method Nasal Cannula Oxygen Flow Rate 2 05/28/23 03:21 05/28/23 03:21 05/28/23 03:30 Temperature Pulse Rate 83 Respiratory Rate 17 Blood Pressure 139/62 134/59 L Pulse Oximetry 100 Oxygen Delivery Method Oxygen Flow Rate 05/28/23 03:30 05/28/23 04:00 05/28/23 04:01 Temperature Pulse Rate 82 84 Respiratory Rate 18 18 Blood Pressure 149/63 H Pulse Oximetry 99 99 Oxygen Delivery Method Oxygen Flow Rate 05/28/23 04:01 05/28/23 04:30 05/28/23 05:03 Temperature Pulse Rate 81 76 78 Respiratory Rate 24 14 22 Blood Pressure Pulse Oximetry 97 92 99 Oxygen Delivery Method Room Air Nasal Cannula Oxygen Flow Rate 2 05/28/23 06:00 Temperature 98.9 F Pulse Rate 75 Respiratory Rate 19 Blood Pressure 169/60 H Pulse Oximetry 100 Oxygen Delivery Method Oxygen Flow Rate 2 Oxygen Delivery Method Nasal Cannula Oxygen Flow Rate 2 Narrative Exam Narrative: NAD, Normocephalic skull. No facial droop. Neck is supple, normal trachea. Lungs are clear, normal effort. Heart is regular with a 3/6 systolic murmur at the left sternal base. Abdomen is distended and nontender. Extremities are red and notable for 1 to 2+ edema. No joint swelling or deformity. Other than legs being read the rest of the skin is fairly normal. She is morbidly obese, BMI is 40.2. Objective Labs 05/28/23 08:16 05/28/23 08:16 Labs: Laboratory Results - last 24 hr 05/28/23 02:15 WBC 13.8 H RBC 3.87 L Hgb 10.6 L Hct 32.6 L MCV 84.3 MCH 27.4 MCHC 32.5 RDW 14.7 Plt Count 333 Neut % (Auto) 82.6 H Lymph % (Auto) 10.8 L [place] % (Auto) 6.2 Eos % (Auto) 0.1 L Baso % (Auto) 0.3 Neut # (Auto) 84158 H Lymph # (Auto) 1500 [place] # (Auto) 900 Eos # (Auto) 0 Baso # (Auto) 0 Sodium 137 Potassium 3.2 L Chloride 101 Carbon Dioxide 24 BUN 26 H Creatinine 1.15 H Estimated GFR 49 L BUN/Creatinine Ratio 22.6 H Glucose 218 H Calcium 9.6 Total Bilirubin 0.6 AST 26 ALT 14 Alkaline Phosphatase 83 Total Creatine Kinase 265 H Total Protein 7.9 Albumin 4.0 Globulin 3.9 Albumin/Globulin Ratio 1.0 Assessment & Plan Assessment & Plan narrative: 77 years old obese female with a past medical history of lymphedema and recent hospitalization for lower extremity cellulitis for a week at [facility] in first week of may, atrial fibrillation, obstructive sleep apnea, diabetes mellitus type 2 and multiple other medical issues was brought to the emergency room status post ground-level fall in her apartment.? 1. Knee pain status post fall with gait instability in the setting of significant lymphedema and poor mobility.? Check and treat for any reversible factors including infection/electrolyte imbalance.? X-ray of the knee shows no acute process but preliminary report but a Final report is pending.? Will follow-up with a CT scan of extremity to check for any occult fractures.? Pain control for now and consult physical/Occupational Therapy for further input -we will continue to assess with PT and OT. I suspect she will require longterm facility rehabilitation stay. 2. Hypertension to verify the home medications and resume the home medications including lisinopril.? In the meantime initiate as needed IV hydralazine to keep the systolic under 150? -we will monitor her blood pressure and titrate medications if needed. 3. Diabetes mellitus type 2 insulin-dependent.? Verify the home medications including the dose of glargine(42 units hs) and for now watch the blood sugars ACHS with insulin sliding scale.? Check an A1c level. Reports that blood sugars average around 120-140 at home -continue the current insulin regimen and monitor. 4 Lymphedema with the suspected cellulitis/stasis dermatitis with recent hospitalization.? Keep the leg elevated and use Bertram wraps.?completed a recent?course of antibiotics. Dose of Torsemide was recently increased. -monitor redness and swelling. 5 DVT prophylaxis will be with Lovenox 6 Atrial Fibrillation.? Rate control with the home Cardizem and anticoagulation with Eliquis after verification of the home medication -this appears stable on current medications. 7. Gait instability. Consult physical therapy. Some of it is related to?pain and poor sleep per patient on the right leg. 8. History of Esophageal motility issues: ?lichen planus per patient : need to be on a soft diet Patient will be admitted under observation status, expect 2 [place] of hospital services. Assessment on May 28 indicate that she is really unable to walk and with her walker independently. Time Spent With Patient Time with patient: 30 to 49 minutes with 50% spent counseling/coordinating care Quality MIPS - Admit I confirm the patient?s Advance Care Plan is present, Code status is documented, Surrogate decision maker is in patient?s record [If Yes, STOP here]: Yes MIPS - Meds 'Current medications' to include all prescriptions, [id number] products, herbals, cannabis/cannabidiol products, and vitamin/mineral/dietary (nutritional) supplements. I have utilized all available resources to obtain, update, or review the patient?s current medications. [If Yes, STOP here]: Yes
[2023-05-28 08:25] LABS: Add Manual Diff / Slide Review NO; Basophils Absolute Auto 0 /uL (0-100); Basophils Percent Auto 0.4 % (0-2); Eosinophils Absolute Auto 0 /uL (0-450); Eosinophils Percent Auto 0.1 % (2-4); Hemoglobin 10.5 g/dL (12.0-16.0); Lymphocytes Absolute Auto 1900 /uL (1100-4500); Lymphocytes Percent Auto 16.1 % (25-40); Mean Corpuscular HGB Conc 32.7 % (30-36); Mean Corpuscular Hemoglobin 27.7 PG (26-34); Mean Corpuscular Volume 84.5 fL (80-100); Monocytes Absolute Auto 900 /uL (0-900); Monocytes Percent Auto 7.3 % (3-14); Neutrophils Absolute Auto 9100 /uL (1500-7000); Neutrophils Percent Auto 76.1 % (50-75); Platelet Count 288 X10^3/uL (150-400); Red Blood Cell Count 3.78 X10^6/uL (4.0-5.2); Red Cell Distribution Width 14.9 % (11.6-14.8)
[2023-05-28 08:35] LABS: Alanine Aminotransferase 13 IU/L (<35); Albumin 3.4 g/dL (3.5-5.0); Alkaline Phosphatase 69 U/L (38-126); Aspartate Aminotransferase 28 IU/L (14-36); BUN Creatinine Ratio 23.3 (6-22); Bilirubin Total 0.6 mg/dL (0.2-1.3); Blood Urea Nitrogen 24 mg/dL (7-17); Carbon Dioxide 27 mmol/L (22-32); Chloride 102 mmol/L (98-107); Creatine Kinase 357 U/L (30-135); Estimated Glomerular Filt Rate 56 mL/min (>60); Globulin 3.5 g/dL (1.7-4.1); Glucose 162 mg/dL (80-110); HEMOLYSIS < 15 (0-50); Potassium 3.6 mmol/L (3.4-5.1); Sodium 138 mmol/L (137-145); Total Protein 6.9 g/dL (6.3-8.2)
[2023-05-28] MEDS: INSULIN LISPRO 100 UNIT/ML 3ML VIAL SUBCUT ×4 (09:47→21:54)
[2023-05-28] MEDS: POTASSIUM CHLORIDE 20 MEQ/15 ML UDC PO (09:51)
--- NOTE | 2023-05-28 12:00 | PT.IIE ---
Current Diagnoses Cellulitis, unspecified (05/28/23) Surgical History (Last Reviewed 05/28/23 @ 07:35 by Lencho Patino MD) No pertinent past surgical history Medical History (Last Reviewed 05/28/23 @ 07:35 by Lencho Patino MD) Atrial fibrillation Diarrhea Hyponatremia Laceration of right great toe Obesity (BMI 30-39.9) Obstructive sleep apnea Palpitations Snoring Viral gastroenteritis Physical Therapy Inpatient Evaluation/Re-Eval M1 PT/OT-IP Prior Functional Status Start: 05/28/23 14:41 Freq: NEEDED Status: Active Protocol: Document 05/28/23 12:00 AB (Rec: 05/28/23 14:54 AB [id number]) Medical Review Prior Functional Status Medical History Reviewed Yes Communication able to make needs known Mobility and Gait pt stated that she was modified independent with all mobilities and ambulation with 4WW Social History Household Members none Living Arrangements Apartment/Condo Number of Floors (Floors) One Floor Number of Stairs To Enter/Railing? no steps to enter Home Environment Standard Height Toilet,Tub/ Shower Home Equipment Four Wheel Walker,Grab Bars In Shower Additional Social History Comment pt has a recliner that she can sleep on if needed pt has her neighbors/friends to do grocery shopping for her M2 PT-IP Current Condition Start: 05/28/23 14:41 Freq: NEEDED Status: Active Protocol: Document 05/28/23 12:00 AB (Rec: 05/28/23 14:54 AB [id number]) Physical Therapy Current Condition Current Condition Evaluation Date 05/28/23 Treatment Diagnosis GLF; difficulty in walking Onset Date 05/28/23 M3 PT-IP Subjective Start: 05/28/23 14:41 Freq: NEEDED Status: Active Protocol: Document 05/28/23 12:00 AB (Rec: 05/28/23 14:54 AB [id number]) Subjective Physical Therapy Visit Type Type Initial Evaluation Visit Start Time 12:00 Visit Stop Time 12:30 Number of DENTAL ASSISTING INSTRUCTOR Visits 0 Physical Therapy Visit Comments Patient Comments agreeable to do PT Therapy Pain Assessment Location Abdomen Scale Used pain scale not stated Pain Management Techniques Distraction,Modification of Treatment,Re-positioning, Timing of Activity with Medications M4 PT-IP Mobility and Gait Start: 05/28/23 14:41 Freq: NEEDED Status: Active Protocol: Document 05/28/23 12:00 AB (Rec: 05/28/23 14:54 AB [id number]) PT-Bed Mobility Assessment Supine to Sit Supine to Sit Maximum Assistance,2 Person Assistance,Head of Bed Elevated,Bedrails PT-Transfer Assessment Sit to and From Stand Sit to and from Stand Maximum Assistance,2 Person Assistance,Use of Upper Extremities Equipment Transfer Assistive Device Gait Belt,Front Wheeled Walker Orthotic/Prosthetic Devices or Brace: No Transfers Transfer Destination Bedside Commode Transfer Technique Stand Step Pivot Transfer Ability Level of Assist Maximum Assistance,1 Person Assistance,2 Person Assistance ,Use of Upper Extremities Comments Mobility Comments pt supine in bed and family in room. obtained PLOF and home set up from pt. O2 sat with 3L O2: 100%. asked nurse if PT can take O2 off and agreed. O2 sat at RA: 98-100%. pt with lymphedema and sensitive LE to touch. completed supine to sit with HOB elevated max A x 2 and max cues. total A for scooting to EOB. pt completed sit to stand max A x 2 and max cues and stated that she started voiding and doing BM. bedside commode positioned next to pt and pt completed step transfer using FWW max A x 1-2 and max cues. pt needing to use the commode for a while. Left pt with NAC to assist. PT-Balance Assessment Sitting Balance and Reactions Static Sitting Balance Ability Good Dynamic Sitting Balance Ability Fair Standing Balance and Reactions Static Standing Balance Ability Poor Dynamic Standing Balance Ability Poor Device Used FWW M5 PT-IP Objective Assessments Start: 05/28/23 14:41 Freq: NEEDED Status: Active Protocol: Document 05/28/23 12:00 AB (Rec: 05/28/23 14:54 [id number]) Orientation Orientation/Cognition Level of Alertness Alert Orientation Name,Place,Situation Safety Awareness Decreased Safety Awareness Memory Description Short Term Impaired Strength Lower Extremity Strength Assessment Bilaterally Impaired Hip 3-/5 Knee 3+/5 Ankle 3+/5 Muscle Tone Muscle Tone WNL Yes M6 PT-IP Treatment Start: 05/28/23 14:41 Freq: NEEDED Status: Active Protocol: Document 05/28/23 12:00 AB (Rec: 05/28/23 14:54 [id number]) Physical Therapy Treatment Education Education Provided Safety M7 PT-IP Assessment and Plan Start: 05/28/23 14:41 Freq: NEEDED Status: Active Protocol: Document 05/28/23 12:00 AB (Rec: 05/28/23 14:54 AB [id number]) PT Summary Assessment and Plan Potential Rehabilitation Potential Fair Status of Condition at Evaluation Evolving Summary Impairments Pain,ROM,Strength,Balance, Coordination,Sensation,Tone, Cognition,Bed Mobility, Transfers,Gait,Activity Tolerance Assessment Summary pt is a 77 y/o F who presented to the ED after a GLF and unable to stand and ambulate due to L knee pain. pt did not complain of knee pain today but c/o abdominal pain and pt stated that this is because of her inability to void. pt requiring max A x 2 with mobility and will require SNF rehab to improve overall strength and function. will continue to assess. Goals Bed Mobility Goal Minimal Assistance Transfer Goal Minimal Assistance,Front Wheeled Walker Gait Goal Minimal Assistance,Front Wheel Walker Gait Distance 50 Other Goals improve bed mobility, transfers, ambulation using 4WW 150 ft SBA Days to Meet Goals 10 Frequency of Treatment Frequency Of Treatment Once a Day Treatment Plan Physical Therapy Treatment Plan Bed Mobility Training,Transfer Training,Gait Training, Therapeutic Exercise,Balance Retraining,Discharge Planning, Hot or Cold Pack,Neuromuscular Re-ed,Coordination Retraining ,Manual Therapy Precautions Other Precautions falls Recommendations To Nursing Amount of Assist Needed 2 Person Assist Discharge Recommendations PT Discharge Recommendations SNF Rehab Transportation Needs at Discharge Wheelchair/Cabulance
--- NOTE | 2023-05-28 13:41 | ST.IPCSEOM ---
Visit Care Team Role Provider Type Geri Herrera MD Primary Care Provider Non-Staff Specialty: Medical Address: [address] [place] [address], [address] Email: German Solomon MD Emergency Provider Physician Referring Provider Specialty: Emergency Medicine Address: [address] [place] [address], [id number] Fax: Email: [email or web address] Admit Provider Physician Attending Provider Specialty: Internal Medicine Address: [address] [place] [address], [id number] Fax: Email: Current Diagnoses Cellulitis, unspecified (05/28/23) Past Medical History (Last Reviewed 05/28/23 @ 07:35 by Lencho Patino MD) Atrial fibrillation (Medical) Diarrhea (Medical) Hyponatremia (Medical) Laceration of right great toe (Medical) Obesity (BMI 30-39.9) (Medical) Obstructive sleep apnea (Medical) Palpitations (Medical) Snoring (Medical) Viral gastroenteritis (Medical) Speech-Language Pathology Swallow Evaluation PATTERN FILER Clinical Swallow Evaluation Start: 05/28/23 13:31 Freq: Status: Active Protocol: Document 05/28/23 13:34 CG (Rec: 05/28/23 13:41 CG [id number]) Clinical Swallow Evaluation Session Time Visit Start Time 13:00 Visit Stop Time 13:35 Total Visit Minutes 35 Visit Information Visit Number 1 Referral Referring Provider Sukumar (Hospitalist) Reason for Referral hx dysphagia, modified diet Setting Assessment Location Acute Care Visit Type Note Type Initial evaluation Next Note Type Next Note Type Discharge Summary Patient Information Identification Type Name History 77 years old obese female with a past medical history of lymphedema and recent hospitalization for lower extremity cellulitis for a week at [facility] in first week of may, atrial fibrillation, obstructive sleep apnea, diabetes mellitus type 2 and multiple other medical issues was brought to the emergency room status post ground-level fall in her apartment.? It was a mechanical fall after she lost her balance tripped and fell forward striking her face against a basket of goods on the floor.? Patient was in a kneeling position for about 6 hours before she could alert someone to her presents with significant pain in the left knee due to position on the ground for so long.? Denies any trauma to other parts of her body.? Did have some bleeding from her nose after the fall but not now.? Denies any chest pain or shortness of breath.? Denies any neck pain or tingling numbness.? No loss of consciousness.? In the ED, noted to be saturating in the 90s on room air with a blood pressure of 146/50s.? Labs revealed a white count of 13.8 and a hemoglobin of 10.6 .? Electrolytes were fairly unremarkable except for a potassium of 3.2 and a CPK level of 265.? X-ray of the knee is appearing to be negative but there is some irregularity on the left tibial plateau.? X-ray of the hip and CT scan of the head shows no acute process.? Patient had significant gait instability with severe pain and was admitted for further evaluation. Nursing reports that the pt was previously on a modified diet and was demonstrating increased weakness; requested ST eval to determine safest diet. Subjective Observations Pt was seated partially reclined in bed upon ST entry to room. She was alert, oriented, cooperative. She was able to express needs ( pillows for positioning) and recall history of dysphagia. Pt reported history of esophageal strictures ( multiple). She was in the process of having the strictures stretched, but doing so caused flaring of lichen planus, which is an ongoing concern. She states that he has to eat very slowly , sitting upright, and with limited distractions. She often purees her food or eats other soft foods that are easy to chew. Reported by Patient/Caregiver Other Symptoms Food gets stuck Current Diet Pureed (IDDSI 4) Baseline Feeding Method Independent in self-feeding The IDDSI Framework Protocol: IDDSI.1 Objective Assessment Mental Status Alert,Responsive,Cooperative Oral Integrity Sores/Lesions Dentition Decay Lip Function Within normal limits Tongue Function Within normal limits Tongue Protrusion Within normal limits Tongue Lateralization Within normal limits Jaw Function Within normal limits Jaw Opening Within normal limits Jaw Closing Within normal limits Jaw Lateralization Within normal limits Jaw Protrusion Within normal limits Comment OME unremarkable aside from significant dental decay and oral lesions 2/lichen planus. Food and Liquid Trials Position During Assessment Upright (90 degrees) Liquids Trialed Thin (IDDSI 0) Solid Trials Purred (IDDSI 4) Oral Impairment Within functional limits Pharyngeal Impairment Within functional limits Results Pt did not present with overt s/sx aspiration on trials thin or puree. Pt consumes puree at baseline; recommend continue puree 2/ esophageal strictures. The IDDSI Framework Protocol: IDDSI.1 Findings Swallowing Function Other dysphagia Swallowing Function Comments Pt with esophageal dysphagia/ esophageal strictures Severity of Swallow Impairment Moderately impaired Prognosis Fair Impact on Safety and Functioning Risk for inadequate nutrition/ hydration Recommendations Instrumental Assessment No Swallowing Treatment No Recommended Solids Pureed (IDDSI 4) Recommended Liquids Thin (IDDSI 0) Safety Precautions/Swallowing Remain upright (90 degrees) Recommendations during all oral intake,Upright position at least 30 minutes after meals,Small bites and sips when eating,Slow rate; swallow between bites,Strict oral care after intake Medication Recommendations As Tolerated,Crushed in Carrier Discharge Recommendations back line cook care facility Referrals Recommended Referrals Gastroenterology Education Patient/Caregiver Education Described results of evaluation,Patient expressed understanding of evaluation
--- NOTE | 2023-05-28 14:19 | CM.DANOTE ---
Addendum entered by EZEQUIEL Adair 05/28/23 14:29: ADD: Patient is OBS which may limit SNF options. Will need SNF [facility] with [facility] vs private payment; MCR A benefit will not assist in SNF placement if she remains OBS. Original Note: Initial DCP Assessment Note Pt is a 77 yo female, has an apt at the [facility] , presents after GLF and admitted OBS for work up and therapy evals. Currently, therapies recommending SNF as patient lives alone, had been walking with walker according to PT and now requiring 2 person assist. Patient has [employer] listed as her insurance, no other insurance listed; unsure if patient has MCR. PCP: Geri Herrera [place]ayer: [facility] [employer] Attempted initial assessment with patient, grand daughter at bedside, patient sleeping soundly. Granddaughter reports her aunt is getting some of patient's things from her apt and will be back shortly. Unsure who DPOA is (?) According to granddaughter, patient is a proud and private person, a [place], who does not accept help easily. Patient lives with chronic pain and often has difficulty sleeping. Granddaughter reports patient has not slept well if at all for 3 days. Allowed patient to sleep at this time. CM team following closely for assessment of need and coordination of discharge plan. Need to discuss therapy recs and dispo options with patient who is A+Ox4. EZEQUIEL Burnett Discharge Planning/Care Management CM Discharge Assessment Start: 05/28/23 14:15 Freq: Status: Active Protocol: Document 05/28/23 14:16 BOB (Rec: 05/28/23 14:19 BOB [id number]) Discharge Planning Assessment Assigned High Voltage Electrician EZEQUIEL Merchant DPOA/Assigned Designee Name brother Tapia Contact Information [phone] Advance Directives? No History Provided By Family Member,Medical Record Prior Living Arrangements Apartment/Condo Household Members children Type of transporation used prior to Relies on Others admit Independent with ADL's No Is patient alert and oriented? Yes Barriers to Discharge Yes Comment Therapies recommending SNF Transportation Arrangement TBD
--- NOTE | 2023-05-28 16:02 | OT.IPNOTE ---
Attempted to see pt but asleep. Prior pt needing 2 person assist for all needs. Able to talk to pt's granddaughter for prior level of care. No charge
[2023-05-28 22:03] LABS: Appearance Urine UA CLEAR; Bilirubin Urine UA NEGATIVE (NEGATIVE); Color Urine UA YELLOW; Glucose Urine UA NEGATIVE (Negative); Ketones Urine UA NEGATIVE (NEGATIVE); Leukocyte Esterase Urine UA 1+ (NEGATIVE); Nitrite Urine UA NEGATIVE (Negative); Occult Blood Urine UA TRACE-INTACT (Negative); Protein Urine UA NEGATIVE (Negative); Specific Gravity Urine UA <=1.005 (1.000-1.035); Urobilinogen Urine UA 0.2 E.U./dL (0.2)
[2023-05-28 22:15] LABS: pH Urine UA 6.5 (4.5-8.0)
[2023-05-28 22:22] LABS: Bacteria Urine Few (2-10); Culture Indicated Urine Specimen Cultured; RBC Urine 1-5/HPF (0-5/HPF); Squamous Epithelial Cell Urine 0-1 /HPF (0-5/HPF); Urine Volume 10mL (spun); WBC Urine 5-10/HPF (0-5/HPF)
[2023-05-29] VITALS (9 sets, daily range): BP systolic 112–146; BP diastolic 31–51; PULSE 61–74; RESP 16–18; TEMP 36.3–37.1; O2SAT 93–97
[2023-05-29] MEDS: HYDROCODONE/ACET 5/325 TABLET 1 TAB PO ×4 (02:22→14:15)
--- NOTE | 2023-05-29 07:50 | PM.PN.1 ---
Subjective Subjective Interval history: Doing better today. No knee pain. No chest pain or dyspnea. Exam Vital Signs (past 8 hours): - 05/29/23 02:41 05/29/23 05:21 Temperature 97.8 F 97.9 F Pulse Rate 72 74 Respiratory Rate 16 17 Blood Pressure 146/48 H 136/42 L Pulse Oximetry 97 95 Oxygen Flow Rate 0 0 Oxygen Delivery Method Room Air Oxygen Flow Rate 0 Narrative Exam Narrative: NAD, fluent speech Lungs clear with normal effort CV regular and without murmur Abdomen non distended 1+ leg edema Objective Labs 05/29/23 12:20 05/29/23 12:20 Labs: Laboratory Results - last 24 hr 05/28/23 05/28/23 08:16 21:05 WBC 12.0 H RBC 3.78 L Hgb 10.5 L Hct 32.0 L MCV 84.5 MCH 27.7 MCHC 32.7 RDW 14.9 H Plt Count 288 Neut % (Auto) 76.1 H Lymph % (Auto) 16.1 L [place] % (Auto) 7.3 Eos % (Auto) 0.1 L Baso % (Auto) 0.4 Neut # (Auto) 9100 H Lymph # (Auto) 1900 [place] # (Auto) 900 Eos # (Auto) 0 Baso # (Auto) 0 Sodium 138 Potassium 3.6 Chloride 102 Carbon Dioxide 27 BUN 24 H Creatinine 1.03 Estimated GFR 56 L BUN/Creatinine Ratio 23.3 H Glucose 162 H Calcium 9.0 Total Bilirubin 0.6 AST 28 ALT 13 Alkaline Phosphatase 69 Total Creatine Kinase 357 H Total Protein 6.9 Albumin 3.4 L Globulin 3.5 Albumin/Globulin Ratio 1.0 Urine Color Yellow Urine Appearance Clear Urine pH 6.5 Ur Specific [place] <=1.005 Urine Protein Negative Urine Glucose (UA) Negative Urine Ketones Negative Urine Occult Blood Trace-intact Urine Nitrate Negative Urine Bilirubin Negative Urine Urobilinogen 0.2 Ur Leukocyte Esterase 1+ H Urine RBC 1-5/hpf Urine WBC 5-10/hpf H Ur Squamous Epith Cells 0-1 /hpf Urine Bacteria Few (2-10) H Ur Culture Indicated? Specimen cultured Vol Urine Centrifuged 10ml (spun) [facility] Medical History Obesity (BMI 30-39.9) Obstructive sleep apnea Snoring Hyponatremia Atrial fibrillation Palpitations Laceration of right great toe Diarrhea Viral gastroenteritis Surgical History No pertinent past surgical history Family History Family/Other Hypertension Diabetes mellitus Heart disease Alcohol abuse Father Loud snoring Sleep apnea Hypertension Heart disease Depression Alcohol abuse Mother Hypertension Diabetes mellitus Heart disease Depression Family/Other Loud snoring Sleep apnea Insomnia Restless leg Hypertension Diabetes mellitus Heart disease Depression Alcohol abuse Social History household members: children Smoking Status: Never smoker Assessment & Plan Assessment & Plan narrative: 1. Knee pain status post fall with gait instability in the setting of significant lymphedema and poor mobility.? Improved. 2. Hypertension, present on admission and stable. 3. Diabetes mellitus type 2 insulin-dependent.? Present on admission and active. -decrease Lantus to 10 units AM. 4. Lymphedema with the suspected cellulitis/stasis dermatitis with recent hospitalization.? Present on admission on active. -Keep the leg elevated and use Bertram wraps.?completed a recent?course of antibiotics. Dose of Torsemide was recently increased. -monitor redness and swelling. 5. Atrial Fibrillation.? Present on admission and stable. -Rate control with the home Cardizem and anticoagulation with Eliquis after verification of the home medication -this appears stable on current medications. 6. Gait instability. Consult physical therapy. Some of it is related to?pain and poor sleep per patient on the right leg. 7. History of Esophageal motility issues: Stable. -lichen planus per patient : need to be on a soft diet 8. Severe debilitation, present on admission and active. -PT/OT suggests SNF rehab. DVT prophylaxis will be with Lovenox Time Spent With Patient Time with patient: 30 to 49 minutes with 50% spent counseling/coordinating care Quality VTE Deep Vein Thrombosis/Pulmonary Embolism Present on Admission: No
[2023-05-29] MEDS: APIXABAN 5 MG TABLET PO ×2 (09:23→20:45)
[2023-05-29] MEDS: TORSEMIDE 10 MG TABLET 40 MG PO (09:23)
[2023-05-29] MEDS: CHOLECALCIFEROL (VITAMIN D3) 1,000 UNIT TABLET 4000 UNIT PO (09:23)
[2023-05-29] MEDS: SODIUM CHLORIDE 0.9% 500 ML 1000 ML IV (11:12)
[2023-05-29] MEDS: INSULIN LISPRO 100 UNIT/ML 3ML VIAL SUBCUT ×3 (12:08→20:48)
[2023-05-29 12:31] LABS: Hematocrit 29.9 % (36-46); Hemoglobin 9.8 g/dL (12.0-16.0); Mean Corpuscular HGB Conc 32.8 % (30-36); Mean Corpuscular Hemoglobin 27.8 PG (26-34); Mean Corpuscular Volume 84.8 fL (80-100); Platelet Count 261 X10^3/uL (150-400); Red Blood Cell Count 3.52 X10^6/uL (4.0-5.2); Red Cell Distribution Width 14.8 % (11.6-14.8); White Blood Cell Count 9.1 X10^3/uL (4.5-11.0)
[2023-05-29 12:50] LABS: Alanine Aminotransferase 14 IU/L (<35); Albumin 3.3 g/dL (3.5-5.0); Albumin Globulin Ratio 0.9 (1.0-2.8); Alkaline Phosphatase 70 U/L (38-126); Aspartate Aminotransferase 28 IU/L (14-36); BUN Creatinine Ratio 17.5 (6-22); Bilirubin Total 0.6 mg/dL (0.2-1.3); Blood Urea Nitrogen 17 mg/dL (7-17); Calcium 8.8 mg/dL (8.4-10.2); Carbon Dioxide 30 mmol/L (22-32); Chloride 102 mmol/L (98-107); Estimated Glomerular Filt Rate 60 mL/min (>60); Globulin 3.5 g/dL (1.7-4.1); Glucose 185 mg/dL (80-110); HEMOLYSIS < 15 (0-50); Potassium 3.7 mmol/L (3.4-5.1); Sodium 138 mmol/L (137-145); Total Protein 6.8 g/dL (6.3-8.2)
--- NOTE | 2023-05-29 13:05 | PT.IPTN ---
Current Diagnoses Cellulitis, unspecified (05/28/23) Physical Therapy Treatment Note M2 PT-IP Current Condition Start: 05/28/23 14:41 Freq: NEEDED Status: Active Protocol: Document 05/28/23 12:00 AB (Rec: 05/28/23 14:54 AB [id number]) Physical Therapy Current Condition Current Condition Evaluation Date 05/28/23 Treatment Diagnosis GLF; difficulty in walking Onset Date 05/28/23 M3 PT-IP Subjective Start: 05/28/23 14:41 Freq: NEEDED Status: Active Protocol: Document 05/29/23 13:59 TS (Rec: 05/29/23 14:14 TS [id number]) Subjective Physical Therapy Visit Type Type Treatment Note Visit Start Time 13:05 Visit Stop Time 13:30 Number of LITHOGRAPHIC PRESS FEEDER Visits 1 Physical Therapy Visit Comments Patient Comments Pt found resting in chair, family in room, pt agreeable to PT. M4 PT-IP Mobility and Gait Start: 05/28/23 14:41 Freq: NEEDED Status: Active Protocol: Document 05/29/23 13:59 TS (Rec: 05/29/23 14:14 TS [id number]) PT-Bed Mobility Assessment Supine to Sit Supine to Sit Moderate Assistance,1 Person Assistance,Bedrails Sit to Supine Sit to Supine Moderate Assistance,1 Person Assistance,Bedrails Scooting Scooting to Edge of Bed Maximum Assistance PT-Transfer Assessment Sit to and From Stand Sit to and from Stand Minimal Assistance,1 Person Assistance,Use of Upper Extremities Equipment Transfer Assistive Device Gait Belt,Front Wheeled Walker Orthotic/Prosthetic Devices or Brace: No Comments Mobility Comments STS from chair with FWW Ellie for posterior lean, pt required cues for pushing from arms of chair. She ambulated to bed ~5' CGA/Ellie for balance and FWW management. pt sat on EOB, required cues for rails. Sit to supine into bed ModA for LEs into bed. Si to supine to EOB ModA with FRONT DESK AUXILIARY and rails to upright trunk into sitting position. STS from bed Ellie with FWW, required holding of FWW down due to pt pulling heavily to stand. She ambulated ~75' in hallway CGA, pt is unsteady and sways when ambulating. Pt ambulated back to room and required standing resting break at sink. Pt was left with OT in room for continued treatment. Gait Assessment Gait Gait Assistance Required: Contact Guard Assist,1 Person Assist Distance (Feet) 75 Assistive Devices Assistive Device Front Wheeled Walker Orthotic/Prosthetic Devices or Brace: Yes Gait Deviations General Gait Pattern Antalgic,Decreased Stride Length,Decreased Feet Clearance,Flexed Trunk,Wide Based Gait Factors Limiting Gait Function Factors Limiting Gait Function Decreased Activity Tolerance, Decreased Strength, Incoordination,Limited Range of Motion,Pain,Poor Balance, Poor Safety Awareness Comments Gait Comments See mobility comments PT-Balance Assessment Sitting Balance and Reactions Static Sitting Balance Ability Good Dynamic Sitting Balance Ability Fair Standing Balance and Reactions Static Standing Balance Ability Fair Dynamic Standing Balance Ability Fair Device Used FWW M5 PT-IP Objective Assessments Start: 05/28/23 14:41 Freq: NEEDED Status: Active Protocol: Document 05/28/23 12:00 AB (Rec: 05/28/23 14:54 AB [id number]) Orientation Orientation/Cognition Level of Alertness Alert Orientation Name,Place,Situation Safety Awareness Decreased Safety Awareness Memory Description Short Term Impaired Strength Lower Extremity Strength Assessment Bilaterally Impaired Hip 3-/5 Knee 3+/5 Ankle 3+/5 Muscle Tone Muscle Tone WNL Yes M6 PT-IP Treatment Start: 05/28/23 14:41 Freq: NEEDED Status: Active Protocol: Document 05/29/23 13:59 TS (Rec: 05/29/23 14:14 TS [id number]) Physical Therapy Treatment Education Education Provided Safety M7 PT-IP Assessment and Plan Start: 05/28/23 14:41 Freq: NEEDED Status: Active Protocol: Document 05/29/23 13:59 TS (Rec: 05/29/23 14:14 TS [id number]) PT Summary Assessment and Plan Potential Rehabilitation Potential Fair Summary Impairments Pain,ROM,Strength,Balance, Coordination,Sensation,Tone, Cognition,Bed Mobility, Transfers,Gait,Activity Tolerance Progress Towards Goals Slow Progress due to Medical Issues,Slow Progress due to Activity Tolerance Assessment Summary Simi is making some progress with her mobility but remains limited by ongoing medical issuess and poor activity tolerance. She is Ellie for STS x2 with FWW, she required heavy UE assist on FWW to come into standing. She progressed her gait to ~75' CGA with FWW, she is unsteady and has poor tolerance to ambulation, she fatigues quickly. She requires ModA for bed mobility due to poor strength and ongoing swelling in bilateral LE's. PT continues to recommend SNF at this time to progress strength , functional mobility and activity tolerance before safe d/c home. Goals Bed Mobility Goal Minimal Assistance Transfer Goal Minimal Assistance,Front Wheeled Walker Gait Goal Minimal Assistance,Front Wheel Walker Gait Distance 50 Other Goals improve bed mobility, transfers, ambulation using 4WW 150 ft SBA Days to Meet Goals 10 Frequency of Treatment Frequency Of Treatment Once a Day Treatment Plan Physical Therapy Treatment Plan Bed Mobility Training,Transfer Training,Gait Training, Therapeutic Exercise,Balance Retraining,Discharge Planning, Hot or Cold Pack,Neuromuscular Re-ed,Coordination Retraining ,Manual Therapy Precautions Other Precautions falls Recommendations To Nursing Amount of Assist Needed 1 Person Assist Discharge Recommendations PT Discharge Recommendations SNF Rehab Transportation Needs at Discharge Wheelchair/Cabulance
--- NOTE | 2023-05-29 13:50 | OT.IP.EVAL ---
Current Diagnoses Cellulitis, unspecified (05/28/23) Past Medical History (Last Reviewed 05/28/23 @ 07:35 by Lencho Patino MD) Atrial fibrillation Diarrhea Hyponatremia Laceration of right great toe Obesity (BMI 30-39.9) Obstructive sleep apnea Palpitations Snoring Viral gastroenteritis Surgical History (Last Reviewed 05/28/23 @ 07:35 by Lencho Patino MD) No pertinent past surgical history Occupational Therapy Inpatient Evaluation/Re-Eval to do grocery shopping for her M1 PT/OT-IP Prior Functional Status Start: 05/29/23 13:55 Freq: NEEDED Status: Active Protocol: Document 05/29/23 13:55 [facility] (Rec: 05/29/23 14:13 [facility] [id number]) Medical Review Prior Functional Status Medical History Reviewed Yes Communication able to make needs known Mobility and Gait pt stated that she was modified independent with all mobilities and ambulation with 4WW Activities of Daily Living and IADL's Pt able to do all ADL and IADL needs but would wait for her granddaughter to come to assist for showering needs. Social History Household Members children Living Arrangements Apartment/Condo Number of Floors (Floors) One Floor Number of Stairs To Enter/Railing? no steps to enter Home Environment Standard Height Toilet,Tub/ Shower Home Equipment Four Wheel Walker,Grab Bars In Shower Additional Social History Comment pt has a recliner that she can sleep on if needed pt has her neighbors/friends to do grocery shopping for her M2 OT-IP Current Condition Start: 05/29/23 13:55 Freq: Status: Active Protocol: Document 05/29/23 13:55 [facility] (Rec: 05/29/23 14:13 [facility] [id number]) Occupational Therapy Current Condition Current Condition Evaluation Date 05/29/23 Treatment Diagnosis GLF, weakness, decreased mobility Diagnosis Onset Date 05/28/23 M3 OT- IP Subjective and Pain Start: 05/29/23 13:55 Freq: Status: Active Protocol: Document 05/29/23 13:55 [facility] (Rec: 05/29/23 14:13 [facility] [id number]) OT- Subjective Occupational Therapy Visit Type Type Initial Evaluation Visit Start Time 13:05 Visit Stop Time 13:50 Occupational Therapy Visit Comments Patient Comments Pt agreed to get up and needing to use the bathroom. Patient/Caregiver Goals To go to skilled rehab. OT Pain Assessment Pain When Pain Assessed During Mobility Pain Present Pain Present Pain Reported M4 OT- IP ADL's Start: 05/29/23 13:55 Freq: Status: Active Protocol: Document 05/29/23 13:55 [facility] (Rec: 05/29/23 14:13 [facility] [id number]) OT HVG-[facility]df General Evaluation Self-Feeding Ability Independent OT ADL-Grooming General Evaluation Grooming Ability Independent OT ADL-Oral Care General Eval Areas of Assistance Retrieving/Set-Up of Items Comments Oral Care Comments Pt leaning of the counter for balance while doing oral care needs. OT ADL-Dressing General Eval Lower Body Dressing Ability Moderate Assistance Comments OT Dressing Comments Pt needing assist to help get the brief over her feet and socks at this time. OT ADL-Toileting General Evaluation Toileting Ability Minimal Assistance,Moderate Assistance Areas Needing Assistance Manage Clothing Comments OT Toileting Comments Assist for brief management and would benefit from assist for completeness to wipe at this time due to weakness and ability to reach back to wipe. Pt heavily lean to the left on her 4ww and reach back to wipe. Spoke of toilet paper aid. Pt states uses a squeeze bottle to assist with hygiene needs at home. OT ADL-Bathing Comments OT Bathing Comments Not perform, pt would benefit from MODA at this time. M5 OT- IP IADL's Start: 05/29/23 13:55 Freq: Status: Active Protocol: Document 05/29/23 13:55 [facility] (Rec: 05/29/23 14:13 [facility] [id number]) OT-Instrumental Activities of Daily Living Deficits IADL Deficits Identified Deficits Home Safety Awareness Awareness of Need for Assistance at Home Good Awareness Ability to Problem Solve Emergency Able to Problem Solve Situations Medication Management Medication Management Comments Pt states does her own at home . Money Management Money Management Comments Pt does her own at home. Meal Preparation Meal Preparation Comments Pt states able to prepare meals with increased time prior. Mat Linker Mat Linker Comments Pt states having more difficulty to do IADL needs recently. Driving Driving Comments Pt states has not been able to drive as recently unable to get into the car due to her weakness. M6 OT- IP Functional Cognition Start: 05/29/23 13:55 Freq: Status: Active Protocol: Document 05/29/23 13:55 [facility] (Rec: 05/29/23 14:13 [facility] [id number]) Cognitive Factors Limiting Selfcare Function Cognitive Ability Level of Alertness Alert Patient Orientation Name,Place,Situation Attention Span Ability Capable of Focused Attention, Capable of Sustained Attention Ability to Follow Commands Able to Follow Multi-Step Commands Cognitive Comments Cognitive Assessment Comments Pt able to follow commands for ADL and mobility needs. Pt may benefit from a cognitive assessment as pt states hit her head from the fall recently. Pt so far seemingly no cognitive issues from OT eval. OT- Vision and Hearing OT- Hearing Assessment OT- Hearing Assessment WFL OT- Vision Assessment Visual Acuity Glasses All The Time Occular Pursuits WFL Visual Convergence WFL M7 OT- IP Mobility and Balance Start: 05/29/23 13:55 Freq: Status: Active Protocol: Document 05/29/23 13:55 [facility] (Rec: 05/29/23 14:13 [facility] [id number]) OT- Bed Mobility Assessment Supine to Sit Supine to Sit Assist Moderate Assistance Sit to Supine Sit to Supine Assist Moderate Assistance Scooting Scooting to Edge of Bed Maximum Assistance OT-Transfer Assessment Sit to and From Stand Sit to and from Stand Minimal Assistance Transfers Transfer Ability Minimal Assistance Technique Transfer Destination Bed,Chair Transfer Technique Stand Step Pivot Devices Transfer Assistive Devices Gait Belt,4 Wheeled Walker Comments Mobility Comments ASIA to stand. MODA to help get her trunk upright and assist to help get her legs back into bed. Pt as she tires needing ASIA for balance with the 4ww. Pt tends to want to lean onto surfaces for her balance and activity tolerance. OT- Balance Assessment Sitting Balance and Reactions Static Sitting Balance Ability Normal Dynamic Sitting Balance Ability Good Standing Balance and Reactions Static Standing Balance Ability Fair Dynamic Standing Balance Ability Fair Comments Other Balance Tests/Deviations/Treatment Having to use the 4ww : M8 OT- IP Objective Assessments Start: 05/29/23 13:55 Freq: Status: Active Protocol: Document 05/29/23 13:55 [facility] (Rec: 05/29/23 14:13 [facility] [id number]) OT Gross Range of Motion Upper Extremity Range of Motion ROM Impairments Decreased at end ROM OT Strength Comments Strength Comments BUE proximal to distal 3+/5 to 4/5. M9 OT- IP Assessment and Plan Start: 05/29/23 13:55 Freq: Status: Active Protocol: Document 05/29/23 13:55 [facility] (Rec: 05/29/23 14:13 [facility] [id number]) OT Summary Assessment and Plan Potential Rehabilitation Potential Good Analytic Complexity at Evaluation Moderate Summary OT Impairments Pain,Range of Motion,Strength, Balance,Functional Mobility, Grooming,Dressing,Toileting, Bathing,Toilet Transfers, Shower Transfers,Activity Tolerance Progress Towards Goals Progressing Toward Goals Assessment Summary Pt MOD complexity and main barriers are decreased activity tolerance, balance, and now needing MOD assist for ADL and bed mobility needs. Pt is not at her baseline of being able to care for herself at this time and would greatly benefit from skilled rehab. Pt is very pleasant , motivated, and has a good plan for after skilled rehab. Pt has a granddaughter from [place] of [place] who is planning to move in with her next month. Goals Self-Feeding Goal Independent Grooming Goal Independent Dressing Goal Independent Toileting Goal Independent Bathing Goal Independent Toilet Transfer Goal Independent Shower Transfer Goal Independent Days to Meet Goals 10 Frequency of Treatment Frequency Of Treatment Once a Day Treatment Plan OT Treatment Plan ADL Training,Functional Mobility,Patient/Family Education,Discharge Planning Discharge Recommendations OT Discharge Recommendations SNF Rehab Home Equipment Needs shower chair versus tub bench, HHSP Transportation Needs at Discharge Private Vehicle,Wheelchair/ Cabulance
--- NOTE | 2023-05-29 14:56 | PC.NURSE ---
Day shift: Notified MD Patino of patient's low BP this AM. 500cc bolus given - patient and patient's daughter stated that she hardly drank anything yesterday. After bolus, BP improved, encouraged patient to continue drinking fluids. Patient stated she has tried all different kinds of compression stockings and KENISHA hose, including custom made ones, and all of them slid down and made a tourniquet. Meds continue to be crushed and mixed in apple sauce. BLE edemetous, no weeping. Pt OOB with 1 PA. Worked with PT/OT today. Will continue to monitor.
--- NOTE | 2023-05-29 15:49 | CM.DPNOTE ---
DCP Cont Lengthy conversation with patient and her daughter Adelita today; family concerned about discharge plan home because patient does not have family available to assist her 24/7 at this time. Montrell Ureña lives in [facility] near [place]. Therapies continue to recommend SNF. Reviewed dispo options, patient agreeable to SNF stay and hopes to return home as soon as she can w/assist from her family and increase in home care services. 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 Bethania later that patient also has [facility] (unbeknownst to patient and family). Spoke with [place] ISAAC Covarrubias P [phone] F [phone]. Requested review for SNF and faxed updated prog notes and therapy notes. Requested that JACQUELINE Sanchez, send referrals to [facility], [facility] and [facility]. [facility] No determination from [place] today, Friday contact at [place] will be P [phone] as Satish will not be in office. Patient and family updated. Provided senior resource guide and application for [facility] (P), senior care care [facility] to family. Application completed by montrell Ureña today and faxed to [facility] at F [phone] CM team following closely for coordination of discharge plan. Patient is not deemed safe for return home w/o 24/7 assist at this time and is agreeable to SNF stay. BOB
[2023-05-29] MEDS: polyethylene glycoL 3350 17 GM POWD.PACK PO (16:46)
[2023-05-29] MEDS: OXYCODONE IR 10 MG TABLET PO ×2 (18:15→22:06)
[2023-05-29] MEDS: dilTIAZem 30 MG TABLET 15 MG PO (20:45)
[2023-05-29] MEDS: INSULIN GLARGINE 100 UNIT/ML 3ML PEN 10 UNIT SUBCUT (20:47)
[2023-05-29] MEDS: SODIUM CHLORIDE 0.9% FLUSH 10 ML IV (20:48)
[2023-05-30] VITALS: BP 147/39; PULSE 70; RESP 18; TEMP 36.6; O2SAT 97
[2023-05-30] MEDS: OXYCODONE IR 10 MG TABLET PO ×2 (03:04→07:00)
[2023-05-30 04:00] VITALS: BP 150/50; PULSE 66; RESP 18; TEMP 36.9; O2SAT 97
--- NOTE | 2023-05-30 06:13 | PC.NURSE ---
Structural Architect Note-Patient is A/Ox4, using call light appropriately. Ambulates with her own walker, slow and steady. Oxycodone given per prn orders for bilateral leg pain. Woke up at 0230 with small pooling of diluted blood on pillow. Large clot observed in L upper mouth, rinsed and spit several times until clear, says it is tender, but not too painful. Will monitor.
[2023-05-30] MEDS: INSULIN LISPRO 100 UNIT/ML 3ML VIAL SUBCUT ×2 (07:44→12:22)
[2023-05-30 08:00] VITALS: BP 131/37; PULSE 64; RESP 15; TEMP 36.2; O2SAT 94
[2023-05-30 09:00] VITALS: O2SAT 94
[2023-05-30] MEDS: polyethylene glycoL 3350 17 GM POWD.PACK PO (09:29)
[2023-05-30] MEDS: TORSEMIDE 10 MG TABLET 40 MG PO (09:29)
[2023-05-30] MEDS: APIXABAN 5 MG TABLET PO (09:29)
[2023-05-30 09:30] VITALS: BP 131/37; PULSE 64
[2023-05-30] MEDS: dilTIAZem 30 MG TABLET 15 MG PO (09:30)
[2023-05-30] MEDS: CHOLECALCIFEROL (VITAMIN D3) 1,000 UNIT TABLET 4000 UNIT PO (09:30)
[2023-05-30] MEDS: SODIUM CHLORIDE 0.9% FLUSH 10 ML IV (09:31)
--- NOTE | 2023-05-30 10:59 | PT.IPTN ---
Current Diagnoses Cellulitis, unspecified (05/28/23) Physical Therapy Treatment Note M2 PT-IP Current Condition Start: 05/28/23 14:41 Freq: NEEDED Status: Active Protocol: Document 05/28/23 12:00 AB (Rec: 05/28/23 14:54 AB [id number]) Physical Therapy Current Condition Current Condition Evaluation Date 05/28/23 Treatment Diagnosis GLF; difficulty in walking Onset Date 05/28/23 M3 PT-IP Subjective Start: 05/28/23 14:41 Freq: NEEDED Status: Active Protocol: Document 05/30/23 12:08 TS (Rec: 05/30/23 12:20 TS [id number]) Subjective Physical Therapy Visit Type Type Treatment Note Visit Start Time 10:59 Visit Stop Time 11:30 Notes Family in room Number of SOLAR INSTALLATION CREW SUPERVISOR Visits 2 Physical Therapy Visit Comments Patient Comments Pt found asleep in bed, alert when awakened. Pt is agreeable to PT. M4 PT-IP Mobility and Gait Start: 05/28/23 14:41 Freq: NEEDED Status: Active Protocol: Document 05/30/23 12:08 TS (Rec: 05/30/23 12:20 TS [id number]) PT-Bed Mobility Assessment Supine to Sit Supine to Sit Moderate Assistance,1 Person Assistance,Bedrails Scooting Scooting to Edge of Bed Contact Guard Assistance PT-Transfer Assessment Sit to and From Stand Sit to and from Stand Standby Assistance,Contact Guard Assistance,1 Person Assistance,Use of Upper Extremities Equipment Transfer Assistive Device Gait Belt,Front Wheeled Walker Orthotic/Prosthetic Devices or Brace: Yes Comments Mobility Comments Supine to sit ModA for uprighting trunk with SHELTERED WORKSHOP WORKER assist. She scooted to EOB CGA with use of bedrails. STS from bed CGA with use of 4WW, pt is slow to stand, has good standing balance with no retroleaning. She ambulated in hallway ~80'CGA with 4WW, had no buckling or LOB, denied any dizziness. Pt ambulated back to room, requested to use toilet. pt performed her own pericare. STS from toilet SBA with FWW. pt ambulated to chair, family in room, all needs met. Gait Assessment Gait Gait Assistance Required: Contact Guard Assist,1 Person Assist Distance (Feet) 80 Assistive Devices Assistive Device 4 Wheeled Walker Orthotic/Prosthetic Devices or Brace: Yes Gait Deviations General Gait Pattern Antalgic,Decreased Stride Length,Decreased Feet Clearance,Flexed Trunk,Wide Based Gait Factors Limiting Gait Function Factors Limiting Gait Function Decreased Activity Tolerance, Decreased Strength, Incoordination,Limited Range of Motion,Pain,Poor Balance, Poor Safety Awareness Comments Gait Comments See mobility comments PT-Balance Assessment Sitting Balance and Reactions Static Sitting Balance Ability Good Dynamic Sitting Balance Ability Fair Standing Balance and Reactions Static Standing Balance Ability Fair Dynamic Standing Balance Ability Fair Device Used FWW M5 PT-IP Objective Assessments Start: 05/28/23 14:41 Freq: NEEDED Status: Active Protocol: Document 05/28/23 12:00 AB (Rec: 05/28/23 14:54 AB [id number]) Orientation Orientation/Cognition Level of Alertness Alert Orientation Name,Place,Situation Safety Awareness Decreased Safety Awareness Memory Description Short Term Impaired Strength Lower Extremity Strength Assessment Bilaterally Impaired Hip 3-/5 Knee 3+/5 Ankle 3+/5 Muscle Tone Muscle Tone WNL Yes M6 PT-IP Treatment Start: 05/28/23 14:41 Freq: NEEDED Status: Active Protocol: Document 05/30/23 12:08 TS (Rec: 05/30/23 12:20 TS [id number]) Physical Therapy Treatment Education Education Provided Safety M7 PT-IP Assessment and Plan Start: 05/28/23 14:41 Freq: NEEDED Status: Active Protocol: Document 05/30/23 12:08 TS (Rec: 05/30/23 12:20 TS [id number]) PT Summary Assessment and Plan Potential Rehabilitation Potential Fair Summary Impairments Pain,ROM,Strength,Balance, Coordination,Sensation,Tone, Cognition,Bed Mobility, Transfers,Gait,Activity Tolerance Progress Towards Goals Progressing Toward Goals Assessment Summary Simi is making some progress with her mobility this session. She requires ModA with HOB elevated to come into sitting EOB. She performed STS x1 CGA and x1SBA with use of 4WW. She ambulated ~80'CGA with 4WW, has no buckling or LOB and denied any dizziness. PT at this time is recommending SNF to improve strength, activity tolerance and functional mobility. Pt lives alone and will beenfit from daily PT and 24 hour care before safe d/c home. Goals Bed Mobility Goal Minimal Assistance Transfer Goal Minimal Assistance,Front Wheeled Walker Gait Goal Minimal Assistance,Front Wheel Walker Gait Distance 50 Other Goals improve bed mobility, transfers, ambulation using 4WW 150 ft SBA Days to Meet Goals 10 Frequency of Treatment Frequency Of Treatment Once a Day Treatment Plan Physical Therapy Treatment Plan Bed Mobility Training,Transfer Training,Gait Training, Therapeutic Exercise,Balance Retraining,Discharge Planning, Hot or Cold Pack,Neuromuscular Re-ed,Coordination Retraining ,Manual Therapy Precautions Other Precautions falls Recommendations To Nursing Amount of Assist Needed 1 Person Assist Discharge Recommendations PT Discharge Recommendations SNF Rehab Transportation Needs at Discharge Wheelchair/Cabulance
[2023-05-30 12:00] VITALS: BP 155/41; PULSE 65; RESP 15; O2SAT 98
--- NOTE | 2023-05-30 12:17 | P.DS_ITS ---
History of Present Illness History of Present Illness Chief complaint: GLF Narrative: From Night Doctor: 77 years old obese female with a past medical history of lymphedema and recent hospitalization for lower extremity cellulitis for a week at [facility] [facility] in first week of may, atrial fibrillation, obstructive sleep apnea, diabetes mellitus type 2 and multiple other medical issues was brought to the emergency room status post ground-level fall in her apartment.? It was a mechanical fall after she lost her balance tripped and fell forward striking her face against a basket of goods on the floor.? Patient was in a kneeling position for about 6 hours before she could alert someone to her presents with significant pain in the left knee due to position on the ground for so long.? Denies any trauma to other parts of her body.? Did have some bleeding from her nose after the fall but not now.? Denies any chest pain or shortness of breath.? Denies any neck pain or tingling numbness.? No loss of consciousness.? In the ED, noted to be saturating in the 90s on room air with a blood pressure of 146/50s.? Labs revealed a white count of 13.8 and a hemoglobin of 10.6.? Electrolytes were fairly unremarkable except for a potassium of 3.2 and a CPK level of 265.? X-ray of the knee is appearing to be negative but there is some irregularity on the left tibial plateau.? X-ray of the hip and CT scan of the head shows no acute process.? Patient had significant gait instability with severe pain and was admitted for further evaluation Additional history: The patient became quite exhausted from working with physical therapy in his sleeping heavily. She apparently had urinary and fecal incontinence as well. I did speak with her daughter for some time her recap her recent admission at the [place]. She notes that the patient had cellulitis was treated with 2 antibiotics. She also had massive lymphedema and was diuresed. The patient lives in [place] alone but has several brothers in the area. She is 8 children, 2 of whom are in [facility] in 6 of whom are in [place] where they all grew up. She notes that the patient is quite independent but not really leaving the house lately. She has food brought to her by 1 of her brothers. She is unsure if the [facility] hospitalization included a recommendation for rehabilitation stay or not. She also recounts the patient falling and being unable to call for assistance. Ultimately the neighbor heard her calling for help and called 911. Discharge Providers Provider Date of admission: 05/28/23 04:27 Discharge Date: 05/30/23 Primary care physician: Geri Herrera MD Consults: 05/28/23 05:11 Consult to Occupational Therapy Evaluate & Treat Comment: fall Physician Instructions: Evaluate and treat Consult to Physical Therapy Evaluate & Treat Comment: gait instability Physician Instructions: Evaluate and Treat 05/28/23 12:34 Consult to Speech Therapy Evaluate & Treat Comment: Physician Instructions: Evaluate and treat 05/28/23 13:26 Consult to Dietitian, Adult Routine Comment: Reason For Exam: Puree diet, assessed at high risk Consult to [facility] - Sales Representative Adding Machines Routine Comment: Consult to Speech Therapy Evaluate & Treat Comment: Physician Instructions: Evaluate and treat Discharge provider: Lencho Patino MD Summary Hospital Course Discharge Diagnosis: 1. Knee pain status post fall with gait instability in the setting of significant lymphedema and poor mobility.? Improved. 2. Hypertension, present on admission and stable. 3. Diabetes mellitus type 2 insulin-dependent.? Present on admission and active. -decrease Lantus to 10 units AM. 4. Lymphedema with the suspected cellulitis/stasis dermatitis with recent hospitalization.? Present on admission on active. -Keep the leg elevated and use Bertram wraps.?completed a recent?course of antibiotics. Dose of Torsemide was recently increased. -monitor redness and swelling. 5. Atrial Fibrillation.? Present on admission and stable. -Rate control with the home Cardizem and anticoagulation with Eliquis after verification of the home medication -this appears stable on current medications. 6. Gait instability. Consult physical therapy. Some of it is related to?pain and poor sleep per patient on the right leg. 7. History of Esophageal motility issues: Stable. -lichen planus per patient : need to be on a soft diet 8. Severe debilitation, present on admission and active. -PT/OT suggests SNF rehab. Hospital Course: The patient was admitted after ground level fall. She would knee pain. She would extensive imaging which is included in this note which was all negative for fracture. She was somewhat weak and somnolent for the 1st day but then became much more alert and was able to progress with physical therapy. No acute medical issues were identified. She was felt to be a great candidate for rehabilitation with half-way facility services. The patient was agreeable to this with a goal of returning to an independent living situation. Or chronic medications were continued while in the hospital. She did have a contusion to the right knee but no evidence of fracture. She does have severe arthritis of that knee. Status at Discharge Cognitive/behavioral status at discharge: oriented Functional status at discharge: uses cane/walker Overall status at discharge: patient is progressing back to baseline Time Spent with Patient Time spent: Greater than 30 minutes Exam Vital Signs (past 8 hours): - 05/30/23 08:00 05/30/23 09:00 05/30/23 09:30 Temperature 97.1 F L Pulse Rate 64 64 Respiratory Rate 15 Blood Pressure 131/37 L 131/37 L Pulse Oximetry 94 94 Oxygen Delivery Method Room Air Oxygen Flow Rate 0 Oxygen Delivery Method Room Air Oxygen Flow Rate 0 Narrative Exam Narrative: NAD, oriented Lungs clear Heart regular 1-2+ leg edema Objective Imaging Multiple studies:: Radiologist's impression: Leg duplex ultrasound negative for DVT. Right hip x-ray negative for fracture. Right knee x-ray negative for fracture, there is a small joint effusion and tricompartmental osteoarthritis. Head CT is negative for acute change. Left leg CT is negative for acute fracture. Labs 05/29/23 12:20 05/29/23 12:20 Labs: Laboratory Results - last 24 hr 05/29/23 12:20 WBC 9.1 RBC 3.52 L Hgb 9.8 L Hct 29.9 L MCV 84.8 MCH 27.8 MCHC 32.8 RDW 14.8 Plt Count 261 Sodium 138 Potassium 3.7 Chloride 102 Carbon Dioxide 30 BUN 17 Creatinine 0.97 Estimated GFR 60 BUN/Creatinine Ratio 17.5 Glucose 185 H Calcium 8.8 Total Bilirubin 0.6 AST 28 ALT 14 Alkaline Phosphatase 70 Total Protein 6.8 Albumin 3.3 L Globulin 3.5 Albumin/Globulin Ratio 0.9 L [facility] Medical History Obesity (BMI 30-39.9) Obstructive sleep apnea Snoring Hyponatremia Atrial fibrillation Palpitations Laceration of right great toe Diarrhea Viral gastroenteritis Surgical History No pertinent past surgical history Family History Family/Other Hypertension Diabetes mellitus Heart disease Alcohol abuse Father Loud snoring Sleep apnea Hypertension Heart disease Depression Alcohol abuse Mother Hypertension Diabetes mellitus Heart disease Depression Family/Other Loud snoring Sleep apnea Insomnia Restless leg Hypertension Diabetes mellitus Heart disease Depression Alcohol abuse Social History household members: children Smoking Status: Never smoker Discharge Assessment & Plan Assessment and Plan Assessment: 1. Knee pain status post fall with gait instability in the setting of significant lymphedema and poor mobility.? Improved. 2. Hypertension, present on admission and stable. 3. Diabetes mellitus type 2 insulin-dependent.? Present on admission and active. 4. Lymphedema with the suspected cellulitis/stasis dermatitis with recent hospitalization.? Present on admission on active. 5. Atrial Fibrillation.? Present on admission and stable. 6. Gait instability. Consult physical therapy. Some of it is related to?pain and poor sleep per patient on the right leg. 7. History of Esophageal motility issues: Stable. 8. Severe debilitation, present on admission and active. -PT/OT suggests SNF rehab. Plan of Treatment: She will be discharged to [facility]-way facility[facility]. She has gait instability and debilitation likely from her recent illness at the [facility]. Discharge Plan Discharge Plan Patient Disposition: SNF Transfer to: [facility] Transportation: Wheelchair Provider Discharge Comment: Stable for discharge to SNF I certify the postop hospital half-way care is medically necessary on a continuing basis for any conditions for which he/ she received care during this hospitalization.: Yes The receiving facility has agreed to accept transfer and provide medical treatment.: Yes Discharge orders & Medications Prescriptions: Continued Lantus U-100 Insulin 100 unit/mL solution 42 unit SUBCUT BEDTIME Qty: 0 lisinopril 20 mg tablet 40 mg PO DAILY Qty: 0 acetaminophen 325 mg Tablet 650 mg PO Q4H MDD 4000 mg PRN (Reason: Pain, Moderate) apixaban 5 mg Tablet 5 mg PO BID diltiazem HCl 30 mg tablet 15 mg PO BID tacrolimus 0.1 % ointment 1 applic TOPICAL DAILY PRN (Reason: Lichen plannus flare) cyanocobalamin (vitamin B-12) 1,000 mcg Tablet 5,000 mcg PO DAILY nitroglycerin [Nitrostat] 0.4 mg Tablet, Sublingual 0.4 mg SUBLINGUAL Q5-15M PRN (Reason: Chest Pain) Vitamin D3 4,000 unit Capsule 4,000 unit PO DAILY oxycodone 5 mg Tablet 10 mg PO Q4H PRN (Reason: Pain, Moderate) Qty: 25 0RF torsemide 20 mg tablet 40 mg PO DAILY Medication counseling provided by Pharmacist: No Follow up/Referrals: Geri Herrera MD [Primary Care Provider] - Discharge Health Status Multidrug resistant organism: No MDRO Diet/Activity/Treatments Diet: Carb-consistent/Diabetic Liquid consistency: Normal/Thin Special Rehabilitation Services Rehab type: Physical therapy and Occupational therapy Visit Report/Discharge Packet Stand Alone Forms: Patient Portal/API Discharge Data Primary Care Provider: Geri Herrera Attending Provider: Trung Santana Admit Date/Time: 05/28/23 04:27 Quality VTE Deep Vein Thrombosis/Pulmonary Embolism Present on Admission: No
--- NOTE | 2023-05-30 13:59 | CM.DPNOTE ---
MYCHAL Note Spoke with [facility] Jane Cory this morning P [phone]; [facility] auth received # [id number] Reviewed plan with patient and her chosen family members granddaughter Dayron P [phone] and her mom, patient's daughter, Erma P [phone] by speaker phone. Explained [facility] had approved SNF and patient requests [facility]. Placed call to [facility] who had beds for patient's admission today. Transport arranged for quill picking machine operator at 1430. JACQUELINE Sanchez, coordinated the remainder of this discharge. Patient wants to assign her granddaughter Dayron as DPOA and her daughter Erma as b/u agent. Patient explains that Dayron plans to move in with patient within the month to provide care. Provided DPOA ppk for patient and family's review and provided witness along with PRISCA Sidhu as patient signed this document. Signed DPOA ppk will be scanned into patient's chart. Plan: Discharge to [facility] via cabulance. [facility] auth in place. BOB
--- NOTE | 2023-05-30 14:50 | PC.NURSE ---
Day shift: Called SANTIAGO Faulkner at [facility] to give report for patient discharge from acute care to SNF. PIV removed prior to discharge. All belongings with patient. SANTIAGO Paulino gave patient's belongings that were placed in safe back to patient prior to discharge. [email or web address] transport arrived at 1430 to hot die picker patient. Frakes envelope with all patient information including hard scripts given to [facility] transport. [facility] transport escorted patient via wheelchair to exit.
== END 2023-05-30 14:40 ==
LOC: ED 04:24 → AC 04:33
PROVIDERS: Hospitalist; Admitting Provider Internal Medicine; Emergency Provider Family Medicine Addiction Medicine; PCP Internal Medicine; Referring Provider Family Medicine Addiction Medicine; Visit Provider Internal Medicine
DX: S80.02XA Contusion of left knee, initial encounter (principal); S00.83XA Contusion of other part of head, initial encounter; W01.0XXA Fall on same level from slipping, tripping and stumbling without subsequent striking against object, initial encounter; Y92.039 Unspecified place in apartment as the place of occurrence of the external cause; E87.6 Hypokalemia; M62.82 Rhabdomyolysis; I89.0 Lymphedema, not elsewhere classified; G47.33 Obstructive sleep apnea (adult) (pediatric); E11.9 Type 2 diabetes mellitus without complications; I10 Essential (primary) hypertension; Z79.4 Long term (current) use of insulin; R26.89 Other abnormalities of gait and mobility; E66.01 Morbid (severe) obesity due to excess calories; Z68.41 Body mass index [BMI] 40.0-44.9, adult; R54 Age-related physical debility
CPT/HCPCS: 36415; 70450; 73502; 73562; 73700; 80053; 81001; 82550; 82962; 85025; 85027; 87077; 87086; 87186; 92610; 93005; 93971; 94760; 96360; 96372; 97116; 97162; 97166; 97530; 97535; 99284; G0378

== ENCOUNTER 2023-08-23 14:46 | Emergency (ER) | payer OTHER, SELFPAY ==
[2023-05-28 04:35] VITALS: BMI 40.1
[2023-08-23 14:56] VITALS: BP 140/63; PULSE 78; RESP 17; TEMP 37.2; O2SAT 97; BMI 36.8
--- NOTE | 2023-08-23 15:27 | ED.SKABFB ---
HPI - Skin/Abscess/Foreign Bdy <Hector Aguilera PA-C - Last Filed: 08/23/23 16:18> General Chief complaint: Skin/Abscess/Foreign Body Stated complaint: Red rash Time Seen by Provider: 08/23/23 15:03 Source: patient Mode of arrival: Ambulatory History of Present Illness HPI narrative: This is a 77-year-old female presents emergency department due to a new onset rash affecting her bilateral thighs. States that it feels itchy. Denies any significant pain. States that this began at about midnight last night. Denies any fevers, nausea, vomiting, or any other concerning signs or symptoms. Takes apixaban daily for AFib. History of venous stasis insufficiency. Related Data Home Medications Medication Instructions Recorded Confirmed acetaminophen 325 mg tablet 650 mg PO Q4H PRN Pain, Moderate 09/24/17 05/28/23 apixaban 5 mg tablet 5 mg PO BID 09/24/17 05/28/23 cholecalciferol (vitamin D3) 100 4,000 unit PO DAILY 11/05/17 05/28/23 mcg (4,000 unit) capsule (Vitamin D3) cyanocobalamin (vitamin B-12) 5,000 mcg PO DAILY 11/05/17 05/28/23 1,000 mcg tablet nitroglycerin 0.4 mg sublingual 0.4 mg sublingual Q5-15M PRN Chest 11/05/17 05/28/23 tablet (Nitrostat) Pain diltiazem HCl 30 mg tablet 15 mg PO BID 04/05/20 05/28/23 insulin glargine 100 unit/mL 42 unit SUBCUT BEDTIME #0 mL 04/05/20 05/29/23 subcutaneous solution (Lantus U-100 Insulin) lisinopril 20 mg tablet 40 mg PO DAILY #0 tabs 04/05/20 05/28/23 tacrolimus 0.1 % topical ointment 1 applic topical DAILY PRN Lichen 04/05/20 05/29/23 plannus flare torsemide 20 mg tablet 40 mg PO DAILY 04/05/20 05/28/23 Previous Rx's Medication Instructions Recorded oxycodone 5 mg tablet 10 mg (2 x 5 mg) PO Q4H PRN Pain, 05/30/23 Moderate #25 tabs Allergies Allergy/AdvReac Type Severity Reaction Status Date / Time meperidine [From DEMEROL] Allergy Mild Verified 08/23/23 14:55 metoprolol [METOPROLOL] Allergy Mild significant Verified 08/23/23 14:55 bradycardia pioglitazone [From ACTOS] Allergy Mild Unknown Verified 08/23/23 14:55 prochlorperazine Allergy Mild Agitated Verified 08/23/23 14:55 [From COMPAZINE] rosiglitazone [From AVANDIA] Allergy Mild Unknown Verified 08/23/23 14:55 venom-honey bee Allergy Mild Swelling Verified 08/23/23 14:55 [BEE VENOM (HONEY BEE)] pseudoephedrine Allergy Unknown Verified 08/23/23 14:55 [From ACTIFED] triprolidine [From ACTIFED] Allergy Unknown Verified 08/23/23 14:55 adhesive [ADHESIVE] AdvReac Mild Rash Verified 08/23/23 14:55 aspirin [ASPIRIN] AdvReac Mild Gastrointestinal Verified 08/23/23 14:55 Upset sulfamethoxazole AdvReac Mild Rash Verified 08/23/23 14:55 [From BACTRIM] trimethoprim [From BACTRIM] AdvReac Mild Rash Verified 08/23/23 14:55 iv contrast Allergy Anaphylaxis Uncoded 08/23/23 14:55 PORK AdvReac Unknown Hives Uncoded 08/23/23 14:55 Review of Systems <Hector Aguilera PA-C - Last Filed: 08/23/23 16:18> Review of Systems Narrative: GENERAL: Denies chills, fatigue, malaise, fever, sweats. HEENT: Denies sinus pain, ear pain, sore throat, difficulty swallowing, dizziness. RESPIRATORY: Denies dyspnea, cough, wheezing, hemoptysis, sputum. CARDIOVASCULAR: Denies chest pain, palpitations, orthopnea, edema, GASTROINTESTINAL: Denies nausea, vomiting, abdominal pain, diarrhea, constipation, melena. : Denies dysuria, frequency, incontinence, hematuria, urinary retention. MUSCULOSKELETAL: denies weakness, joint pain, or bony pain SKIN: Reports rash to the bilateral thighs NEUROLOGIC: Denies weakness, headache, numbness, change in speech, confusion, seizures, incoordination. PSYCHIATRIC: No concerning psychosocial issues. 12 point review of systems is negative except for those stated above Patient History <Hector Aguilera PA-C - Last Filed: 08/23/23 16:18> Medical History Obesity (BMI 30-39.9) Obstructive sleep apnea Snoring Hyponatremia Atrial fibrillation Palpitations Laceration of right great toe Diarrhea Viral gastroenteritis Surgical History No pertinent past surgical history Family History Family/Other Hypertension Diabetes mellitus Heart disease Alcohol abuse Father Loud snoring Sleep apnea Hypertension Heart disease Depression Alcohol abuse Mother Hypertension Diabetes mellitus Heart disease Depression Family/Other Loud snoring Sleep apnea Insomnia Restless leg Hypertension Diabetes mellitus Heart disease Depression Alcohol abuse Social History household members: children Smoking Status: Never smoker Smoking Status: Never smoker alcohol intake frequency: other Substance Use Type: does not use Exam <Hector Aguilera PA-C - Last Filed: 08/23/23 16:18> Narrative Exam Narrative: GENERAL: Well-developed patient, in mild distress. HEAD: Atraumatic. Normocephalic. EYES: Pupils equal round and reactive. Extraocular motions intact. No scleral icterus. No injection or drainage. ENT: Nose without bleeding, purulent drainage. Throat without erythema, tonsillar hypertrophy or exudate. Airway patent. NECK: Trachea midline. Non tender EXTREMITIES: No edema or joint tenderness. NEURO: AOx3. SKIN: Petechiae noted to the bilateral thighs. Patient has a history of chronic venous stasis deficiency which is notable on exam. Neurovascularly intact throughout. Initial Vital Signs Initial Vital Signs: Vital Signs Temperature 98.9 F 08/23/23 14:56 Pulse Rate 78 08/23/23 14:56 Respiratory Rate 17 08/23/23 14:56 Blood Pressure 140/63 08/23/23 14:56 Pulse Oximetry 97 08/23/23 14:56 Oxygen Delivery Method Room Air 08/23/23 14:56 <Yissel Reyes DO - Last Filed: 08/24/23 07:17> Initial Vital Signs Initial Vital Signs: Vital Signs Temperature 98.9 F 08/23/23 14:56 Pulse Rate 78 08/23/23 14:56 Respiratory Rate 17 08/23/23 14:56 Blood Pressure 140/63 08/23/23 14:56 Pulse Oximetry 97 08/23/23 14:56 Oxygen Delivery Method Room Air 08/23/23 14:56 Course <Hector Aguilera PA-C - Last Filed: 08/23/23 16:18> Orders Ordered: ED Orders 08/23/23 15:20 CMP [Comprehensive Metabolic Panel] Stat Complete Blood Count AUTO DIFF Stat PTT Partial Thromboplastin Tera Stat Prothrombin Time INR Stat Vital Signs Vital signs: Vital Signs - 8 hr 08/23/23 14:56 Temperature 98.9 F Pulse Rate 78 Respiratory Rate 17 Blood Pressure 140/63 Pulse Oximetry 97 Oxygen Delivery Method Room Air <Yissel Reyes DO - Last Filed: 08/24/23 07:17> Orders Ordered: ED Orders 08/23/23 15:20 CMP [Comprehensive Metabolic Panel] Stat Complete Blood Count AUTO DIFF Stat PTT Partial Thromboplastin Tera Stat Prothrombin Time INR Stat Vital Signs Vital signs: Vital Signs - 8 hr 08/23/23 14:56 Temperature 98.9 F Pulse Rate 78 Respiratory Rate 17 Blood Pressure 140/63 Pulse Oximetry 97 Oxygen Delivery Method Room Air MDM - Skin/Abscess/Foreign Bdy <Hector Aguilera PA-C - Last Filed: 08/23/23 16:18> Lab Data 08/23/23 15:20 08/23/23 15:20 Labs: Lab Results 08/23/23 Range/Units 15:20 WBC 8.6 (4.5-11.0) X10^3/uL RBC 3.88 L (4.0-5.2) X10^6/uL Hgb 10.1 L (12.0-16.0) g/dL Hct 31.0 L (36-46) % MCV 79.7 L (80-100) fL MCH 26.1 (26-34) PG MCHC 32.7 (30-36) % RDW 15.2 H (11.6-14.8) % Plt Count 260 (150-400) X10^3/uL Neut % (Auto) 66.9 (50-75) % Lymph % (Auto) 23.1 L (25-40) % [place] % (Auto) 8.3 (3-14) % Eos % (Auto) 1.2 L (2-4) % Baso % (Auto) 0.5 (0-2) % Neut # (Auto) 5800 (2658-1564) /uL Lymph # (Auto) 2000 (3222-2966) /uL [place] # (Auto) 700 (0-900) /uL Eos # (Auto) 100 (0-450) /uL Baso # (Auto) 0 (0-100) /uL PT 16.9 H (9.4-12.5) SECONDS INR 1.5 H (0.9-1.3) APTT 34 (25.1-36.5) SECONDS Sodium 135 L (137-145) mmol/L Potassium 3.8 (3.4-5.1) mmol/L Chloride 101 (98-107) mmol/L Carbon Dioxide 27 (22-32) mmol/L BUN 25 H (7-17) mg/dL Creatinine 1.17 H (0.52-1.04) mg/dL Estimated GFR 48 L (>60) mL/min BUN/Creatinine Ratio 21.4 (6-22) Glucose 185 H (80-110) mg/dL Calcium 9.0 (8.4-10.2) mg/dL Total Bilirubin 0.5 (0.2-1.3) mg/dL AST 17 (14-36) IU/L ALT 10 (<35) IU/L Alkaline Phosphatase 77 (38-126) U/L Total Protein 7.4 (6.3-8.2) g/dL Albumin 3.8 (3.5-5.0) g/dL Globulin 3.6 (1.7-4.1) g/dL Albumin/Globulin Ratio 1.1 (1.0-2.8) MDM Narrative Medical decision making narrative: ED course: This is a 77-year-old female presents to the emergency department due to petechiae affecting her bilateral thighs. Patient has chronic venous stasis insufficiency as well the on the exam. Takes apixaban daily for AFib. She denies any chest pain, shortness of breath, neck stiffness, fevers, or any other systemic symptoms. Complaining solely of the petechiae affecting her thighs. Her lab work today was reassuring. At this time do not suspect any acute emergent causes of the patient's petechiae. She will follow up with the primary care provider on Friday at the [place] for further investigation and management. CC: Leg rash Complicating co-morbidities: On Eliquis for AFib Data collected from: Previous notes Medical records reviewed: Patient was seen about 3 months ago due to a ground level fall. Takes apixaban for atrial fibrillation. History of obesity. Chronic pain takes no narcotics 4 times a day on a scheduled basis, hypertension, diabetes. Differential considered, but not limited to: Thrombocytopenia, vasculitis, trauma, infection Exam documented above, pertinent findings include: Petechiae noted to bilateral thighs Lab Test results independently reviewed as above. Pertinent findings: CBC showed no leukocytosis, hemoglobin of 10.1 which appears chronic with the patient. Platelets within normal limits. No significant abnormalities on PT INR. CMP showed no significant new changes. Imaging studies independently reviewed: None obtained Scores Used: None MIPS Elements: None Consultations: None Treatments: None Re-evaluations: None Discussion: Discussed plan with the patient was comfortable with the plan Diagnosis: Petechiae Disposition: see below, along with detailed discharge instructions that have been reviewed with patient as well as indications for ED re-evaluation and additional outpatient follow up <Yissel Reyes DO - Last Filed: 08/24/23 07:17> Lab Data Labs: Lab Results 08/23/23 Range/Units 15:20 WBC 8.6 (4.5-11.0) X10^3/uL RBC 3.88 L (4.0-5.2) X10^6/uL Hgb 10.1 L (12.0-16.0) g/dL Hct 31.0 L (36-46) % MCV 79.7 L (80-100) fL MCH 26.1 (26-34) PG MCHC 32.7 (30-36) % RDW 15.2 H (11.6-14.8) % Plt Count 260 (150-400) X10^3/uL Neut % (Auto) 66.9 (50-75) % Lymph % (Auto) 23.1 L (25-40) % [place] % (Auto) 8.3 (3-14) % Eos % (Auto) 1.2 L (2-4) % Baso % (Auto) 0.5 (0-2) % Neut # (Auto) 5800 (6229-9931) /uL Lymph # (Auto) 2000 (9550-5837) /uL [place] # (Auto) 700 (0-900) /uL Eos # (Auto) 100 (0-450) /uL Baso # (Auto) 0 (0-100) /uL PT 16.9 H (9.4-12.5) SECONDS INR 1.5 H (0.9-1.3) APTT 34 (25.1-36.5) SECONDS Sodium 135 L (137-145) mmol/L Potassium 3.8 (3.4-5.1) mmol/L Chloride 101 (98-107) mmol/L Carbon Dioxide 27 (22-32) mmol/L BUN 25 H (7-17) mg/dL Creatinine 1.17 H (0.52-1.04) mg/dL Estimated GFR 48 L (>60) mL/min BUN/Creatinine Ratio 21.4 (6-22) Glucose 185 H (80-110) mg/dL Calcium 9.0 (8.4-10.2) mg/dL Total Bilirubin 0.5 (0.2-1.3) mg/dL AST 17 (14-36) IU/L ALT 10 (<35) IU/L Alkaline Phosphatase 77 (38-126) U/L Total Protein 7.4 (6.3-8.2) g/dL Albumin 3.8 (3.5-5.0) g/dL Globulin 3.6 (1.7-4.1) g/dL Albumin/Globulin Ratio 1.1 (1.0-2.8) Discharge Plan Departure Patient Disposition: Home Clinical Impression: Petechiae Activity Restrictions/Additional Instructions: Thank you for coming to the [facility] Emergency Department today. As we discussed your lab work today was reassuring. At this time I do not believe that there are any emergent causes of the petechiae you have noted to your bilateral thighs. Please do best keep him elevated if there is any discomfort. Please continue taking the apixaban you are prescribed. Please follow up with your primary care provider on Friday for further evaluation and management. Please return to the emergency department if you develop any chest pain, shortness of breath, fevers, neck stiffness, or any other concerning signs or symptoms. I hope you feel better soon. Please follow up with your primary care provider within a week if your symptoms continue. If you do not have a primary care provider please contact the [facility] Resource line at [phone]. They will ask some questions about your medical history and help you get set up with a provider in the community. Prescriptions: No Action Lantus U-100 Insulin 100 unit/mL solution 42 unit SUBCUT BEDTIME Qty: 0 lisinopril 20 mg tablet 40 mg PO DAILY Qty: 0 acetaminophen 325 mg Tablet 650 mg PO Q4H MDD 4000 mg PRN (Reason: Pain, Moderate) apixaban 5 mg Tablet 5 mg PO BID diltiazem HCl 30 mg tablet 15 mg PO BID tacrolimus 0.1 % ointment 1 applic TOPICAL DAILY PRN (Reason: Lichen plannus flare) cyanocobalamin (vitamin B-12) 1,000 mcg Tablet 5,000 mcg PO DAILY nitroglycerin [Nitrostat] 0.4 mg Tablet, Sublingual 0.4 mg SUBLINGUAL Q5-15M PRN (Reason: Chest Pain) Vitamin D3 4,000 unit Capsule 4,000 unit PO DAILY oxycodone 5 mg Tablet 10 mg PO Q4H PRN (Reason: Pain, Moderate) Qty: 25 0RF torsemide 20 mg tablet 40 mg PO DAILY Referrals: Geri Herrera MD [Primary Care Provider] - Stand Alone Forms: Patient Portal/API ED Sign-out <Yissel Reyes DO - Last Filed: 08/24/23 07:17> Cosign ED Attending Cosjajaature Attestation: I was available for consultation.
[2023-08-23 15:38] LABS: Add Manual Diff / Slide Review NO; Basophils Absolute Auto 0 /uL (0-100); Basophils Percent Auto 0.5 % (0-2); Eosinophils Absolute Auto 100 /uL (0-450); Eosinophils Percent Auto 1.2 % (2-4); Hemoglobin 10.1 g/dL (12.0-16.0); Lymphocytes Absolute Auto 2000 /uL (1100-4500); Lymphocytes Percent Auto 23.1 % (25-40); Mean Corpuscular HGB Conc 32.7 % (30-36); Mean Corpuscular Hemoglobin 26.1 PG (26-34); Mean Corpuscular Volume 79.7 fL (80-100); Monocytes Absolute Auto 700 /uL (0-900); Monocytes Percent Auto 8.3 % (3-14); Neutrophils Absolute Auto 5800 /uL (1500-7000); Neutrophils Percent Auto 66.9 % (50-75); Platelet Count 260 X10^3/uL (150-400); Red Blood Cell Count 3.88 X10^6/uL (4.0-5.2); Red Cell Distribution Width 15.2 % (11.6-14.8); White Blood Cell Count 8.6 X10^3/uL (4.5-11.0)
[2023-08-23 15:47] LABS: Alanine Aminotransferase 10 IU/L (<35); Albumin 3.8 g/dL (3.5-5.0); Albumin Globulin Ratio 1.1 (1.0-2.8); Alkaline Phosphatase 77 U/L (38-126); Aspartate Aminotransferase 17 IU/L (14-36); BUN Creatinine Ratio 21.4 (6-22); Bilirubin Total 0.5 mg/dL (0.2-1.3); Blood Urea Nitrogen 25 mg/dL (7-17); Carbon Dioxide 27 mmol/L (22-32); Chloride 101 mmol/L (98-107); Estimated Glomerular Filt Rate 48 mL/min (>60); Globulin 3.6 g/dL (1.7-4.1); Glucose 185 mg/dL (80-110); HEMOLYSIS < 15 (0-50); Potassium 3.8 mmol/L (3.4-5.1); Sodium 135 mmol/L (137-145); Total Protein 7.4 g/dL (6.3-8.2)
[2023-08-23 15:48] LABS: INR 1.5 (0.9-1.3); Prothrombin Time 16.9 SECONDS (9.4-12.5)
[2023-08-23 15:51] LABS: PTT Partial Thromboplastin Tim 34 SECONDS (25.1-36.5)
[2023-08-23 16:31] VITALS: BP 134/62; PULSE 72; RESP 18; O2SAT 99
== END 2023-08-23 16:44 | disposition home or self-care (01) ==
PROVIDERS: Emergency Medicine; Emergency Provider Physician Assistant Medical; PCP Internal Medicine; Referring Provider Internal Medicine
DX: R23.3 Spontaneous ecchymoses (principal); Z79.01 Long term (current) use of anticoagulants
CPT/HCPCS: 80053; 85025; 85610; 85730; 99281; 99283